=== PATIENT | male | born 1940 | race Caucasian/White ===

== ENCOUNTER → 2017-03-06 | Outpatient (CLI) | payer MEDICARE, BC ==
--- NOTE | 2017-03-06 10:42 | EST ---
DATE OF SERVICE: 03/06/2017 AGE: 76Y SEX: M HT: 68" WT: 177 lbs. Protocol Goran: Other: X Stage: Dur. of Exercise: *Heart Rate Blood Pressure *Rest: 71 Rest: 148/81 * *Max. Achieved: 87 Maximum BP: 138/76 85% PMHR: 124 100% PMHR: 146 *METS: INDICATIONS: Shortness of breath. MEDICATIONS: O2, BP medication, Metformin. CLINICAL INFORMATION: Hypertension, diabetes, shortness of breath, family history of coronary artery disease, history of smoking, 35 years, quit smoking 20 years ago, COPD. Resting ECG shows sinus rhythm, rate of 71 beats per minute, W[place] interval of 0.16, QRS of 0.08, normal ST-T waves. Utilizing a standard Lexiscan protocol, Lexiscan was given IV push followed by serial EKGs without any chest pain or pressure. Occasional PVCs are noted. No ST segment deviations or symptoms are reported. IMPRESSION: 1. Baseline rhythm is sinus with normal W[place] interval, normal ST-T waves. 2. Negative Lexiscan Cardiolite study. 3. Nuclear scintigrams to follow from radiology department.
--- NOTE | 2017-03-06 11:06 | NM ---
EXAMINATION TYPE: NM stress lexiscan cardiolite DATE OF EXAM: 03/06/2017 10:52 AM COMPARISON: NONE HISTORY: Precordial chest TECHNIQUE: After the intravenous administration of 11 mCi Tc 99m Sestamibi - Cardiolite resting SPEC T images acquired 45 minutes post injection. The patient received 0.4mg Lexiscan, 27.1 mCi Tc 99m Sestamibi - Stress images obtained [address] injection FINDINGS: Review of stress and rest SPECT images demonstrates no distinct perfusion abnormality. Fixed defect inferior wall may reflect remote insult versus attenuation artifact. Gated analysis shows normal wall motion with an estimated left ventricular ejection fraction of 55 %. IMPRESSION: No scintigraphic evidence for reversible ischemia.
== END | disposition home or self-care (01) ==
LOC: RADNMMAIN 08:37
PROVIDERS: ATTEND Internal Medicine
DX: R06.09 Other forms of dyspnea (principal)
CPT/HCPCS: 93017; 78452; A9500

== ENCOUNTER 2017-05-18 07:24 | Inpatient (IN) | payer MEDICARE, BC ==
[2017-05-18] MEDS ORDERED: IPRATROPIUM 0.5 MG/2.5 ML NEBU INHALATION STA (07:30)
[2017-05-18] MEDS ORDERED: ALBUTEROL NEBULIZED 2.5 MG/3 ML INHALATION STA (07:30)
[2017-05-18] MEDS ORDERED: methylPREDNISolone SOD SUCCI 125 MG/2 ML VIAL IV STA (07:30)
--- NOTE | 2017-05-18 07:33 | ED ---
General Adult HPI - General Stated complaint: sob Time Seen by Provider: 05/18/17 07:25 Source: RN notes reviewed - History of Present Illness Initial comments: This is a 76-year-old male with a past medical history significant for COPD per patient comes in today because of difficulty breathing. Patient states is difficult breathing started when he woke up this morning and he has and able to get relief. He called EMS to give him a breathing treatment on the way and he states he still is having hard time breathing. Patient denies any recent fever chills or cough. Patient denies any chest pain or palpitations. Patient denies any history of pulmonary and listens or congestive heart failure. Patient denies lightheadedness dizziness or near syncopal episode. Patient denies headache patient denies numbness weakness. Patient denies abdominal pain patient denies nausea vomiting or diarrhea. - Related Data Home Medications Medication Instructions Recorded Confirmed Chlorthalidone [Hygroton] 25 mg PO QAM 07/15/15 05/18/17 Doxycycline Hyclate [Vibramycin] 100 mg PO HS 07/15/15 05/18/17 Losartan [Cozaar] 50 mg PO QAM 07/15/15 05/18/17 Mometasone Furoate [Asmanex Hfa] 1 applic INHALATION DIRECTED PRN 07/15/15 Pravastatin Sodium [Pravachol] 80 mg PO HS 07/15/15 05/18/17 Pregabalin [Lyrica] 150 mg PO BID 07/15/15 05/18/17 Terazosin HCl [Hytrin] 10 mg PO DAILY 07/15/15 05/18/17 metFORMIN HCL [Glucophage] 500 mg PO BID 07/15/15 05/18/17 Propranolol HCl 60 mg PO HS 05/18/17 05/18/17 Allergies Allergy/AdvReac Type Severity Reaction Status Date / Time ciprofloxacin [From Cipro] Allergy Rash/Hives Verified 05/18/17 07:34 ciprofloxacin HCl Allergy Rash/Hives Verified 05/18/17 07:34 [From Cipro] Penicillins Allergy Rash/Hives Verified 05/18/17 07:34 Review of Systems ROS Statement: Those systems with pertinent positive or pertinent negative responses have been documented in the HPI. ROS Other: All systems not noted in ROS Statement are negative. Past Medical History Past Medical History: COPD, Diabetes Mellitus, Eye Disorder, Hyperlipidemia, Hypertension, Prostate Disorder, Skin Disorder Additional Past Medical History / Comment(s): DERMITITIS, LEFT CATARACT, HX OF NEUROPATHY JAYLA FEET History of Any Multi-Drug Resistant Organisms: None Reported Past Surgical History: Hernia Repair Past Anesthesia/Blood Transfusion Reactions: No Reported Reaction Smoking Status: Former smoker - Past Family History Father Family Medical History: Cancer Additional Family Medical History / Comment(s): COLON Sister(s) Family Medical History: Cancer Additional Family Medical History / Comment(s): REPRODUCTIVE General Exam - General Exam Comments Initial Comments: GENERAL: Patient is well-developed and well-nourished. Patient is nontoxic and well- hydrated and is in moderate distress. ENT: Neck is soft and supple. No significant lymphadenopathy is noted. Oropharynx is clear. Moist mucous membranes. Neck has full range of motion without eliciting any pain. EYES: The sclera were anicteric and conjunctiva were pink and moist. Extraocular movements were intact and pupils were equal round and reactive to light. Eyelids were unremarkable. PULMONARY: Patient has significantly decreased breath sounds with expiratory wheezing CARDIOVASCULAR: There is a regular rate and rhythm without any murmurs gallops or rubs. ABDOMEN: Soft and nontender with normal bowel sounds. No palpable organomegaly was noted. There is no palpable pulsatile mass. SKIN: Skin is clear with no lesions or rashes and otherwise unremarkable. NEUROLOGIC: Patient is alert and oriented x3. Cranial nerves II through XII are grossly intact. Motor and sensory are also intact. Normal speech, volume and content. Symmetrical smile. MUSCULOSKELETAL: Normal extremities with adequate strength and full range of motion. No lower extremity swelling or edema. No calf tenderness. LYMPHATICS: No significant lymphadenopathy is noted PSYCHIATRIC: Normal psychiatric evaluation. Normal interpersonal interactions appears functionally intact in deals appropriately with others. No signs of depression. No signs of anxiety. Course Vital Signs 05/18/17 05/18/17 05/18/17 07:25 07:40 07:56 Temperature 98.7 F Pulse Rate 80 75 79 Respiratory 20 Rate Blood Pressure 133/80 O2 Sat by Pulse 94 L Oximetry 05/18/17 05/18/17 05/18/17 08:04 08:10 08:24 Temperature Pulse Rate 76 76 79 Respiratory 16 Rate Blood Pressure 132/70 O2 Sat by Pulse 98 Oximetry 05/18/17 05/18/17 08:54 09:04 Temperature 98.6 F Pulse Rate 74 72 Respiratory 18 16 Rate Blood Pressure 118/63 124/67 O2 Sat by Pulse 92 L 94 L Oximetry Medical Decision Making - Medical Decision Making EKG shows normal sinus rhythm at 75 bpm [place] interval is 144 QRS is 98 QT interval 414 QTC is 462. Patient's EKG shows no ST segment elevation or depression or T wave abnormalities are noted. Chest x-ray shows a possible left lower lobe infiltrate - Lab Data Result diagrams: 05/18/17 07:45 05/18/17 07:45 Lab Results 05/18/17 05/18/17 05/18/17 Range/Units 07:45 07:45 07:45 WBC 14.2 H (3.8-10.6) k/uL RBC 5.98 H (4.30-5.90) m/uL Hgb 15.2 (13.0-17.5) gm/dL Hct 46.3 (39.0-53.0) % MCV 77.4 L (80.0-100.0) fL MCH 25.4 (25.0-35.0) pg MCHC 32.8 (31.0-37.0) g/dL RDW 16.3 H (11.5-15.5) % Plt Count 219 (150-450) k/uL Neutrophils % 86 % Lymphocytes % 7 % Monocytes % 4 % Eosinophils % 2 % Basophils % 0 % Neutrophils # 12.2 H (1.3-7.7) k/uL Lymphocytes # 1.0 (1.0-4.8) k/uL Monocytes # 0.6 (0-1.0) k/uL Eosinophils # 0.3 (0-0.7) k/uL Basophils # 0.0 (0-0.2) k/uL Hypochromasia Slight Anisocytosis Slight Microcytosis Slight PT (9.0-12.0) sec INR (<1.1) APTT (22.0-30.0) sec Sodium 143 (137-145) mmol/L Potassium 4.2 (3.5-5.1) mmol/L Chloride 104 (98-107) mmol/L Carbon Dioxide 28 (22-30) mmol/L Anion Gap 11 mmol/L BUN 16 (9-20) mg/dL Creatinine 0.97 (0.66-1.25) mg/dL Est GFR (MDRD) Af Amer >60 (>60 ml/min/1.73 sqM) Est GFR (MDRD) Non-Af >60 (>60 ml/min/1.73 sqM) Glucose 124 H (74-99) mg/dL Calcium 8.6 (8.4-10.2) mg/dL Magnesium 2.0 (1.6-2.3) mg/dL Total Bilirubin 0.7 (0.2-1.3) mg/dL AST 18 (17-59) U/L ALT 24 (21-72) U/L Alkaline Phosphatase 91 (38-126) U/L Total Creatine Kinase 69 (55-170) U/L CK-MB (CK-2) 1.7 (0.0-2.4) ng/mL CK-MB (CK-2) Rel Index 2.5 Troponin I <0.012 (0.000-0.034) ng/mL Total Protein 6.6 (6.3-8.2) g/dL Albumin 3.8 (3.5-5.0) g/dL 05/18/17 Range/Units 07:45 WBC (3.8-10.6) k/uL RBC (4.30-5.90) m/uL Hgb (13.0-17.5) gm/dL Hct (39.0-53.0) % MCV (80.0-100.0) fL MCH (25.0-35.0) pg MCHC (31.0-37.0) g/dL RDW (11.5-15.5) % Plt Count (150-450) k/uL Neutrophils % % Lymphocytes % % Monocytes % % Eosinophils % % Basophils % % Neutrophils # (1.3-7.7) k/uL Lymphocytes # (1.0-4.8) k/uL Monocytes # (0-1.0) k/uL Eosinophils # (0-0.7) k/uL Basophils # (0-0.2) k/uL Hypochromasia Anisocytosis Microcytosis PT 10.5 (9.0-12.0) sec INR 1.0 (<1.1) APTT 26.0 (22.0-30.0) sec Sodium (137-145) mmol/L Potassium (3.5-5.1) mmol/L Chloride (98-107) mmol/L Carbon Dioxide (22-30) mmol/L Anion Gap mmol/L BUN (9-20) mg/dL Creatinine (0.66-1.25) mg/dL Est GFR (MDRD) Af Amer (>60 ml/min/1.73 sqM) Est GFR (MDRD) Non-Af (>60 ml/min/1.73 sqM) Glucose (74-99) mg/dL Calcium (8.4-10.2) mg/dL Magnesium (1.6-2.3) mg/dL Total Bilirubin (0.2-1.3) mg/dL AST (17-59) U/L ALT (21-72) U/L Alkaline Phosphatase (38-126) U/L Total Creatine Kinase (55-170) U/L CK-MB (CK-2) (0.0-2.4) ng/mL CK-MB (CK-2) Rel Index Troponin I (0.000-0.034) ng/mL Total Protein (6.3-8.2) g/dL Albumin (3.5-5.0) g/dL Disposition Clinical Impression: Acute exacerbation of chronic obstructive airways disease, Pneumonia Disposition: ADMITTED IP TO THIS HOSP Referrals: Sahil Simms MD [Primary Care Provider] - 1-2 days Time of Disposition: 09:58
[2017-05-18 07:58] LABS: Anisocytosis Slight; Basophils % (A) 0 %; CH 24.9; CHCM 32.4; Eosinophils # (A) 0.3 k/uL (0-0.7); Eosinophils % (A) 2 %; HCT 46.3 % (39.0-53.0); HGB 15.2 gm/dL (13.0-17.5); Hypochromasia Slight; Luc % (Auto) 1; Lymphocytes % (A) 7 %; MCH 25.4 pg (25.0-35.0); MCHC 32.8 g/dL (31.0-37.0); MCV 77.4 fL (80.0-100.0); Mean Platelet Volume 6.9; Microcytosis Slight; Monocytes # (A) 0.6 k/uL (0-1.0); Monocytes % (A) 4 %; Neutrophils # (A) 12.2 k/uL (1.3-7.7); Neutrophils % (A) 86 %; RBC 5.98 m/uL (4.30-5.90); RDW 16.3 % (11.5-15.5); WBC 14.2 k/uL (3.8-10.6); WBC (Perox) 13.88
[2017-05-18 08:09] LABS: Prothrombin Time 10.5 sec (9.0-12.0)
[2017-05-18 08:10] LABS: ALT 24 U/L (21-72); AST 18 U/L (17-59); Alkaline Phosphatase 91 U/L (38-126); Anion Gap 11 mmol/L; Blood Urea Nitrogen 16 mg/dL (9-20); Calcium 8.6 mg/dL (8.4-10.2); Carbon Dioxide 28 mmol/L (22-30); Chloride 104 mmol/L (98-107); Glucose 124 mg/dL (74-99); Non-African American GFR(MDRD) >60 (>60 ml/min/1.73 sqM); Potassium 4.2 mmol/L (3.5-5.1); Sodium 143 mmol/L (137-145); Total Bilirubin 0.7 mg/dL (0.2-1.3); Total Protein 6.6 g/dL (6.3-8.2)
[2017-05-18 08:23] LABS: Creatine Kinase 69 U/L (55-170)
[2017-05-18 08:36] LABS: Creatine Kinase MB 1.7 ng/mL (0.0-2.4); Troponin I <0.012 ng/mL (0.000-0.034)
--- NOTE | 2017-05-18 08:45 | XR ---
EXAMINATION TYPE: XR chest 2V DATE OF EXAM: 05/18/2017 COMPARISON: 03/22/2017 HISTORY: 76-year-old male difficulty breathing TECHNIQUE: PA and lateral views FINDINGS: Heart is normal size. Large appearance to the main right and left pulmonary arteries. Hyperinflation with mild diffuse interstitial prominence. Some patchy opacities at the lung bases are unchanged. No significant pleural effusion. Opacity at the posterior lung base appears slightly increased. IMPRESSION: COPD, pulmonary arterial hypertension, and extensive chronic parenchymal changes. Patchy posterior ba silar opacity on the lateral view appears increased and could represent atelectasis or developing inf iltrate.
[2017-05-18] MEDS ORDERED: AZITHROMYCIN 500 MG in SODIUM CHLORIDE 0.9% 250 ML IVPB STA (09:24)
[2017-05-18] MEDS ORDERED: IPRATROPIUM-ALBUTEROL 3 ML NEB INHALATION PRN (09:58)
--- NOTE | 2017-05-18 11:49 | P.CNPUL ---
History of Present Illness Consult date: 05/18/17 Requesting physician: Partha Villalobos Reason for consult: COPD Chief complaint: Shortness of breath, cough and wheezing History of present illness: His is a 76-year-old white male with history of COPD, remote smoking history, patient is O2 dependent, not prednisone dependent, normally sees Dr. Bolanos as his primary care physician, and he sees Dr. Mackey for his pulmonary issues/ COPD. Patient presented with 1 day history of increased shortness of breath, cough, and wheezing. Cough is nonproductive, and denied any fever no chills no hemoptysis no chest pain. Patient has been compliant with all his meds and all his bronchodilators. Chest x-ray showed minimal atelectasis in the left base, but no clear-cut evidence of pneumonia. Patient had a slight leukocytosis on presentation, but no fever no chills were documented. denied any chest pain, no palpitations, no headaches no blurred vision no dizziness. No nausea no vomiting no abdominal pain no melena no hematemesis. No dysuria and no frequency no urgency. Patient has not smoked cigarettes in many years. Review of Systems 14 point review of systems were obtained, please refer to pertinent positives and negatives in HPI. Past Medical History Past Medical History: COPD, Diabetes Mellitus, Eye Disorder, Hyperlipidemia, Hypertension, Prostate Disorder, Skin Disorder Additional Past Medical History / Comment(s): DERMITITIS, LEFT CATARACT, HX OF NEUROPATHY JAYLA FEET History of Any Multi-Drug Resistant Organisms: None Reported Past Surgical History: Hernia Repair Past Anesthesia/Blood Transfusion Reactions: No Reported Reaction Smoking Status: Former smoker - Past Family History Father Family Medical History: Cancer Additional Family Medical History / Comment(s): COLON Sister(s) Family Medical History: Cancer Additional Family Medical History / Comment(s): REPRODUCTIVE Medications and Allergies Home Medications Medication Instructions Recorded Confirmed Type Chlorthalidone [Hygroton] 12.5 mg PO QAM 07/15/15 05/18/17 History Losartan [Cozaar] 50 mg PO QAM 07/15/15 05/18/17 History Mometasone Furoate [Asmanex Hfa] 2 puff INHALATION RT-DAILY PRN 07/15/15 History Pravastatin Sodium [Pravachol] 80 mg PO HS 07/15/15 05/18/17 History Pregabalin [Lyrica] 150 mg PO BID 07/15/15 05/18/17 History metFORMIN HCL [Glucophage] 500 mg PO BID 07/15/15 05/18/17 History Albuterol Nebulized [Ventolin 5 mg INHALATION RT-Q4H 05/18/17 05/18/17 History Nebulized] Albuterol Sulfate [Ventolin Hfa] 2 puff INHALATION RT-BID 05/18/17 05/18/17 History Clindamycin Phosphate [Cleocin T] 1 applic TOPICAL BID 05/18/17 05/18/17 History Desonide [Desowen] 1 applic TOPICAL BID 05/18/17 05/18/17 History Ketoconazole 2% Shampoo [Nizoral] 1 applic TOPICAL Q3D 05/18/17 05/18/17 History Propranolol HCl [Propranolol HCl 60 mg PO DAILY 05/18/17 05/18/17 History ER] Tiotropium [place] [Spiriva] 1 cap INHALATION RT-DAILY 05/18/17 05/18/17 History Allergies Allergy/AdvReac Type Severity Reaction Status Date / Time ciprofloxacin [From Cipro] Allergy Rash/Hives Verified 05/18/17 10:53 ciprofloxacin HCl Allergy Rash/Hives Verified 05/18/17 10:53 [From Cipro] Penicillins Allergy Rash/Hives Verified 05/18/17 10:53 Physical Exam Vitals: Vital Signs Temp Pulse Resp BP Pulse Ox 05/18/17 11:09 98.7 F 80 16 128/61 94 L 05/18/17 10:57 80 16 128/61 94 L 05/18/17 10:53 98.7 F 05/18/17 10:04 74 18 131/72 93 L 05/18/17 09:04 72 16 124/67 94 L 05/18/17 08:54 98.6 F 74 18 118/63 92 L 05/18/17 08:24 79 05/18/17 08:10 76 05/18/17 08:04 76 16 132/70 98 05/18/17 07:56 79 05/18/17 07:40 75 05/18/17 07:25 98.7 F 80 20 133/80 94 L Intake and Output 05/17/17 05/18/17 05/18/17 22:59 06:59 14:59 Other: Weight 78.018 kg Patient Weight 05/19/17 06:59 Weight 78.018 kg Physical Exam revealed a 76-year-old white male in mild respiratory distress, noted to be dyspneic with any activity even while trying to finish one sentence. HEENT:[Neck is supple.] [No neck masses.] [No thyromegaly.] [No JVD.] Chest: [Initially breath sound bilaterally, some wheezing on forced expiratory maneuver noted.] Cardiac Exam: [Normal S1 and S2, no S3 gallop, no murmur.] Abdomen: [Soft, nontender, no megaly, no rebound, no guarding, normal bowel sounds.] Extremities: [No clubbing, no edema, no cyanosis.] Neurological Exam: [No focal neurologic deficit.] Results COPD, extensive chronic parenchymal changes and basilar atelectasis as noted on the lateral view of the chest x-ray only. Strongly doubt pneumonia. - Laboratory Findings CBC and BMP: 05/18/17 07:45 05/18/17 07:45 PT/INR, D-dimer PT 10.5 sec (9.0-12.0) 05/18/17 07:45 INR 1.0 (<1.1) 05/18/17 07:45 Abnormal lab findings: Abnormal Labs 05/18/17 05/18/17 07:45 07:45 WBC 14.2 H RBC 5.98 H MCV 77.4 L RDW 16.3 H Neutrophils # 12.2 H Glucose 124 H Assessment and Plan Plan: 1 Acute exacerbation of COPD, and tracheobronchitis. 2 Multiple comorbidities including diabetes, hypertension, diabetic neuropathy, prostate disorder, and hypercholesterolemia. Recommendation: Continue present course of treatment including DuoNeb, methylprednisolone, Rocephin and Zithromax, I will add Symbicort, Mucinex, GI and DVT prophylaxis. We'll continue to follow. Time with Patient: Greater than 30
[2017-05-18] MEDS ORDERED: HEPARIN SODIUM,PORCINE 5,000 UNIT/ML 1 ML VIAL SQ SCH (12:00)
[2017-05-18] MEDS ORDERED: methylPREDNISolone SOD SUCCI 125 MG/2 ML VIAL IV SCH (12:00)
[2017-05-18] MEDS: PANTOPRAZOLE 40 MG TABLET PO SCH (13:30)
[2017-05-18] MEDS: guaiFENesin 600 MG TABLET.ER PO SCH ×2 (13:31→20:43)
[2017-05-18 17:08] LABS: Glucose,Whole Blood 151 mg/dL (75-99)
--- NOTE | 2017-05-18 17:17 | P.HPIM ---
History of Present Illness H&P Date: 05/18/17 Chief Complaint: Cough This is a pleasant 76-year-old patient of Dr. doyle. Patient chronic stable medical conditions include diabetes, hyperlipidemia, hypertension, peripheral neuropathy, and chronic hypoxic respiratory failure. Patient presents with 1 day of worsening short of breath cough with brown sputum and wheezing fever tired and rundown. Has maintained his appetite. Admitted with pneumonia start antibiotics. Review of Systems GEN.: [ Tired] EYES: [None] HEENT: [None] NECK: [None] RESPIRATORY: [As above] CARDIOVASCULAR: [None] GASTROINTESTINAL: [None] GENITOURINARY: [None] MUSCULOSKELETAL: [None] LYMPHATICS: [None] HEMATOLOGICAL: [None] PSYCHIATRY: [None] NEUROLOGICAL: [None] Past Medical History Past Medical History: COPD, Diabetes Mellitus, Eye Disorder, Hyperlipidemia, Hypertension, Prostate Disorder, Skin Disorder Additional Past Medical History / Comment(s): DERMITITIS, LEFT CATARACT, HX OF NEUROPATHY JAYLA FEET History of Any Multi-Drug Resistant Organisms: None Reported Past Surgical History: Hernia Repair Past Anesthesia/Blood Transfusion Reactions: No Reported Reaction Smoking Status: Former smoker Additional History: Patient smoked about 35 years, stopped 20 years ago. Lives by himself - Past Family History Father Family Medical History: Cancer Additional Family Medical History / Comment(s): COLON Sister(s) Family Medical History: Cancer Additional Family Medical History / Comment(s): REPRODUCTIVE Medications and Allergies Home Medications Medication Instructions Recorded Confirmed Type Chlorthalidone [Hygroton] 12.5 mg PO QAM 07/15/15 05/18/17 History Losartan [Cozaar] 50 mg PO QAM 07/15/15 05/18/17 History Mometasone Furoate [Asmanex Hfa] 2 puff INHALATION RT-DAILY PRN 07/15/15 History Pravastatin Sodium [Pravachol] 80 mg PO HS 07/15/15 05/18/17 History Pregabalin [Lyrica] 150 mg PO BID 07/15/15 05/18/17 History metFORMIN HCL [Glucophage] 500 mg PO BID 07/15/15 05/18/17 History Albuterol Nebulized [Ventolin 5 mg INHALATION RT-Q4H 05/18/17 05/18/17 History Nebulized] Albuterol Sulfate [Ventolin Hfa] 2 puff INHALATION RT-BID 05/18/17 05/18/17 History Clindamycin Phosphate [Cleocin T] 1 applic TOPICAL BID 05/18/17 05/18/17 History Desonide [Desowen] 1 applic TOPICAL BID 05/18/17 05/18/17 History Ketoconazole 2% Shampoo [Nizoral] 1 applic TOPICAL Q3D 05/18/17 05/18/17 History Propranolol HCl [Propranolol HCl 60 mg PO DAILY 05/18/17 05/18/17 History ER] Tiotropium [place] [Spiriva] 1 cap INHALATION RT-DAILY 05/18/17 05/18/17 History Allergies Allergy/AdvReac Type Severity Reaction Status Date / Time ciprofloxacin [From Cipro] Allergy Rash/Hives Verified 05/18/17 10:53 ciprofloxacin HCl Allergy Rash/Hives Verified 05/18/17 10:53 [From Cipro] Penicillins Allergy Rash/Hives Verified 05/18/17 10:53 Physical Exam VITAL SIGNS: Upon presentation, 98.7, 18, 20, 133/80, 94% on 2 L GENERAL: Average built, laying in bed, tired appearing. EYES: Pupils equal. Conjunctiva normal. HEENT: External appearance of nose and ears normal, oral cavity grossly normal. NECK: JVD not raised; masses not palpable. HEART: First and second heart sounds are normal; no edema. LUNGS: Respiratory rate increased, decreased breath sounds, prolonged expiration and some basal crackles. ABDOMEN: Soft, nontender, liver spleen not palpable, no masses palpable. LYMPHATICS: No lymph nodes palpable in the axilla and neck. PSYCH: Alert and oriented x3; mood and affect normal. NEUROLOGICAL: Cranial nerves grossly intact; no facial asymmetry, power and sensation grossly intact. Results CBC & Chem 7: 05/18/17 07:45 05/18/17 07:45 Labs: White count 14.2, hemoglobin 15.2, platelets 219, potassium 4.2 Chest x-ray reviewed shows a right basal infiltrate Assessment and Plan Plan: Assessment: -Right basal pneumonia, suspect gram-negative organism causing acute exacerbation of COPD in an ex-smoker -Diabetes mellitus type 2 on oral hypoglycemic -Hyperlipidemia -Essential hypertension -Peripheral neuropathy secondary to diabetes -Chronic hypoxic respiratory failure from COPD Plan: Patient started on IV ceftriaxone and Zithromax, put on nebulized broncho- dilators IV Solu-Medrol. Home medications are resumed. Accu-Cheks will be followed. Pulmonary was consulted.Care was discussed with the patient, questions were answered
[2017-05-18] MEDS: INSULIN LISPRO (humaLOG) 300 UNIT/3 ML VIAL SQ SCH ×2 (17:30→20:43)
[2017-05-18] MEDS: ENOXAPARIN 40 MG/0.4 ML SYRINGE SQ SCH (17:30)
[2017-05-18 17:38] VITALS: BMI 26.1
[2017-05-18] MEDS: PROPRANOLOL LA 60 MG CAP.SA.24H PO SCH (17:48)
[2017-05-18] MEDS: LOSARTAN 50 MG TAB PO SCH (17:48)
[2017-05-18 20:32] LABS: Glucose,Whole Blood 181 mg/dL (75-99)
[2017-05-18] MEDS: PREGABALIN 75 MG CAP PO SCH (20:42)
[2017-05-18] MEDS: metFORMIN 500 MG TAB PO SCH (20:43)
[2017-05-18] MEDS: SYMBICORT 160-4.5 MCG INHALER INHALATION SCH (20:47)
[2017-05-18] MEDS: IPRATROPIUM-ALBUTEROL 3 ML NEB INHALATION SCH ×2 (20:47)
[2017-05-18] MEDS ORDERED: PRAVASTATIN SODIUM 80 MG TAB PO SCH (21:00)
[2017-05-18] MEDS ORDERED: NON-FORMULARY DRUG (Clindamycin Phosphate [Cleocin T] 1 APPLIC) TOPICAL SCH (21:00)
[2017-05-19] MEDS: HYDROCORTISONE 1% CREAM 30 GM TUBE TOPICAL SCH ×2 (00:42→13:02)
[2017-05-19] MEDS: methylPREDNISolone SOD SUCCI 40 MG/ML 1 ML VIAL IV SCH ×2 (00:42→09:06)
[2017-05-19 07:05] LABS: Glucose,Whole Blood 139 mg/dL (75-99)
[2017-05-19 08:32] VITALS: BP 114/71; RESP 16; TEMP 97
[2017-05-19] MEDS: SYMBICORT 160-4.5 MCG INHALER INHALATION SCH (08:48)
[2017-05-19] MEDS: IPRATROPIUM-ALBUTEROL 3 ML NEB INHALATION SCH ×2 (08:48→13:17)
[2017-05-19] MEDS ORDERED: AZITHROMYCIN 500 MG TAB PO SCH (09:00)
[2017-05-19] MEDS ORDERED: CHLORTHALIDONE 25 MG TAB PO SCH (09:00)
[2017-05-19] MEDS: metFORMIN 500 MG TAB PO SCH (09:05)
[2017-05-19] MEDS: PROPRANOLOL LA 60 MG CAP.SA.24H PO SCH (09:05)
[2017-05-19] MEDS: LOSARTAN 50 MG TAB PO SCH (09:05)
[2017-05-19] MEDS: INSULIN LISPRO (humaLOG) 300 UNIT/3 ML VIAL SQ SCH ×2 (09:05→13:02)
[2017-05-19] MEDS: PANTOPRAZOLE 40 MG TABLET PO SCH (09:05)
[2017-05-19] MEDS: guaiFENesin 600 MG TABLET.ER PO SCH (09:05)
[2017-05-19] MEDS: ENOXAPARIN 40 MG/0.4 ML SYRINGE SQ SCH ×2 (09:06→09:12)
[2017-05-19] MEDS: PREGABALIN 75 MG CAP PO SCH (09:12)
[2017-05-19 10:15] LABS: Anisocytosis Slight; Basophils % (A) 0 %; CH 24.8; CHCM 31.3; Eosinophils % (A) 0 %; HCT 45.3 % (39.0-53.0); HDW 3.06; HGB 14.3 gm/dL (13.0-17.5); Hypochromasia Moderate; Luc # (Auto) 0.07; Luc % (Auto) 1; Lymphocytes # (A) 1.2 k/uL (1.0-4.8); Lymphocytes % (A) 8 %; MCH 25.1 pg (25.0-35.0); MCHC 31.6 g/dL (31.0-37.0); MCV 79.5 fL (80.0-100.0); Mean Platelet Volume 7.6; Microcytosis Slight; Monocytes # (A) 0.7 k/uL (0-1.0); Monocytes % (A) 4 %; Neutrophils # (A) 13.3 k/uL (1.3-7.7); Neutrophils % (A) 87 %; RBC 5.69 m/uL (4.30-5.90); RDW 16.4 % (11.5-15.5); WBC 15.3 k/uL (3.8-10.6); WBC (Perox) 15.29
--- NOTE | 2017-05-19 10:31 | P.PN ---
Subjective This is a 76-year-old white male with history of COPD, remote smoking history, patient is O2 dependent, not prednisone dependent, normally sees Dr. Simms as his primary care physician, and he sees Dr. Mackey for his pulmonary issues/ COPD. Patient presented with 1 day history of increased shortness of breath, cough, and wheezing. Cough is nonproductive, and denied any fever no chills no hemoptysis no chest pain. Patient has been compliant with all his meds and all his bronchodilators. Chest x-ray showed minimal atelectasis in the left base, but no clear-cut evidence of pneumonia. Patient had a slight leukocytosis on presentation, but no fever no chills were documented. Denied any chest pain, no palpitations, no headaches no blurred vision no dizziness. No nausea no vomiting no abdominal pain no melena no hematemesis. No dysuria and no frequency no urgency. Patient has not smoked cigarettes in many years. The patient is seen again today 05/19/2017 on the regular medical floor. He is awake and alert in no acute distress. He is breathing easier today as compared to yesterday. He is anxious to go home. He denies any worsening shortness of breath, cough or congestion. He is still dyspneic on minimal exertion, he is oxygen dependent. Objective - Vital Signs Vital signs: Vital Signs Temp 97.0 F L 05/19/17 07:00 Pulse 72 05/19/17 08:57 Resp 16 05/19/17 07:00 BP 114/71 05/19/17 07:00 Pulse Ox 92 L 05/19/17 07:00 Intake & Output 05/18/17 05/19/17 05/19/17 18:59 06:59 18:59 Intake Total 200 Output Total 550 Balance 200 -550 Weight 78.018 kg Intake: Oral 200 Output: Urine 550 Other: Voiding Method Toilet # Voids 1 # Bowel Movements 1 - Exam GENERAL EXAM: Alert, active, comfortable in no apparent distress. HEAD: Normocephalic. EYES: Normal reaction of pupils, equal size. NOSE: Clear with pink turbinates. THROAT: No erythema or exudates. NECK: No masses, no JVD. CHEST: No chest wall deformity. LUNGS: Equal air entry with intent expiratory wheeze. Diminished. CVS: S1 and S2 normal with no audible murmurs, regular rhythm. ABDOMEN: No hepatosplenomegaly, normal bowel sounds, no guarding or rigidity. SPINE: No scoliosis or deformity SKIN: No rashes CENTRAL NERVOUS SYSTEM: No focal deficits, tone is normal in all 4 extremities. Extremities: There is no peripheral edema. No clubbing, no cyanosis. Peripheral pulses are intact. - Labs CBC & Chem 7: 05/18/17 07:45 05/18/17 07:45 Labs: Abnormal Lab Results - Last 24 Hours (Table) 05/18/17 05/18/17 05/19/17 Range/Units 17:06 20:31 06:44 POC Glucose (mg/dL) 151 H 181 H 139 H (75-99) mg/dL Assessment and Plan Plan: Impression: #1 Acute exacerbation of severe oxygen dependent chronic obstructive pulmonary disease, complicated by purulent tracheobronchitis. #2 Diabetes mellitus. #3 Hypertension. #4 Diabetic neuropathy. #5 Benign prosthetic hypertrophy. #6 Hyperlipidemia. Plan: The patient was seen and evaluated by Dr. Coughlin. He is cleared for discharge from the pulmonary standpoint. He will continue his home pulmonary medications including albuterol nebulized treatments, albuterol HFA, Spiriva, and Symbicort 160/4.52 inhalations twice a day. He should complete a prednisone taper starting tomorrow at 40 mg daily for 4 days and he'll follow-up in our office in 1-2 weeks' time. He is however encouraged to call sooner if any recurrence of symptoms or other questions or concerns.
[2017-05-19 10:41] LABS: Anion Gap 15 mmol/L; Blood Urea Nitrogen 22 mg/dL (9-20); Calcium 9.1 mg/dL (8.4-10.2); Carbon Dioxide 25 mmol/L (22-30); Chloride 102 mmol/L (98-107); Glucose 170 mg/dL (74-99); Non-African American GFR(MDRD) >60 (>60 ml/min/1.73 sqM); Potassium 4.1 mmol/L (3.5-5.1); Sodium 142 mmol/L (137-145)
[2017-05-19 12:38] LABS: Glucose,Whole Blood 126 mg/dL (75-99)
[2017-05-19 13:30] VITALS: PULSE 72
--- NOTE | 2017-05-19 17:06 | P.DS ---
Providers Date of admission: 05/18/17 09:58 Expected date of discharge: 05/19/17 Attending physician: Partha Villalobos Consults: Dr. Coughlin from pulmonary Primary care physician: [facility] Course: Final diagnosis: -Right basal pneumonia, suspect gram-negative organism causing acute exacerbation of COPD in an ex-smoker -Diabetes mellitus type 2 on oral hypoglycemic -Hyperlipidemia -Essential hypertension -Peripheral neuropathy secondary to diabetes -Chronic hypoxic respiratory failure from COPD -Acute COPD exacerbation in an ex-smoker Patient admitted with COPD exacerbation secondary to pneumonia. Responded well to nebulized bronchodilators antibiotics and steroids. Seen by Dr. Antonio from pulmonary and to be discharged On examination: Lungs decreased breath sounds and mild wheezing. Plan - Discharge Summary New Discharge Prescriptions: New Cefuroxime Axetil [Ceftin] 500 mg PO BID #6 tab predniSONE 10 mg PO DAILY #30 tab Continue metFORMIN HCL [Glucophage] 500 mg PO BID Pregabalin [Lyrica] 150 mg PO BID Pravastatin Sodium [Pravachol] 80 mg PO HS Losartan [Cozaar] 50 mg PO QAM Chlorthalidone [Hygroton] 12.5 mg PO QAM Mometasone Furoate [Asmanex Hfa] 2 puff INHALATION RT-DAILY PRN PRN Reason: Shortness Of Breath Clindamycin Phosphate [Cleocin T] 1 applic TOPICAL BID Albuterol Sulfate [Ventolin HFA] 2 puff INHALATION RT-BID Albuterol Nebulized [Ventolin Nebulized] 5 mg INHALATION RT-Q4H Tiotropium [place] [Spiriva] 1 cap INHALATION RT-DAILY Propranolol HCl [Propranolol HCl ER] 60 mg PO DAILY Ketoconazole 2% Shampoo [Nizoral] 1 applic TOPICAL Q3D Desonide [Desowen] 1 applic TOPICAL BID Discharge Medication List Chlorthalidone [Hygroton] 12.5 mg PO QAM 07/15/15 [History] Losartan [Cozaar] 50 mg PO QAM 07/15/15 [History] Mometasone Furoate [Asmanex Hfa] 2 puff INHALATION RT-DAILY PRN 07/15/15 [ History] Pravastatin Sodium [Pravachol] 80 mg PO HS 07/15/15 [History] Pregabalin [Lyrica] 150 mg PO BID 07/15/15 [History] metFORMIN HCL [Glucophage] 500 mg PO BID 07/15/15 [History] Albuterol Nebulized [Ventolin Nebulized] 5 mg INHALATION RT-Q4H 05/18/17 [ History] Albuterol Sulfate [Ventolin HFA] 2 puff INHALATION RT-BID 05/18/17 [History] Clindamycin Phosphate [Cleocin T] 1 applic TOPICAL BID 05/18/17 [History] Desonide [Desowen] 1 applic TOPICAL BID 05/18/17 [History] Ketoconazole 2% Shampoo [Nizoral] 1 applic TOPICAL Q3D 05/18/17 [History] Propranolol HCl [Propranolol HCl ER] 60 mg PO DAILY 05/18/17 [History] Tiotropium [place] [Spiriva] 1 cap INHALATION RT-DAILY 05/18/17 [History] Cefuroxime Axetil [Ceftin] 500 mg PO BID #6 tab 05/19/17 [Rx] predniSONE 10 mg PO DAILY #30 tab 05/19/17 [Rx] Follow up Appointment(s)/Referral(s): [facility] [Other] - 1 Week Sahil Simms MD [Primary Care Provider] - 1 Week Discharge Disposition: HOME SELF-CARE
== END 2017-05-19 14:32 | disposition home or self-care (01) | DRG 190 ==
LOC: EC 07:24 → 4MS4W 09:58
PROVIDERS: ADMIT Hospitalist; ATTEND Hospitalist
DX: J44.0 Chronic obstructive pulmonary disease with (acute) lower respiratory infection (principal); J15.6 Pneumonia due to other Gram-negative bacteria; J96.11 Chronic respiratory failure with hypoxia; J98.11 Atelectasis; J44.1 Chronic obstructive pulmonary disease with (acute) exacerbation; E11.42 Type 2 diabetes mellitus with diabetic polyneuropathy; E78.5 Hyperlipidemia, unspecified; I10 Essential (primary) hypertension; H26.9 Unspecified cataract; N42.9 Disorder of prostate, unspecified; Z99.81 Dependence on supplemental oxygen; Z79.84 Long term (current) use of oral hypoglycemic drugs; Z79.899 Other long term (current) drug therapy; Z87.891 Personal history of nicotine dependence; Z88.1 Allergy status to other antibiotic agents; Z88.0 Allergy status to penicillin
CPT/HCPCS: 36415; 71020; 80048; 80053; 82550; 82553; 83605; 83735; 84484; 85025; 85610; 85730; 87040; 93005; 94640; 96365; 96367; 96375; 99285

== ENCOUNTER 2019-03-23 08:33 | Inpatient (IN) | payer MEDICARE, BC ==
[2019-03-23] MEDS ORDERED: methylPREDNISolone SOD SUCCI 125 MG/2 ML VIAL IV STA (09:11)
[2019-03-23] MEDS ORDERED: IPRATROPIUM-ALBUTEROL 3 ML NEB INHALATION STA ×3 (09:11→10:43)
--- NOTE | 2019-03-23 09:44 | ED ---
SOB HPI - General Chief Complaint: Shortness of Breath Stated Complaint: Sob Time Seen by Provider: 03/23/19 08:43 Source: patient, RN notes reviewed Mode of arrival: wheelchair - History of Present Illness Initial Comments: This is a 78-year-old male history of COPD who states she's had a progressively worsening cough and shortness of breath for the past week. He denies any o rthopnea. He has exertional dyspnea and decreased responsiveness to his medication which includes 3 L of home oxygen. He denies any fevers chills sweats or chest pain. He does state he has a cough with a lot of white phlegm. No overt peripheral edema he states. No other complaints at this time MD Complaint: shortness of breath, cough - Related Data Home Medications Medication Instructions Recorded Confirmed Chlorthalidone [Hygroton] 12.5 mg PO QAM 07/15/15 03/23/19 Losartan [Cozaar] 50 mg PO QAM 07/15/15 03/23/19 Pravastatin Sodium [Pravachol] 80 mg PO HS 07/15/15 03/23/19 Pregabalin [Lyrica] 150 mg PO BID 07/15/15 03/23/19 metFORMIN HCL [Glucophage] 500 mg PO BID 07/15/15 03/23/19 Albuterol Nebulized [Ventolin 5 mg INHALATION RT-Q4H 05/18/17 03/23/19 Nebulized] Ketoconazole 2% Shampoo [Nizoral] 1 applic TOPICAL Q3D 05/18/17 03/23/19 Propranolol HCl [Propranolol HCl 60 mg PO HS 05/18/17 03/23/19 ER] Tiotropium [place] [Spiriva] 1 cap INHALATION RT-DAILY 05/18/17 03/23/19 Albuterol Sulfate [Proventil Hfa] 1 - 2 puff INHALATION RT-Q4H 03/23/19 03/23/19 Cholecalciferol [Vitamin D3 (25 1,000 unit PO DAILY 03/23/19 03/23/19 Mcg = 1000 Iu)] Cyanocobalamin (Vitamin B-12) 1,000 mcg PO DAILY 03/23/19 03/23/19 [Vitamin B-12] Mometasone Furoate [Asmanex] 1 puff INHALATION RT-BID 03/23/19 03/23/19 Pyridoxine [Vitamin B-6] 50 mg PO DAILY 03/23/19 03/23/19 Tadalafil [Cialis] 5 mg PO DAILY 03/23/19 03/23/19 Terazosin HCl 10 mg PO DAILY 03/23/19 03/23/19 Triamcinolone 0.1% Cream [Kenalog 1 applicatio TOPICAL BID PRN 03/23/19 03/23/19 0.1% Cream] Allergies Allergy/AdvReac Type Severity Reaction Status Date / Time ciprofloxacin [From Cipro] Allergy Rash/Hives Verified 03/23/19 09:28 ciprofloxacin HCl Allergy Rash/Hives Verified 03/23/19 09:28 [From Cipro] Penicillins Allergy Rash/Hives Verified 03/23/19 09:28 Review of Systems ROS Statement: Those systems with pertinent positive or pertinent negative responses have been documented in the HPI. ROS Other: All systems not noted in ROS Statement are negative. Past Medical History Past Medical History: COPD, Diabetes Mellitus, Eye Disorder, Hyperlipidemia, Hypertension, Prostate Disorder, Skin Disorder Additional Past Medical History / Comment(s): DERMITITIS, LEFT CATARACT, HX OF NEUROPATHY JAYLA FEET History of Any Multi-Drug Resistant Organisms: None Reported Past Surgical History: Hernia Repair Past Anesthesia/Blood Transfusion Reactions: No Reported Reaction Past Psychological History: No Psychological Hx Reported Smoking Status: Former smoker Past Alcohol Use History: None Reported Past Drug Use History: None Reported - Past Family History Father Family Medical History: Cancer Additional Family Medical History / Comment(s): COLON Sister(s) Family Medical History: Cancer Additional Family Medical History / Comment(s): REPRODUCTIVE General Exam - General Exam Comments Initial Comments: This is a well-developed well-nourished awake alert oriented x 3 male General appearance: alert, in no apparent distress Head exam: Present: atraumatic, normocephalic, normal inspection Eye exam: Present: normal appearance, PERRL, EOMI. Absent: scleral icterus, conjunctival injection, periorbital swelling ENT exam: Present: normal exam, mucous membranes moist Neck exam: Present: normal inspection, full ROM, other (No stridor JVD or bruits). Absent: tenderness, meningismus, lymphadenopathy Respiratory exam: Present: respiratory distress, wheezes, accessory muscle use, decreased breath sounds. Absent: rales, rhonchi, stridor Cardiovascular Exam: Present: regular rate, normal rhythm, normal heart sounds. Absent: systolic murmur, diastolic murmur, rubs, gallop, clicks GI/Abdominal exam: Present: soft, normal bowel sounds. Absent: distended, tenderness, guarding, rebound, rigid Extremities exam: Present: normal inspection, full ROM, normal capillary refill. Absent: tenderness, pedal edema, joint swelling, calf tenderness Back exam: Present: normal inspection Neurological exam: Present: alert, oriented X3, CN II-XII intact Psychiatric exam: Present: normal affect, normal mood Skin exam: Present: warm, dry, intact, normal color. Absent: rash Course Vital Signs 03/23/19 03/23/19 03/23/19 08:35 08:37 09:20 Temperature 98.2 F Pulse Rate 77 73 Respiratory 28 H 18 Rate Blood Pressure 119/61 O2 Sat by Pulse 87 L Oximetry 03/23/19 03/23/19 03/23/19 09:33 09:37 11:04 Temperature Pulse Rate 76 73 74 Respiratory 16 Rate Blood Pressure 113/74 O2 Sat by Pulse 93 L Oximetry 03/23/19 03/23/19 11:17 11:52 Temperature Pulse Rate 72 72 Respiratory Rate Blood Pressure O2 Sat by Pulse Oximetry - Reevaluation(s) Reevaluation #1: 03/23/19 10:45 Patient does state that he feels just slightly better he still has diffuse wheezing. His pulse ox has improved however he will get repeated updraft treatments as well as ambulation for evaluation for dyspnea Medical Decision Making - Medical Decision Making Patient was reevaluated on multiple occasions he did acute much improved after the treatment rendered thus far. He will require admission. Discussed with Dr. Saha. Dr. Lambert will be consulted. - Lab Data Result diagrams: 03/23/19 08:57 03/23/19 08:57 Lab Results 03/23/19 03/23/19 03/23/19 Range/Units 08:57 08:57 08:57 WBC 8.9 (3.8-10.6) k/uL RBC 5.65 (4.30-5.90) m/uL Hgb 14.6 (13.0-17.5) gm/dL Hct 47.7 (39.0-53.0) % MCV 84.5 (80.0-100.0) fL MCH 25.8 (25.0-35.0) pg MCHC 30.5 L (31.0-37.0) g/dL RDW 16.5 H (11.5-15.5) % Plt Count 223 (150-450) k/uL Neutrophils % 73 % Lymphocytes % 12 % Monocytes % 7 % Eosinophils % 7 % Basophils % 0 % Neutrophils # 6.5 (1.3-7.7) k/uL Lymphocytes # 1.1 (1.0-4.8) k/uL Monocytes # 0.6 (0-1.0) k/uL Eosinophils # 0.6 (0-0.7) k/uL Basophils # 0.0 (0-0.2) k/uL Hypochromasia Slight Anisocytosis Slight PT (9.0-12.0) sec INR (<1.2) APTT (22.0-30.0) sec Sodium 141 (137-145) mmol/L Potassium 4.4 (3.5-5.1) mmol/L Chloride 98 (98-107) mmol/L Carbon Dioxide 37 H (22-30) mmol/L Anion Gap 6 mmol/L BUN 19 (9-20) mg/dL Creatinine 0.83 (0.66-1.25) mg/dL Est GFR (CKD-EPI)AfAm >90 (>60 ml/min/1.73 sqM) Est GFR (CKD-EPI)NonAf 86 (>60 ml/min/1.73 sqM) Glucose 113 H (74-99) mg/dL Calcium 8.7 (8.4-10.2) mg/dL Magnesium 1.9 (1.6-2.3) mg/dL Total Bilirubin 0.8 (0.2-1.3) mg/dL AST 21 (17-59) U/L ALT 21 (21-72) U/L Alkaline Phosphatase 83 (38-126) U/L Creatine Kinase 46 L (55-170) U/L Troponin I (0.000-0.034) ng/mL NT-Pro-B Natriuret Pep 356 pg/mL Total Protein 6.7 (6.3-8.2) g/dL Albumin 4.1 (3.5-5.0) g/dL 03/23/19 03/23/19 Range/Units 08:57 08:57 WBC (3.8-10.6) k/uL RBC (4.30-5.90) m/uL Hgb (13.0-17.5) gm/dL Hct (39.0-53.0) % MCV (80.0-100.0) fL MCH (25.0-35.0) pg MCHC (31.0-37.0) g/dL RDW (11.5-15.5) % Plt Count (150-450) k/uL Neutrophils % % Lymphocytes % % Monocytes % % Eosinophils % % Basophils % % Neutrophils # (1.3-7.7) k/uL Lymphocytes # (1.0-4.8) k/uL Monocytes # (0-1.0) k/uL Eosinophils # (0-0.7) k/uL Basophils # (0-0.2) k/uL Hypochromasia Anisocytosis PT 10.3 (9.0-12.0) sec INR 1.0 (<1.2) APTT 26.2 (22.0-30.0) sec Sodium (137-145) mmol/L Potassium (3.5-5.1) mmol/L Chloride (98-107) mmol/L Carbon Dioxide (22-30) mmol/L Anion Gap mmol/L BUN (9-20) mg/dL Creatinine (0.66-1.25) mg/dL Est GFR (CKD-EPI)AfAm (>60 ml/min/1.73 sqM) Est GFR (CKD-EPI)NonAf (>60 ml/min/1.73 sqM) Glucose (74-99) mg/dL Calcium (8.4-10.2) mg/dL Magnesium (1.6-2.3) mg/dL Total Bilirubin (0.2-1.3) mg/dL AST (17-59) U/L ALT (21-72) U/L Alkaline Phosphatase (38-126) U/L Creatine Kinase (55-170) U/L Troponin I <0.012 (0.000-0.034) ng/mL NT-Pro-B Natriuret Pep pg/mL Total Protein (6.3-8.2) g/dL Albumin (3.5-5.0) g/dL - EKG Data EKG shows normal: sinus rhythm (Sinus rhythm with PACs rate was 69. Interval 138 QRS duration 100 QT since QTC 396/424 left anterior fascicular block) - Radiology Data Radiology results: report reviewed (Review the imaging and report no acute findings seen.), image reviewed Critical Care Time Critical Care Time: Yes Critical Care Time: 39 minutes of critical care, which includes initial presentation with history physical labs x-rays multiple reevaluation patient responsive therapy review of old charting available. Discussed with the admitting physician. Documentation the above admission orders. Patient demonstrated minimal improvement to emergency department treatment Disposition Clinical Impression: Adult respiratory distress syndrome, Acute exacerbation of chronic obstructive airways disease, Hypoxemia Disposition: ADMITTED IP TO THIS HOSP Condition: Fair Referrals: Sahil Simms MD [Primary Care Provider] - 1-2 days
[2019-03-23 09:55] LABS: Anisocytosis Slight; Basophils % (A) 0 %; Eosinophils # (A) 0.6 k/uL (0-0.7); Eosinophils % (A) 7 %; HCT 47.7 % (39.0-53.0); HGB 14.6 gm/dL (13.0-17.5); Hypochromasia Slight; Lymphocytes # (A) 1.1 k/uL (1.0-4.8); Lymphocytes % (A) 12 %; MCH 25.8 pg (25.0-35.0); MCHC 30.5 g/dL (31.0-37.0); MCV 84.5 fL (80.0-100.0); Mean Platelet Volume 6.6; Monocytes # (A) 0.6 k/uL (0-1.0); Monocytes % (A) 7 %; Neutrophils # (A) 6.5 k/uL (1.3-7.7); Neutrophils % (A) 73 %; Platelet Count 223 k/uL (150-450); RBC 5.65 m/uL (4.30-5.90); RDW 16.5 % (11.5-15.5); WBC 8.9 k/uL (3.8-10.6)
[2019-03-23 10:00] LABS: ALT 21 U/L (21-72); AST 21 U/L (17-59); Albumin 4.1 g/dL (3.5-5.0); Alkaline Phosphatase 83 U/L (38-126); Anion Gap 6 mmol/L; Blood Urea Nitrogen 19 mg/dL (9-20); Calcium 8.7 mg/dL (8.4-10.2); Carbon Dioxide 37 mmol/L (22-30); Chloride 98 mmol/L (98-107); Creatine Kinase 46 U/L (55-170); Glucose 113 mg/dL (74-99); Magnesium 1.9 mg/dL (1.6-2.3); Potassium 4.4 mmol/L (3.5-5.1); Sodium 141 mmol/L (137-145); Total Bilirubin 0.8 mg/dL (0.2-1.3); Total Protein 6.7 g/dL (6.3-8.2)
--- NOTE | 2019-03-23 10:07 | XR ---
EXAMINATION TYPE: XR chest 2V DATE OF EXAM: 03/23/2019 COMPARISON: Prior chest x-ray 05/18/2017, 12/29/[address] 04/18/2016 HISTORY: Difficulty breathing, shortness of breath TECHNIQUE: Frontal and lateral views of the chest are obtained. FINDINGS: Prominent lung volumes persists compatible with underlying COPD, there is flattening of th e hemidiaphragms and increased AP diameter chest. There is overlying artifact on the lateral exam pos teriorly. No evident airspace disease, pneumothorax, or pleural effusion. Flowing anterior osteophyte s of the lower thoracic spine may be indicative of diffuse idiopathic skeletal hyperostosis. Cardiac mediastinal silhouette, pulmonary vascularity and lana not significantly changed, prominence of pulmo nary artery could be due to pulmonary artery hypertension. There are coronary artery calcifications, overlying cardiac leads. IMPRESSION: No acute cardiopulmonary process. Essentially stable findings as described above. Emphys marcy.
[2019-03-23 10:08] LABS: Partial Thromboplastin Time 26.2 sec (22.0-30.0); Prothrombin Time 10.3 sec (9.0-12.0)
[2019-03-23] MEDS ORDERED: TRIAMCINOLONE 0.1% CREAM 80 GM TUBE TOPICAL PRN (12:12)
[2019-03-23] MEDS ORDERED: MAGNESIUM SULFATE-D5W PMX 1 GM in DEXTROSE/WATER 1 100ML.BAG IVPB ONE (12:17)
[2019-03-23] MEDS ORDERED: ACETAMINOPHEN TAB 325 MG TAB PO PRN (14:43)
[2019-03-23] MEDS ORDERED: IPRATROPIUM-ALBUTEROL 3 ML NEB INHALATION PRN (15:19)
[2019-03-23] MEDS: IPRATROPIUM-ALBUTEROL 3 ML NEB INHALATION SCH ×3 (15:40→23:17)
[2019-03-23] MEDS ORDERED: NALOXONE 0.4 MG/ML 1 ML VIAL IV PRN (15:59)
--- NOTE | 2019-03-23 16:03 | P.HPIM ---
History of Present Illness H&P Date: 03/23/19 Chief Complaint: shortness of breath 78-year-old male with PMH of COPD on 3 L home O2, diabetes mellitus, hypertension and hyperlipidemia presents the ED for shortness of breath and wheezing. Patient states that he was at the Pulmonology clinic to see Dr. Mackey today. he did not have an appointment and was not unable to be seen, was told to go to the hospital. Patient reports shortness of breath and wheezing that has been getting worse over the past month. He also complains of cough that is productive of white sputum along with rhinorrhea. Patient also complains of a bitemporal headache that started while in the ED. He denies any lower extremity edema, nausea, vo miting, fever, chest pain, palpitations, changes in urination or bowel habits. He denies any dizziness, numbness/weakness/tingling of the extremities. In the ED, CBC was unremarkable. Coagulation panel was negative. CMP showed a bicarbonate of 37 and glucose of 113. Troponin was less than 0.012, EKGshowing sinus rhythm with PAC. Stable findings on chest x-ray. Patient is admitted for COPD exacerbation, pulmonology on consult. Review of Systems Pertinent positives and negatives as discussed in HPI, a complete review of systems was performed and all other systems are negative. Past Medical History Past Medical History: COPD, Diabetes Mellitus, Eye Disorder, GERD/Reflux, GI Bleed, Hearing Disorder / Deafness, Hyperlipidemia, Hypertension, Pneumonia, Prostate Disorder, Respiratory Disorder, Skin Disorder Additional Past Medical History / Comment(s): Chronic hypoxic respiratory failure, home oxygen at 3L/NC ATC, NIDDM type II, neuropathy bilateral feet, BPH, occasional dermatitis since [place], bilateral tinnitis, gastric ulcer, lower GI bleed, small hiatal hernia, past admission for colitis/sepsis-pt does not recall this. History of Any Multi-Drug Resistant Organisms: None Reported Past Surgical History: Hernia Repair Additional Past Surgical History / Comment(s): Incisional hernias x2, bilateral cataract removals, colonoscopy with benign polyp, vasectomy Past Anesthesia/Blood Transfusion Reactions: No Reported Reaction Smoking Status: Former smoker - Past Family History Mother Family Medical History: No Reported History Additional Family Medical History / Comment(s): Mother was healthy. Father Family Medical History: Cancer Additional Family Medical History / Comment(s): COLON Sister(s) Family Medical History: Cancer Additional Family Medical History / Comment(s): REPRODUCTIVE Medications and Allergies Home Medications Medication Instructions Recorded Confirmed Type Chlorthalidone [Hygroton] 12.5 mg PO QAM 07/15/15 03/23/19 History Losartan [Cozaar] 50 mg PO QAM 07/15/15 03/23/19 History Pravastatin Sodium [Pravachol] 80 mg PO HS 07/15/15 03/23/19 History Pregabalin [Lyrica] 150 mg PO BID 07/15/15 03/23/19 History metFORMIN HCL [Glucophage] 500 mg PO BID 07/15/15 03/23/19 History Albuterol Nebulized [Ventolin 5 mg INHALATION RT-Q4H 05/18/17 03/23/19 History Nebulized] Ketoconazole 2% Shampoo [Nizoral] 1 applic TOPICAL Q3D 05/18/17 03/23/19 History Propranolol HCl [Propranolol HCl 60 mg PO HS 05/18/17 03/23/19 History ER] Tiotropium [place] [Spiriva] 1 cap INHALATION RT-DAILY 05/18/17 03/23/19 History Albuterol Sulfate [Proventil Hfa] 1 - 2 puff INHALATION RT-Q4H 03/23/19 03/23/19 History Cholecalciferol [Vitamin D3 (25 1,000 unit PO DAILY 03/23/19 03/23/19 History Mcg = 1000 Iu)] Cyanocobalamin (Vitamin B-12) 1,000 mcg PO DAILY 03/23/19 03/23/19 History [Vitamin B-12] Mometasone Furoate [Asmanex] 1 puff INHALATION RT-BID 03/23/19 03/23/19 History Pyridoxine [Vitamin B-6] 50 mg PO DAILY 03/23/19 03/23/19 History Tadalafil [Cialis] 5 mg PO DAILY 03/23/19 03/23/19 History Terazosin HCl 10 mg PO DAILY 03/23/19 03/23/19 History Triamcinolone 0.1% Cream [Kenalog 1 applicatio TOPICAL BID PRN 03/23/19 03/23/19 History 0.1% Cream] Allergies Allergy/AdvReac Type Severity Reaction Status Date / Time ciprofloxacin [From Cipro] Allergy Rash/Hives Verified 03/23/19 09:28 ciprofloxacin HCl Allergy Rash/Hives Verified 03/23/19 09:28 [From Cipro] Penicillins Allergy Rash/Hives Verified 03/23/19 09:28 Physical Exam Vitals: Vital Signs Temp Pulse Pulse Resp BP BP Pulse Ox 03/23/19 14:43 97.9 F 84 20 136/73 93 L 03/23/19 13:00 81 16 128/81 03/23/19 12:05 72 03/23/19 12:00 75 15 127/66 97 03/23/19 11:52 72 03/23/19 11:17 72 03/23/19 11:04 74 03/23/19 11:00 71 18 100/48 97 03/23/19 10:00 113/74 03/23/19 09:37 73 16 113/74 93 L 03/23/19 09:33 76 03/23/19 09:20 73 03/23/19 09:00 69 20 113/69 98 03/23/19 08:49 19 03/23/19 08:37 18 03/23/19 08:35 98.2 F 77 28 H 119/61 87 L Intake and Output 03/23/19 03/23/19 03/23/19 06:59 14:59 22:59 Other: Weight 75.75 kg General: [non toxic], [no distress], [appears at stated age] Derm: [warm], [dry] Head: [atraumatic], [normocephalic], [symmetric] Eyes: [EOMI], [no lid lag], [anicteric sclera] Mouth: [no lip lesion], [mucus membranes moist] Cardiovascular: [S1S2 reg], [no murmur], [positive DP pulse bilateral] Lungs: [decreased breath sounds bilateral], [end expiratory wheezing] , [no accessory muscle use] Abdominal: [soft], [ nontender to palpation], [no guarding], [no appreciable organomegaly] Ext: [no gross muscle atrophy], [no edema], [no contractures] Neuro: [no focal neuro deficits] Psych: [Alert], [oriented], [appropriate affect] Results CBC & Chem 7: 03/23/19 08:57 03/23/19 08:57 Labs: Abnormal Lab Results - Last 24 Hours (Table) 03/23/19 03/23/19 Range/Units 08:57 08:57 MCHC 30.5 L (31.0-37.0) g/dL RDW 16.5 H (11.5-15.5) % Carbon Dioxide 37 H (22-30) mmol/L Glucose 113 H (74-99) mg/dL Creatine Kinase 46 L (55-170) U/L Thrombosis Risk Factor Assmnt - Choose All That Apply Any of the Below Risk Factors Present?: Yes Each Factor Represents 1 point: Abnormal pulmonary function (COPD), Serious lung disease incl. pneumonia (< 1month) Other Risk Factors: Yes Each Risk Factor Represents 3 Points: Age 75 years or older Other congenital or acquired thrombophilia - If yes, enter type in comment: No Thrombosis Risk Factor Assessment Total Risk Factor Score: 5 Thrombosis Risk Factor Assessment Level: High Risk Assessment and Plan Assessment: Assessment and Plan COPD exacerbation likely secondary to viral URI, on 3 L home O2 Viral URI Diabetes mellitus Hypertension Hyperlipidemia Patient afebrile with no leukocytosis. Chest x-ray showing chronic findings. Plan: Continue Pulmicort. Continue formoterol. DuoNeb 4 times a day scheduled and as needed for shortness of breath and wheezing. Continue Solu-Medrol IV. O2 per NC to maintain O2 saturation greater than 92%. Follow pulmonology consultation. Chest x-ray negative for pneumonia. As per patient's symptoms. Plan: Add Mucinex. [id number] glucose 113. Plan: Continue metformin. Insulin sliding scale. Hypoglycemic precautions. Regular Accu-Cheks. BP 136/73. Plan: Continue propranolol, chlorthalidone, losartan. Monitor vitals, adjust medications as necessary. Plan: Continue Pravastatin. DVT prophylaxis: [heparin] Discussed with: [patient and family] Anticipated discharge: [1-2 days] Anticipated discharge place: [home] A total of [30] minutes was spent on the care of this complex patient more than 50% of the time was spent in counseling and care coordination. Patient states that he would like to be NO CODE (to intubations or chest compressions). He names his daughter the decision maker indicates that he can make decisions for himself.
[2019-03-23] MEDS: methylPREDNISolone SOD SUCCI 125 MG/2 ML VIAL IV SCH ×2 (16:10→23:46)
[2019-03-23 17:02] LABS: Glucose,Whole Blood 189 mg/dL (75-99)
[2019-03-23] MEDS: INSULIN ASPART (NovoLOG) 100 UNIT/ML VIAL SQ SCH ×2 (17:57→20:38)
[2019-03-23] MEDS: BUDESONIDE 1 MG/2 ML NEBU INHALATION SCH (19:27)
[2019-03-23] MEDS: FORMOTEROL FUMARATE 20 MCG/2 ML NEBU INHALATION SCH (19:27)
[2019-03-23] MEDS ORDERED: FLUTICASONE 110 MCG INHALER INHALATION SCH (20:00)
[2019-03-23 20:15] LABS: Glucose,Whole Blood 191 mg/dL (75-99)
[2019-03-23] MEDS: PREGABALIN 75 MG CAP PO SCH (20:38)
[2019-03-23] MEDS: HEPARIN SODIUM,PORCINE 5,000 UNIT/ML 1 ML VIAL SQ SCH (20:38)
[2019-03-23] MEDS: guaiFENesin 600 MG TABLET.ER PO SCH (20:39)
[2019-03-23] MEDS: metFORMIN 500 MG TAB PO SCH (20:39)
[2019-03-23] MEDS ORDERED: PROPRANOLOL LA 60 MG CAP.SA.24H PO SCH (21:00)
[2019-03-23] MEDS ORDERED: PRAVASTATIN SODIUM 80 MG TAB PO SCH (21:00)
[2019-03-24 02:15] LABS: Glucose,Whole Blood 131 mg/dL (75-99)
[2019-03-24] MEDS: IPRATROPIUM-ALBUTEROL 3 ML NEB INHALATION SCH ×4 (03:24→15:01)
[2019-03-24] MEDS: methylPREDNISolone SOD SUCCI 125 MG/2 ML VIAL IV SCH ×2 (06:00→12:02)
[2019-03-24 07:09] LABS: Glucose,Whole Blood 143 mg/dL (75-99)
[2019-03-24] MEDS: BUDESONIDE 1 MG/2 ML NEBU INHALATION SCH (07:09)
[2019-03-24] MEDS: FORMOTEROL FUMARATE 20 MCG/2 ML NEBU INHALATION SCH (07:09)
[2019-03-24] MEDS: HEPARIN SODIUM,PORCINE 5,000 UNIT/ML 1 ML VIAL SQ SCH (07:45)
[2019-03-24] MEDS: INSULIN ASPART (NovoLOG) 100 UNIT/ML VIAL SQ SCH ×2 (07:45→11:54)
[2019-03-24] MEDS: guaiFENesin 600 MG TABLET.ER PO SCH (07:46)
[2019-03-24] MEDS: metFORMIN 500 MG TAB PO SCH (07:47)
[2019-03-24] MEDS: PREGABALIN 75 MG CAP PO SCH (07:48)
[2019-03-24] MEDS ORDERED: IPRATROPIUM 0.5 MG/2.5 ML NEBU INHALATION SCH (08:00)
[2019-03-24] MEDS ORDERED: DOXAZOSIN 4 MG TAB PO SCH (09:00)
[2019-03-24] MEDS ORDERED: CHOLECALCIFEROL 1,000 UNIT TAB PO SCH (09:00)
[2019-03-24] MEDS ORDERED: KETOCONAZOLE 2% SHAMPOO 1 APPLIC/ML TOPICAL SCH (09:00)
[2019-03-24] MEDS ORDERED: PYRIDOXINE 50 MG TAB PO SCH (09:00)
[2019-03-24] MEDS ORDERED: CYANOCOBALAMIN 500 MCG TAB PO SCH (09:00)
[2019-03-24] MEDS ORDERED: CHLORTHALIDONE 25 MG TAB PO SCH (09:00)
[2019-03-24] MEDS ORDERED: NON-FORMULARY DRUG (Tadalafil [Cialis] 5 MG) PO SCH (09:00)
[2019-03-24] MEDS ORDERED: LOSARTAN 50 MG TAB PO SCH (09:00)
--- NOTE | 2019-03-24 11:07 | CONS ---
CONSULTATION PULMONARY/CRITICAL CARE CONSULTATION: This is a 78-year-old gentleman with a known history of COPD. I see him in the office for his COPD. He apparently presented to the emergency room with a couple days worth of increasing shortness of breath. He states that he is coughing a bit. Not producing much phlegm. There is no fever or chills. No chest pain or chest discomfort. He was wheezing as well. Here in the room today, the patient looks relatively stable. He is sitting there with oxygen in place. His back is to us initially when we walked into the room. He does not have any conversational dyspnea, audible wheezing or use of accessory muscles. He was hoping to go home today if possible. I told him that will be up to his primary care provider. MEDICATIONS: Reviewed. They include [place], which is chlorthalidone, Cozaar, Pravachol, Lyrica, Glucophage, Ventolin, updrafts, Nizoral, propranolol, Spiriva, albuterol inhaler, vitamin D3, B12, Asmanex, vitamin B6, Cialis, thoracis and Kenalog cream. ALLERGIES: Include PENICILLIN and CIPROFLOXACIN. PAST MEDICAL HISTORY: Includes COPD, diabetes, hyperlipidemia, hypertension, and dermatitis. He also has a history of cataracts. He also suffers from diabetic neuropathy involving his feet. SURGICAL HISTORY: Includes a hernia repair. He has had some other minor procedures as well. SOCIAL HISTORY: Positive for previous heavy tobacco use. Does not smoke currently. Denies alcohol or illicit drug use. FAMILY HISTORY: Positive for colon cancer. REVIEW OF SYSTEMS: CONSTITUTIONAL: Negative. NEUROLOGIC: Negative. HEENT: Negative. CARDIOVASCULAR: Negative. PULMONARY: Shortness of breath, chest tightness, wheezing, cough, minimal phlegm production which is mostly clear or white. GI: Negative. : Negative. RHEUMATOLOGIC: Negative. IMMUNOLOGIC: Negative. ENDOCRINOLOGIC: Negative. DERMATOLOGIC: Negative. Current vital signs are reviewed. Temperature is 98.5, heart rate 64, respiratory rate 20, blood pressure 108/59, mean 75 and 3 L saturation 97%. He appears in no acute distress. HEENT: Examination is grossly unremarkable. NECK: Supple. Full range of motion. No adenopathy or thyromegaly. Neck veins are flat. CARDIOVASCULAR: Examination reveals regular rhythm and rate. Heart rate 80. S1, S2 normal. No S3, S4, or murmur. LUNGS: Reveal diminished breath sounds throughout. There is a few scattered mild expiratory wheezes. No rhonchi or crackles. Breath sounds are equal bilaterally. Slight prolongation is noted. ABDOMEN: Soft. Bowel sounds are heard. EXTREMITIES: Intact. No cyanosis, clubbing, or edema. SKIN: Without rash. NEUROLOGIC: Examination is brief but nonfocal. LABORATORY STUDIES: White count 8.9, hemoglobin 14.6, hematocrit 47.7, platelet count normal. PT, INR PTT all normal. Sodium 141, potassium 4.4, chloride 98, CO2 of 37, anion gap is 6, BUN 19, creatinine 0.83. N terminal proBNP is 356. Troponin was negative. The rest of the comprehensive metabolic profile looks good. Microbiology is negative or pending. Chest x-ray shows no acute cardiopulmonary disease. Medications are reviewed. From the pulmonary standpoint, he is on Pulmicort and formoterol twice a day, DuoNeb q.i.d. and p.r.n. He also is getting Solu-Medrol 60 mg q.6. ASSESSMENT: 1. Chronic obstructive pulmonary disease exacerbation, possibly complicated by a mild infection. 2. Previous history of heavy tobacco use. 3. History of hypertension. 4. History of hyperlipidemia. 5. History of cataracts. 6. History of diabetes mellitus with diabetic neuropathy. 7. History of benign prostatic hypertrophy. 8. History of dermatitis. PLAN: The patient is on appropriate medications. The patient could likely be discharged home today. The patient should go home on some prednisone with a burst and taper. I would give the patient a short course of antibiotics. The patient should follow up with me in the office next week. Additional recommendations and suggestions are forthcoming. MMODL / IJN: [id number] /
[2019-03-24 11:32] LABS: Glucose,Whole Blood 123 mg/dL (75-99)
[2019-03-24 13:44] VITALS: BP 131/63; RESP 16; TEMP 98.1
[2019-03-24 15:03] VITALS: PULSE 76
--- NOTE | 2019-03-24 15:23 | P.DS ---
Providers Date of admission: 03/23/19 12:05 Expected date of discharge: 03/24/19 Attending physician: Robles Saha MD Consults: 03/23/19 12:05 Consult Physician Routine Consulting Provider: Morris Mackey Consult Reason/Comments: COPD Exacerbation Do you want consulting provider notified?: Yes Primary care physician: [facility] Course: 78-year-old male with PMH of COPD on 3 L home O2, diabetes mellitus, hypertension and hyperlipidemia presents the ED for shortness of breath and wheezing. Patient states that he was at the Pulmonology clinic to see Dr. Mackey today. he did not have an appointment and was not unable to be seen, was told to go to the hospital. Patient reports shortness of breath and wheezing that has been getting worse over the past month. He also complains of cough that is productive of white sputum along with rhinorrhea. Patient also complains of a bitemporal headache that started while in the ED. He denies any lower extremity edema, nausea, vomiting, fever, chest pain, palpitations, changes in urination or bowel habits. He denies any dizziness, numbness/weakness/tingling of the extremities. In the ED, CBC was unremarkable. Coagulation panel was negative. CMP showed a bicarbonate of 37 and glucose of 113. Troponin was less than 0.012, EKG showing sinus rhythm with PAC. Stable findings on chest x-ray. Patient is admitted for COPD exacerbation, pulmonology on consult. With regard to his COPD exacerbation, patient was afebrile with no leukocytosis. Chest x-ray showed chronic findings. He was continued on Pulmicort, formoterol. He was given DuoNeb 4 times a day scheduled and as needed for shortness of breath and wheezing. Patient was initially started on Solu-Medrol and transitioned to prednisone on discharge. Mucinex was added for symptoms of viral URI. Otherwise, his home medications were resumed for diabetes, hypertension and hyperlipidemia. Pulmonology was consulted and cleared the patient for discharge. Patient was seen and examined. No acute events overnight. Patient reports breathing back to baseline. He denies any chest pain, shortness breath or palpitations. No nausea or vomiting. No fever or chills. Looking for to going home. General: [non toxic], [no distress], [appears at stated age] Derm: [warm], [dry] Head: [atraumatic], [normocephalic], [symmetric] Eyes: [EOMI], [no lid lag], [anicteric sclera] Mouth: [no lip lesion], [mucus membranes moist] Cardiovascular: [S1S2 reg], [no murmur], [positive DP pulse bilateral] Lungs: [decreased breath sounds bilateral] , [no accessory muscle use] Abdominal: [soft], [ nontender to palpation], [no guarding], [no appreciable organomegaly] Ext: [no gross muscle atrophy], [no edema], [no contractures] Neuro: [no focal neuro deficits] Psych: [Alert], [oriented], [appropriate affect] Assessment and Plan COPD exacerbation likely secondary to viral URI, on 3 L home O2 Viral URI Diabetes mellitus Hypertension Hyperlipidemia Patient afebrile with no leukocytosis. Chest x-ray showing chronic findings. Plan: Continue Pulmicort. Continue formoterol. DuoNeb 4 times a day scheduled and as needed for shortness of breath and wheezing. Transitioned from Solu- Medrol to prednisone. O2 per NC to maintain O2 saturation greater than 92%. Follow pulmonology consultation. Chest x-ray negative for pneumonia. As per patient's symptoms. Plan: Add Mucinex. Start 3 day course of azithromycin. [id number] glucose 123. Plan: Continue metformin. Insulin sliding scale. Hypoglycemic precautions. Regular Accu-Cheks. BP 131/63. Plan: Continue propranolol, chlorthalidone, losartan. Monitor vitals, adjust medications as necessary. Plan: Continue Pravastatin. Patient cleared by pulmonology. Feeling back at baseline. DC today. Pertinent Studies: Chest x-ray Patient Condition at Discharge: Stable Plan - Discharge Summary Discharge Rx Participant: Yes New Discharge Prescriptions: New predniSONE See Taper PO DIRECTED #30 tab Azithromycin [Zithromax Tri-Yaya] 500 mg PO DAILY 3 Days #3 tab Continue metFORMIN HCL [Glucophage] 500 mg PO BID Pregabalin [Lyrica] 150 mg PO BID Pravastatin Sodium [Pravachol] 80 mg PO HS Losartan [Cozaar] 50 mg PO QAM Chlorthalidone [Hygroton] 12.5 mg PO QAM Albuterol Nebulized [Ventolin Nebulized] 5 mg INHALATION RT-Q4H Tiotropium [place] [Spiriva] 1 cap INHALATION RT-DAILY Propranolol HCl [Propranolol HCl ER] 60 mg PO HS Ketoconazole 2% Shampoo [Nizoral] 1 applic TOPICAL Q3D Albuterol Sulfate [Proventil Hfa] 1 - 2 puff INHALATION RT-Q4H Cholecalciferol [Vitamin D3 (25 Mcg = 1000 Iu)] 1,000 unit PO DAILY Cyanocobalamin (Vitamin B-12) [Vitamin B-12] 1,000 mcg PO DAILY Mometasone Furoate [Asmanex] 1 puff INHALATION RT-BID Pyridoxine [Vitamin B-6] 50 mg PO DAILY Tadalafil [Cialis] 5 mg PO DAILY Terazosin HCl 10 mg PO DAILY Triamcinolone 0.1% Cream [Kenalog 0.1% Cream] 1 applicatio TOPICAL BID PRN PRN Reason: Rash Discharge Medication List Chlorthalidone [Hygroton] 12.5 mg PO QAM 07/15/15 [History] Losartan [Cozaar] 50 mg PO QAM 07/15/15 [History] Pravastatin Sodium [Pravachol] 80 mg PO HS 07/15/15 [History] Pregabalin [Lyrica] 150 mg PO BID 07/15/15 [History] metFORMIN HCL [Glucophage] 500 mg PO BID 07/15/15 [History] Albuterol Nebulized [Ventolin Nebulized] 5 mg INHALATION RT-Q4H 05/18/17 [History] Ketoconazole 2% Shampoo [Nizoral] 1 applic TOPICAL Q3D 05/18/17 [History] Propranolol HCl [Propranolol HCl ER] 60 mg PO HS 05/18/17 [History] Tiotropium [place] [Spiriva] 1 cap INHALATION RT-DAILY 05/18/17 [History] Albuterol Sulfate [Proventil Hfa] 1 - 2 puff INHALATION RT-Q4H 03/23/19 [History] Cholecalciferol [Vitamin D3 (25 Mcg = 1000 Iu)] 1,000 unit PO DAILY 03/23/19 [History] Cyanocobalamin (Vitamin B-12) [Vitamin B-12] 1,000 mcg PO DAILY 03/23/19 [History] Mometasone Furoate [Asmanex] 1 puff INHALATION RT-BID 03/23/19 [History] Pyridoxine [Vitamin B-6] 50 mg PO DAILY 03/23/19 [History] Tadalafil [Cialis] 5 mg PO DAILY 03/23/19 [History] Terazosin HCl 10 mg PO DAILY 03/23/19 [History] Triamcinolone 0.1% Cream [Kenalog 0.1% Cream] 1 applicatio TOPICAL BID PRN 03/23/19 [History] Azithromycin [Zithromax Tri-Yaya] 500 mg PO DAILY 3 Days #3 tab 03/24/19 [Rx] predniSONE See Taper PO DIRECTED #30 tab 03/24/19 [Rx] Follow up Appointment(s)/Referral(s): Morris Mackey DO [Doctor of Osteopathic Medicine] - 1 Week Sahil Simms MD [Primary Care Provider] - 1-2 days Patient Instructions/Handouts: COPD (Chronic Obstructive Pulmonary Disease) (DC) Activity/Diet/Wound Care/Special Instructions: Diet: Cardiac, diabetic Follow-up with PCP within 1-2 days of discharge. Follow-up with pulmonology with the pointing given to you. Take all medications as advised. Discharge Disposition: HOME SELF-CARE
== END 2019-03-24 16:12 | disposition home or self-care (01) | DRG 191 ==
LOC: EC 08:33 → 4MS4W 12:05
PROVIDERS: ADMIT Family Medicine; ATTEND Family Medicine
DX: J44.1 Chronic obstructive pulmonary disease with (acute) exacerbation (principal); J96.11 Chronic respiratory failure with hypoxia; J06.9 Acute upper respiratory infection, unspecified; E11.40 Type 2 diabetes mellitus with diabetic neuropathy, unspecified; E78.5 Hyperlipidemia, unspecified; H91.90 Unspecified hearing loss, unspecified ear; I10 Essential (primary) hypertension; K21.9 Gastro-esophageal reflux disease without esophagitis; N40.0 Benign prostatic hyperplasia without lower urinary tract symptoms; Z79.84 Long term (current) use of oral hypoglycemic drugs; Z79.899 Other long term (current) drug therapy; Z80.0 Family history of malignant neoplasm of digestive organs; Z87.891 Personal history of nicotine dependence; Z99.81 Dependence on supplemental oxygen; Z87.01 Personal history of pneumonia (recurrent); L30.9 Dermatitis, unspecified; Z87.11 Personal history of peptic ulcer disease; Z86.010 Personal history of colon polyps; R51 Headache; Z88.1 Allergy status to other antibiotic agents; Z88.0 Allergy status to penicillin; K44.9 Diaphragmatic hernia without obstruction or gangrene; Z98.42 Cataract extraction status, left eye; Z98.41 Cataract extraction status, right eye
CPT/HCPCS: 36415; 71046; 80053; 82550; 83735; 83880; 84484; 85025; 85610; 85730; 93005; 94640

== ENCOUNTER 2019-08-13 10:48 | Observation (INO) | payer MEDICARE, BC ==
[2019-08-13] MEDS ORDERED: IPRATROPIUM-ALBUTEROL 3 ML NEB INHALATION STA (11:01)
[2019-08-13 11:40] LABS: Basophils # (A) 0.1 k/uL (0-0.2); Basophils % (A) 1 %; Eosinophils # (A) 0.2 k/uL (0-0.7); Eosinophils % (A) 2 %; HCT 46.5 % (39.0-53.0); HGB 14.5 gm/dL (13.0-17.5); Lymphocytes % (A) 13 %; MCH 27.5 pg (25.0-35.0); MCHC 31.1 g/dL (31.0-37.0); MCV 88.3 fL (80.0-100.0); Monocytes # (A) 0.5 k/uL (0-1.0); Monocytes % (A) 6 %; Neutrophils # (A) 5.9 k/uL (1.3-7.7); Neutrophils % (A) 75 %; Platelet Count 187 k/uL (150-450); RBC 5.27 m/uL (4.30-5.90); WBC 7.8 k/uL (3.8-10.6)
--- NOTE | 2019-08-13 11:43 | XR ---
EXAMINATION TYPE: XR chest 2V DATE OF EXAM: 08/13/2019 COMPARISON: 03/23/2019 HISTORY: Shortness of breath with history of COPD. TECHNIQUE: Frontal and lateral views of the chest are obtained. FINDINGS: There is no focal air space opacity, pleural effusion, or pneumothorax seen. New linear ri ght basilar platelike atelectasis is horizontally oriented. Pulmonary hyperinflation with flattening of the diaphragms is indicative of underlying COPD. The cardiac silhouette size is within normal limi ts. The osseous structures are intact. Small anterior osteophytes are seen within the thoracic spin e. IMPRESSION: New right basilar linear atelectasis and underlying COPD. No focal consolidation to sugg est pneumonia.
[2019-08-13 11:48] LABS: INR 0.9 (<1.2); Partial Thromboplastin Time 25.8 sec (22.0-30.0); Prothrombin Time 9.9 sec (9.0-12.0)
[2019-08-13 11:53] LABS: Albumin 4.2 g/dL (3.5-5.0); Calcium 8.9 mg/dL (8.4-10.2); Potassium 4.8 mmol/L (3.5-5.1); Total Bilirubin 0.8 mg/dL (0.2-1.3); Total Protein 6.8 g/dL (6.3-8.2)
--- NOTE | 2019-08-13 12:13 | ED ---
SOB HPI - General Source: patient, EMS, RN notes reviewed Mode of arrival: EMS Limitations: no limitations <Joel Jackson - Last Filed: 08/13/19 12:19> <Lexi Jeter - Last Filed: 08/18/19 12:23> - General Chief Complaint: Shortness of Breath Stated Complaint: KELLY Time Seen by Provider: 08/13/19 10:51 - History of Present Illness Initial Comments: 78-year-old male presents emergency Department chief complaint of dyspnea. Patient states is progressively worsening symptoms last week and 2:30 weeks. Patient states that he could barely get out of bed and do his daily activities is morning because of so short of breath. Patient states that he can only take a few steps at a time. Patient states that he had difficulty calling family members as he cannot complete a sentence. Patient was given treatments at home, by EMS and was given prednisone by EMS. Patient states that he had minimal relief. No history of CHF. Patient states he sees Dr. Mackey. Patient denies chest pain, fever, chills (Joel Jackson) - Related Data Home Medications Medication Instructions Recorded Confirmed Chlorthalidone [Hygroton] 12.5 mg PO QAM 07/15/15 08/13/19 Losartan [Cozaar] 50 mg PO QAM 07/15/15 08/13/19 Pravastatin Sodium [Pravachol] 80 mg PO HS 07/15/15 08/13/19 Pregabalin [Lyrica] 150 mg PO BID 07/15/15 08/13/19 metFORMIN HCL [Glucophage] 500 mg PO BID 07/15/15 08/13/19 Albuterol Nebulized [Ventolin 5 mg INHALATION RT-Q4H 05/18/17 08/13/19 Nebulized] Ketoconazole 2% Shampoo [Nizoral] 1 applic TOPICAL Q3D 05/18/17 08/13/19 Propranolol HCl [Propranolol HCl 60 mg PO HS 05/18/17 08/13/19 ER] Tiotropium [place]ek [Spiriva] 1 cap INHALATION RT-DAILY 05/18/17 08/13/19 Albuterol Sulfate [Proventil Hfa] 1 - 2 puff INHALATION RT-Q4H PRN 03/23/19 08/13/19 Cholecalciferol [Vitamin D3 (25 1,000 unit PO DAILY 03/23/19 08/13/19 Mcg = 1000 Iu)] Cyanocobalamin (Vitamin B-12) 1,000 mcg PO DAILY 03/23/19 08/13/19 [Vitamin B-12] Mometasone Furoate [Asmanex] 1 puff INHALATION RT-BID 03/23/19 08/13/19 Pyridoxine [Vitamin B-6] 50 mg PO DAILY 03/23/19 08/13/19 Tadalafil [Cialis] 5 mg PO DAILY 03/23/19 08/13/19 Terazosin HCl 10 mg PO DAILY 03/23/19 08/13/19 Triamcinolone 0.1% Cream [Kenalog 1 applicatio TOPICAL BID PRN 03/23/19 08/13/19 0.1% Cream] Previous Rx's Medication Instructions Recorded Azithromycin [Zithromax] 500 mg PO DAILY #3 tab 08/15/19 predniSONE 10 mg PO DAILY #30 tab 08/15/19 Allergies Allergy/AdvReac Type Severity Reaction Status Date / Time ciprofloxacin [From Cipro] Allergy Rash/Hives Verified 08/13/19 11:39 ciprofloxacin HCl Allergy Rash/Hives Verified 08/13/19 11:39 [From Cipro] Penicillins Allergy Rash/Hives Verified 08/13/19 11:39 Review of Systems ROS Other: All systems not noted in ROS Statement are negative. <Joel Jackson - Last Filed: 08/13/19 12:19> ROS Other: All systems not noted in ROS Statement are negative. <Lexi Jeter - Last Filed: 08/18/19 12:23> ROS Statement: Those systems with pertinent positive or pertinent negative responses have been documented in the HPI. Past Medical History Past Medical History: COPD, Diabetes Mellitus, Eye Disorder, GERD/Reflux, GI Bleed, Hearing Disorder / Deafness, Hyperlipidemia, Hypertension, Pneumonia, Prostate Disorder, Respiratory Disorder, Skin Disorder Additional Past Medical History / Comment(s): Chronic hypoxic respiratory failure, home oxygen at 3L/NC ATC, NIDDM type II, neuropathy bilateral feet, BPH, occasional dermatitis since [place], bilateral tinnitis, gastric ulcer, lower GI bleed, small hiatal hernia, past admission for colitis/sepsis-pt does not recall this. History of Any Multi-Drug Resistant Organisms: None Reported Past Surgical History: Hernia Repair Additional Past Surgical History / Comment(s): Incisional hernias x2, bilateral cataract removals, colonoscopy with benign polyp, vasectomy Past Anesthesia/Blood Transfusion Reactions: No Reported Reaction Past Psychological History: No Psychological Hx Reported Smoking Status: Former smoker Past Alcohol Use History: None Reported Past Drug Use History: None Reported - Past Family History Mother Family Medical History: No Reported History Additional Family Medical History / Comment(s): Mother was healthy. Father Family Medical History: Cancer Additional Family Medical History / Comment(s): COLON Sister(s) Family Medical History: Cancer Additional Family Medical History / Comment(s): REPRODUCTIVE <Joel Jackson M - Last Filed: 08/13/19 12:19> General Exam Limitations: no limitations General appearance: alert, in no apparent distress Head exam: Present: atraumatic, normocephalic, normal inspection Eye exam: Present: normal appearance, PERRL, EOMI. Absent: scleral icterus, conjunctival injection, periorbital swelling ENT exam: Present: normal exam, normal oropharynx, mucous membranes moist Neck exam: Present: normal inspection, full ROM. Absent: tenderness, meningism us, lymphadenopathy Respiratory exam: Present: respiratory distress (Mild), wheezes. Absent: normal lung sounds bilaterally, rales, rhonchi, stridor Cardiovascular Exam: Present: regular rate, normal rhythm, normal heart sounds. Absent: systolic murmur, diastolic murmur, rubs, gallop, clicks <Joel Jackson M - Last Filed: 08/13/19 12:19> Course Vital Signs 08/13/19 08/13/19 08/13/19 10:49 10:54 11:35 Temperature 98.1 F Pulse Rate 67 63 Respiratory 20 22 Rate Blood Pressure 113/96 O2 Sat by Pulse 95 Oximetry 08/13/19 08/13/19 08/13/19 11:44 12:40 13:34 Temperature 98.3 F Pulse Rate 62 64 67 Respiratory 18 18 Rate Blood Pressure 108/63 128/76 O2 Sat by Pulse 97 96 Oximetry Medical Decision Making - Lab Data Result diagrams: 08/13/19 11:22 08/13/19 11:22 <Joel Jackson M - Last Filed: 08/13/19 12:19> - Lab Data Result diagrams: 08/13/19 11:22 08/13/19 11:22 <Lexi Jeter - Last Filed: 08/18/19 12:23> - Medical Decision Making 38-year-old male presented for dyspnea. Patient had persistent dyspnea r efactory of treatments. Patient was given prednisone by EMS will continue IV steroids and the hospital be evaluated by his veterinary medical officer Dr. Mackey. Patient will have treatments every 4 hours with when necessary every 2 hours treatments, was started on antibiotics. (Joel Jackson) I was available for consultation in the emergency department. The history and physical exam were done by the midlevel provider. I was consulted for this patients care. I reviewed the case with the midlevel provider and based on their presentation of the patient, I agree with the assessment, medical decision making and plan of care as documented. I evaluated the patient myself and spoke with Dr. Villalobos who accepted his admission. Chart was dictated using [employer] dictation software. Attempts were made to correct any dictation errors however some typographical errors may persist. (Lexi Jeter) - Lab Data Lab Results 08/13/19 08/13/19 08/13/19 Range/Units 11:22 11:22 11:22 WBC 7.8 (3.8-10.6) k/uL RBC 5.27 (4.30-5.90) m/uL Hgb 14.5 (13.0-17.5) gm/dL Hct 46.5 (39.0-53.0) % MCV 88.3 (80.0-100.0) fL MCH 27.5 (25.0-35.0) pg MCHC 31.1 (31.0-37.0) g/dL RDW 15.0 (11.5-15.5) % Plt Count 187 (150-450) k/uL Neutrophils % 75 % Lymphocytes % 13 % Monocytes % 6 % Eosinophils % 2 % Basophils % 1 % Neutrophils # 5.9 (1.3-7.7) k/uL Lymphocytes # 1.0 (1.0-4.8) k/uL Monocytes # 0.5 (0-1.0) k/uL Eosinophils # 0.2 (0-0.7) k/uL Basophils # 0.1 (0-0.2) k/uL PT (9.0-12.0) sec INR (<1.2) APTT (22.0-30.0) sec Sodium 136 L (137-145) mmol/L Potassium 4.8 (3.5-5.1) mmol/L Chloride 95 L (98-107) mmol/L Carbon Dioxide 31 H (22-30) mmol/L Anion Gap 10 mmol/L BUN 14 (9-20) mg/dL Creatinine 1.06 (0.66-1.25) mg/dL Est GFR (CKD-EPI)AfAm 79 (>60 ml/min/1.73 sqM) Est GFR (CKD-EPI)NonAf 68 (>60 ml/min/1.73 sqM) Glucose 95 (74-99) mg/dL Estimated Ave Glu mg/dL Hemoglobin A1c (4.0-6.0) % Calcium 8.9 (8.4-10.2) mg/dL Magnesium 2.0 (1.6-2.3) mg/dL Total Bilirubin 0.8 (0.2-1.3) mg/dL AST 28 (17-59) U/L ALT 24 (21-72) U/L Alkaline Phosphatase 84 (38-126) U/L Troponin I (0.000-0.034) ng/mL NT-Pro-B Natriuret Pep 361 pg/mL Total Protein 6.8 (6.3-8.2) g/dL Albumin 4.2 (3.5-5.0) g/dL 08/13/19 08/13/19 08/13/19 Range/Units 11:22 11:22 11:22 WBC (3.8-10.6) k/uL RBC (4.30-5.90) m/uL Hgb (13.0-17.5) gm/dL Hct (39.0-53.0) % MCV (80.0-100.0) fL MCH (25.0-35.0) pg MCHC (31.0-37.0) g/dL RDW (11.5-15.5) % Plt Count (150-450) k/uL Neutrophils % % Lymphocytes % % Monocytes % % Eosinophils % % Basophils % % Neutrophils # (1.3-7.7) k/uL Lymphocytes # (1.0-4.8) k/uL Monocytes # (0-1.0) k/uL Eosinophils # (0-0.7) k/uL Basophils # (0-0.2) k/uL PT 9.9 (9.0-12.0) sec INR 0.9 (<1.2) APTT 25.8 (22.0-30.0) sec Sodium (137-145) mmol/L Potassium (3.5-5.1) mmol/L Chloride (98-107) mmol/L Carbon Dioxide (22-30) mmol/L Anion Gap mmol/L BUN (9-20) mg/dL Creatinine (0.66-1.25) mg/dL Est GFR (CKD-EPI)AfAm (>60 ml/min/1.73 sqM) Est GFR (CKD-EPI)NonAf (>60 ml/min/1.73 sqM) Glucose (74-99) mg/dL Estimated Ave Glu mg/dL 123 Hemoglobin A1c 5.9 (4.0-6.0) % Calcium (8.4-10.2) mg/dL Magnesium (1.6-2.3) mg/dL Total Bilirubin (0.2-1.3) mg/dL AST (17-59) U/L ALT (21-72) U/L Alkaline Phosphatase (38-126) U/L Troponin I <0.012 (0.000-0.034) ng/mL NT-Pro-B Natriuret Pep pg/mL Total Protein (6.3-8.2) g/dL Albumin (3.5-5.0) g/dL - EKG Data EKG Comments: EKG performed at 10:54 sinus rhythm with PVC, rate of 66 ME 140 QRS 98 QT status QTC 398/417 (Joel Jackson) Disposition <Joel Jackson - Last Filed: 08/13/19 12:19> <Lexi Jeter - Last Filed: 08/18/19 12:23> Clinical Impression: Acute exacerbation of chronic obstructive airways disease Disposition: ADMITTED IP TO THIS HOSP Condition: Stable
[2019-08-13] MEDS ORDERED: ALBUTEROL NEBULIZED 2.5 MG/3 ML INHALATION PRN (12:21)
[2019-08-13] MEDS ORDERED: IPRATROPIUM-ALBUTEROL 3 ML NEB INHALATION PRN (12:21)
[2019-08-13] MEDS ORDERED: cefTRIAXone IN SWFI 1,000 MG/10 ML SYRINGE IVP STA (12:22)
[2019-08-13] MEDS ORDERED: AZITHROMYCIN 500 MG in SODIUM CHLORIDE 0.9% 250 ML IVPB STA (12:58)
[2019-08-13 13:44] VITALS: BMI 26.3
--- NOTE | 2019-08-13 16:07 | P.CNPUL ---
History of Present Illness Consult date: 08/13/19 Reason for consult: COPD Chief complaint: cough wheezing shortness of breath History of present illness: this is a 78-year-old white male with history of severe end-stage COPD, gold stage IV, patient is O2 dependent, not prednisone dependent, normally sees Dr. Mackey in the office for his COPD. Patient is compliant with all his medications, however over the few days, patient has been complaining of increased cough, wheezing, shortness of breath, he can only take a few steps at a time. Patient denies any fever, no chills, no hemoptysis, no chest pain. Denies any nausea vomiting or abdominal pain. Denies any specific trigger factor for his symptoms and not much relieved with his usual bronchodilators. Patient has not smoked in over 25 years. In the ER, patient had a chest x-ray showed no evidence of pneumonia. Patient was admitted, and this consult was initiated. Review of Systems constitutional: Denies any fever chills or weight loss. Denies night sweats. HEENT: Denies any sore throat, no ear ache, no nasal discharge, denies any blurred vision, denies any diplopia. Pulmonary: As noted in HPI. Cardiac: Denies any chest pain, palpitations, denies any syncopal episodes. GI: Denies any nausea vomiting abdominal pain no melena no hematemesis. Genitourinary denies any dysuria frequency urgency or hematuria. Hematologic: Denies any clotting bleeding or bruising Psychiatric: Denies any symptoms of active depression neurologic: denies any headache no blurred vision or dizziness, patient has history of chronic essential tremors. Endocrine denies any heat or cold intolerance. Denies any polyuria polyphagia or polydipsia. Patient is however diabetic. Musculoskeletal denies any deformities, but he does have history of resting tremors. Past Medical History Past Medical History: COPD, Diabetes Mellitus, Eye Disorder, GERD/Reflux, GI Bleed, Hearing Disorder / Deafness, Hyperlipidemia, Hypertension, Pneumonia, Prostate Disorder, Respiratory Disorder, Skin Disorder Additional Past Medical History / Comment(s): Chronic hypoxic respiratory failure, home oxygen at 3L/NC ATC, NIDDM type II, neuropathy bilateral feet, BPH, occasional dermatitis since [place], [place] bilaterally and R ear current infection with ear drops, bilateral tinnitis, patient states has had diarrhea past one week-loose stools not watery, gastric ulcer, lower GI bleed, small hiatal hernia, past admission for colitis/sepsis-pt does not recall this. History of Any Multi-Drug Resistant Organisms: None Reported Past Surgical History: Hernia Repair Additional Past Surgical History / Comment(s): Incisional hernias x2, bilateral cataract removals, colonoscopy with benign polyp, vasectomy Past Anesthesia/Blood Transfusion Reactions: No Reported Reaction Past Psychological History: No Psychological Hx Reported Additional Psychological History / Comment(s): Pt resides alone in an apartment. He has home oxygen and a nebulizer. He uses no assistive devices. He drives. Smoking Status: Former smoker Past Alcohol Use History: None Reported Additional Past Alcohol Use History / Comment(s): Pt started smoking in 4 and quit in 1996 Past Drug Use History: None Reported - Past Family History Mother Family Medical History: No Reported History Additional Family Medical History / Comment(s): Mother was healthy. Father Family Medical History: Cancer Additional Family Medical History / Comment(s): COLON Sister(s) Family Medical History: Cancer Additional Family Medical History / Comment(s): REPRODUCTIVE Medications and Allergies Home Medications Medication Instructions Recorded Confirmed Type Chlorthalidone [Hygroton] 12.5 mg PO QAM 07/15/15 08/13/19 History Losartan [Cozaar] 50 mg PO QAM 07/15/15 08/13/19 History Pravastatin Sodium [Pravachol] 80 mg PO HS 07/15/15 08/13/19 History Pregabalin [Lyrica] 150 mg PO BID 07/15/15 08/13/19 History metFORMIN HCL [Glucophage] 500 mg PO BID 07/15/15 08/13/19 History Albuterol Nebulized [Ventolin 5 mg INHALATION RT-Q4H 05/18/17 08/13/19 History Nebulized] Ketoconazole 2% Shampoo [Nizoral] 1 applic TOPICAL Q3D 05/18/17 08/13/19 History Propranolol HCl [Propranolol HCl 60 mg PO HS 05/18/17 08/13/19 History ER] Tiotropium [place] [Spiriva] 1 cap INHALATION RT-DAILY 05/18/17 08/13/19 History Albuterol Sulfate [Proventil Hfa] 1 - 2 puff INHALATION RT-Q4H PRN 03/23/19 08/13/19 History Cholecalciferol [Vitamin D3 (25 1,000 unit PO DAILY 03/23/19 08/13/19 History Mcg = 1000 Iu)] Cyanocobalamin (Vitamin B-12) 1,000 mcg PO DAILY 03/23/19 08/13/19 History [Vitamin B-12] Mometasone Furoate [Asmanex] 1 puff INHALATION RT-BID 03/23/19 08/13/19 History Pyridoxine [Vitamin B-6] 50 mg PO DAILY 03/23/19 08/13/19 History Tadalafil [Cialis] 5 mg PO DAILY 03/23/19 08/13/19 History Terazosin HCl 10 mg PO DAILY 03/23/19 08/13/19 History Triamcinolone 0.1% Cream [Kenalog 1 applicatio TOPICAL BID PRN 03/23/19 08/13/19 History 0.1% Cream] Allergies Allergy/AdvReac Type Severity Reaction Status Date / Time ciprofloxacin [From Cipro] Allergy Rash/Hives Verified 08/13/19 11:39 ciprofloxacin HCl Allergy Rash/Hives Verified 08/13/19 11:39 [From Cipro] Penicillins Allergy Rash/Hives Verified 08/13/19 11:39 Physical Exam Vitals: Vital Signs Temp Pulse Pulse Resp BP BP Pulse Ox 08/13/19 14:39 98.9 F 74 18 112/68 95 08/13/19 13:34 98.3 F 67 18 128/76 96 08/13/19 12:40 64 18 108/63 97 08/13/19 11:44 62 08/13/19 11:35 63 08/13/19 10:54 22 08/13/19 10:49 98.1 F 67 20 113/96 95 Intake and Output 08/13/19 08/13/19 08/13/19 06:59 14:59 22:59 Other: Weight 78.471 kg Physical Exam revealed a 78-year-old white male in mild respiratory distress, noted to be dyspneic with any activity. Head: Atraumatic, normocephalic. HEENT:[Neck is supple.] [No neck masses.] [No thyromegaly.] [No JVD.] Chest: [diminished breath sounds at the bases, rhonchi and wheezes noted bilaterally. More pronounced on forced expiratory maneuver. Prolonged expiratory phase noted.] Cardiac Exam: [Normal S1 and S2, no S3 gallop, no murmur.] Abdomen: [Soft, nontender, no megaly, no rebound, no guarding, normal bowel sounds.] Extremities: [No clubbing, no edema, no cyanosis.]resting tremors noted. Good pulses bilaterally. Neurological Exam: [No focal neurologic deficit.]resting tremors noted bilaterally in upper extremities more so in the right upper extremity. lymphatics: No lymphadenopathy. Skin: No rashes. Results - Laboratory Findings CBC and BMP: 08/13/19 11:22 08/13/19 11:22 PT/INR, D-dimer PT 9.9 sec (9.0-12.0) 08/13/19 11:22 INR 0.9 (<1.2) 08/13/19 11:22 Abnormal lab findings: Abnormal Labs 08/13/19 11:22 Sodium 136 L Chloride 95 L Carbon Dioxide 31 H - Diagnostic Findings Chest x-ray: image reviewed (COPD findings, no focal infiltrate, right basilar atelectasis is noted.) Assessment and Plan Assessment: impression: 1 acute exacerbation of COPD, patient is known to have gold stage IV COPD. 2 acute purulent tracheobronchitis 3 type 2 diabetes 4 benign essential hypertension 5 diabetic neuropathy 6. Hypercholesterolemia 7 benign essential tremors Recommendation: I fully agree with the present treatment plan,we'll continue patient on Zithromax orally, continue Keppra troponin bromide with albuterol, continue Solu-Medrol, add Pulmicort, and add Brovana. Patient is expected to improve over the next couple of days, we will continue to follow. Time with Patient: Greater than 30
[2019-08-13] MEDS ORDERED: methylPREDNISolone SOD SUCCI 125 MG/2 ML VIAL IV SCH (18:00)
[2019-08-13] MEDS: BUDESONIDE 1 MG/2 ML NEBU INHALATION SCH (20:18)
[2019-08-13] MEDS: FORMOTEROL FUMARATE 20 MCG/2 ML NEBU INHALATION SCH (20:19)
[2019-08-13 20:22] LABS: Glucose,Whole Blood 195 mg/dL (75-99)
[2019-08-13] MEDS: PRAVASTATIN SODIUM 80 MG TAB PO SCH (20:41)
[2019-08-13] MEDS: PREGABALIN 75 MG CAP PO SCH (20:41)
[2019-08-13] MEDS: PROPRANOLOL LA 60 MG CAP.SA.24H PO SCH (20:41)
[2019-08-13] MEDS: INSULIN ASPART (NovoLOG) 100 UNIT/ML VIAL SQ SCH (20:42)
[2019-08-13] MEDS: metFORMIN 500 MG TAB PO SCH (20:44)
--- NOTE | 2019-08-13 21:18 | P.HPIM ---
History of Present Illness H&P Date: 08/13/19 Chief Complaint: Short of breath History of presenting complaint: This is a pleasant [address] Sahil Bolanos. Chronic stable medical conditions include diabetes, hypertension, hyperlipidemia, diabetic peripheral neuropathy, essential tremor, on home oxygen. For about a week patient is getting progressively more and more short of breath, wheezing. Scattered a c ough with white sputum. Also had some chills. Decreased appetite tired and rundown. Occasionally has some loose stools. Finally decided to present to the hospital. Admitted with COPD exacerbation. Pulmonary was consulted. Started on bronchodilators and steroids. Review of systems: GEN.: Tired EYES: None HEENT: None NECK: None RESPIRATORY: As above CARDIOVASCULAR: None GASTROINTESTINAL: None GENITOURINARY: None MUSCULOSKELETAL: Some joint pains LYMPHATICS: None HEMATOLOGICAL: None PSYCHIATRY: Anxious NEUROLOGICAL: None Past medical history: COPD, diabetes, GERD, GI bleed, decreased hearing, hyperlipidemia, hypertension, prostate disorder, home oxygen 3 L, peripheral neuropathy, BPH, decreased hearing in right ear, bilateral tinnitus, Social history: Lives alone. Smoked for about 35 years stopped in 1996 about 20 years ago. Physical examination: VITAL SIGNS: 98.1, 67, 20, 11 3/96, 95% on 4 L GENERAL: 26.3, propped up in bed, short of breath and wheezing. EYES: Pupils equal. Conjunctiva normal. HEENT: External appearance of nose and ears normal, oral cavity grossly normal. NECK: JVD not raised; masses not palpable. HEART: First and second heart sounds are normal; no edema. LUNGS: Respiratory rate increased, diminished breath sounds prolonged expiration and wheezing. ABDOMEN: Soft, nontender, liver spleen not palpable, no masses palpable. PSYCH: Alert and oriented x3; mood and affect normal. NEUROLOGICAL: Cranial nerves grossly intact; no facial asymmetry, power and sensation grossly intact, resting tremor. LYMPHATICS: No lymph nodes palpable in the axilla and neck INVESTIGATIONS, reviewed in the clinical context: White count 7.8 hemoglobin 14.5 platelets 187 potassium 4.8 bun 14 creatinine 1.06 ProBNP 361 troponin I less than 0.012 EKG tracing-sinus rhythm Chest x-ray film personally reviewed by me-no obvious infiltrate, hyperinflation Assessment: -Acute COPD exacerbation in an ex-smoker -Acute tracheal bronchitis likely viral -Diabetes mellitus type 2 on oral hypoglycemic -GERD -Hyperlipidemia -Essential hypertension -BPH -Chronic hypoxic respiratory failure from underlying COPD -Diabetic peripheral neuropathy -BPH -Chronic bilateral tinnitus Plan: -Patient started on bronchodilators every 4 hours, IV Solu-Medrol, inhaled steroids. Home medications resumed. Accu-Cheks closely followed. Lovenox for DVT prophylaxis. Care was discussed with the patient. Questions answered. Consult to pulmonary. Past Medical History Past Medical History: COPD, Diabetes Mellitus, Eye Disorder, GERD/Reflux, GI Bleed, Hearing Disorder / Deafness, Hyperlipidemia, Hypertension, Pneumonia, Prostate Disorder, Respiratory Disorder, Skin Disorder Additional Past Medical History / Comment(s): Chronic hypoxic respiratory failure, home oxygen at 3L/[place] ATC, NIDDM type II, neuropathy bilateral feet, BPH, occasional dermatitis since [place], [place] bilaterally and R ear current infe ction with ear drops, bilateral tinnitis, patient states has had diarrhea past one week-loose stools not watery, gastric ulcer, lower GI bleed, small hiatal hernia, past admission for colitis/sepsis-pt does not recall this. History of Any Multi-Drug Resistant Organisms: None Reported Past Surgical History: Hernia Repair Additional Past Surgical History / Comment(s): Incisional hernias x2, bilateral cataract removals, colonoscopy with benign polyp, vasectomy Past Anesthesia/Blood Transfusion Reactions: No Reported Reaction Past Psychological History: No Psychological Hx Reported Additional Psychological History / Comment(s): Pt resides alone in an apartment. He has home oxygen and a nebulizer. He uses no assistive devices. He drives. Smoking Status: Former smoker Past Alcohol Use History: None Reported Additional Past Alcohol Use History / Comment(s): Pt started smoking in 1961 and quit in 1996 Past Drug Use History: None Reported - Past Family History Mother Family Medical History: No Reported History Additional Family Medical History / Comment(s): Mother was healthy. Father Family Medical History: Cancer Additional Family Medical History / Comment(s): COLON Sister(s) Family Medical History: Cancer Additional Family Medical History / Comment(s): REPRODUCTIVE Medications and Allergies Home Medications Medication Instructions Recorded Confirmed Type Chlorthalidone [Hygroton] 12.5 mg PO QAM 07/15/15 08/13/19 History Losartan [Cozaar] 50 mg PO QAM 07/15/15 08/13/19 History Pravastatin Sodium [Pravachol] 80 mg PO 07/15/15 08/13/19 History Pregabalin [Lyrica] 150 mg PO BID 07/15/15 08/13/19 History metFORMIN HCL [Glucophage] 500 mg PO BID 07/15/15 08/13/19 History Albuterol Nebulized [Ventolin 5 mg INHALATION RT-Q4H 05/18/17 08/13/19 History Nebulized] Ketoconazole 2% Shampoo [Nizoral] 1 applic TOPICAL Q3D 05/18/17 08/13/19 History Propranolol HCl [Propranolol HCl 60 mg PO HS 05/18/17 08/13/19 History ER] Tiotropium [place] [Spiriva] 1 cap INHALATION RT-DAILY 05/18/17 08/13/19 History Albuterol Sulfate [Proventil Hfa] 1 - 2 puff INHALATION RT-Q4H PRN 03/23/19 08/13/19 History Cholecalciferol [Vitamin D3 (25 1,000 unit PO DAILY 03/23/19 08/13/19 History Mcg = 1000 Iu)] Cyanocobalamin (Vitamin B-12) 1,000 mcg PO DAILY 03/23/19 08/13/19 History [Vitamin B-12] Mometasone Furoate [Asmanex] 1 puff INHALATION RT-BID 03/23/19 08/13/19 History Pyridoxine [Vitamin B-6] 50 mg PO DAILY 03/23/19 08/13/19 History Tadalafil [Cialis] 5 mg PO DAILY 03/23/19 08/13/19 History Terazosin HCl 10 mg PO DAILY 03/23/19 08/13/19 History Triamcinolone 0.1% Cream [Kenalog 1 applicatio TOPICAL BID PRN 03/23/19 08/13/19 History 0.1% Cream] Allergies Allergy/AdvReac Type Severity Reaction Status Date / Time ciprofloxacin [From Cipro] Allergy Rash/Hives Verified 08/13/19 11:39 ciprofloxacin HCl Allergy Rash/Hives Verified 08/13/19 11:39 [From Cipro] Penicillins Allergy Rash/Hives Verified 08/13/19 11:39 Physical Exam Vitals: Vital Signs Temp Pulse Pulse Resp BP BP Pulse Ox 08/13/19 19:46 67 08/13/19 19:36 68 08/13/19 14:39 98.9 F 74 18 112/68 95 08/13/19 13:34 98.3 F 67 18 128/76 96 08/13/19 12:40 64 18 108/63 97 08/13/19 11:44 62 08/13/19 11:35 63 08/13/19 10:54 22 08/13/19 10:49 98.1 F 67 20 113/96 95 Intake and Output 08/13/19 08/13/19 08/13/19 06:59 14:59 22:59 Other: Weight 78.471 kg Results CBC & Chem 7: 08/13/19 11:22 08/13/19 11:22 Labs: Abnormal Lab Results - Last 24 Hours (Table) 08/13/19 08/13/19 Range/Units 11:22 20:21 Sodium 136 L (137-145) mmol/L Chloride 95 L (98-107) mmol/L Carbon Dioxide 31 H (22-30) mmol/L POC Glucose (mg/dL) 195 H (75-99) mg/dL Thrombosis Risk Factor Assmnt - Choose All That Apply Any of the Below Risk Factors Present?: Yes Each Factor Represents 1 point: Abnormal pulmonary function (COPD), Obesity (BMI >25), Serious lung disease incl. pneumonia (< 1month) Other Risk Factors: Yes Each Risk Factor Represents 3 Points: Age 75 years or older Other congenital or acquired thrombophilia - If yes, enter type in comment: No Thrombosis Risk Factor Assessment Total Risk Factor Score: 6 Thrombosis Risk Factor Assessment Level: High Risk
[2019-08-13] MEDS: ENOXAPARIN 40 MG/0.4 ML SYRINGE SQ SCH (21:38)
[2019-08-14] MEDS: IPRATROPIUM-ALBUTEROL 3 ML NEB INHALATION SCH ×7 (00:14→23:26)
[2019-08-14 07:08] LABS: Glucose,Whole Blood 144 mg/dL (75-99)
[2019-08-14] MEDS: FORMOTEROL FUMARATE 20 MCG/2 ML NEBU INHALATION SCH ×2 (07:17→20:04)
[2019-08-14] MEDS: BUDESONIDE 1 MG/2 ML NEBU INHALATION SCH ×2 (07:17→20:04)
[2019-08-14] MEDS: INSULIN ASPART (NovoLOG) 100 UNIT/ML VIAL SQ SCH ×4 (08:57→21:02)
[2019-08-14] MEDS: ENOXAPARIN 40 MG/0.4 ML SYRINGE SQ SCH (08:57)
[2019-08-14] MEDS: metFORMIN 500 MG TAB PO SCH ×2 (08:57→17:21)
[2019-08-14] MEDS: methylPREDNISolone SOD SUCCI 40 MG/ML 1 ML VIAL IV SCH ×3 (08:57→17:21)
[2019-08-14] MEDS: CHLORTHALIDONE 25 MG TAB PO SCH (08:58)
[2019-08-14] MEDS: AZITHROMYCIN 500 MG TAB PO SCH (08:58)
[2019-08-14] MEDS: CHOLECALCIFEROL 1,000 UNIT TAB PO SCH (08:59)
[2019-08-14] MEDS: PREGABALIN 75 MG CAP PO SCH ×2 (08:59→21:02)
[2019-08-14] MEDS: CYANOCOBALAMIN 500 MCG TAB PO SCH (08:59)
[2019-08-14] MEDS: DOXAZOSIN 4 MG TAB PO SCH (08:59)
[2019-08-14] MEDS: LOSARTAN 50 MG TAB PO SCH (08:59)
[2019-08-14] MEDS ORDERED: TADALAFIL 5 MG PO SCH (09:00)
[2019-08-14] MEDS: PYRIDOXINE 50 MG TAB PO SCH (09:00)
--- NOTE | 2019-08-14 10:46 | P.PN ---
Subjective Progress Note Date: 08/14/19 Principal diagnosis: Acute exacerbation chronic obstructive pulmonary disease, complicated by purulent tracheobronchitis this is a 78-year-old white male with history of severe end-stage COPD, gold stage IV, patient is O2 dependent, not prednisone dependent, normally sees Dr. Mackey in the office for his COPD. Patient is compliant with all his medications, however over the few days, patient has been complaining of increased cough, wheezing, shortness of breath, he can only take a few steps at a time. Patient denies any fever, no chills, no hemoptysis, no chest pain. Denies any nausea vomiting or abdominal pain. Denies any specific trigger factor for his symptoms and not much relieved with his usual bronchodilators. Patient has not smoked in over 25 years. In the ER, patient had a chest x-ray showed no evidence of pneumonia. Patient was admitted, and this consult was initiated. The patient is seen today 08/14/2019 in follow-up on the regular medical floor. He is currently up ambulating in his room. Awake and alert in no acute distress. Still somewhat dyspneic on exertion. Still bronchospastic and wheezy. Not quite back to his baseline. He is maintaining O2 saturations in the mid 90s on 4 L/m per nasal cannula. He is afebrile. Hemodynamically sta ble. Blood sugar 144. He is continued on DuoNeb inhalations, Pulmicort and Perforomist inhalations, IV Solu-Medrol, empiric antibiotics in the form of azithromycin. Objective - Vital Signs Vital signs: Vital Signs Temp 98.0 F 08/14/19 05:00 Pulse 80 08/14/19 07:39 Resp 24 08/14/19 05:00 BP 116/70 08/14/19 05:00 Pulse Ox 95 08/14/19 05:00 Intake & Output 08/13/19 08/14/19 08/14/19 18:59 06:59 18:59 Intake Total 1070 Balance 1070 Weight 78.471 kg Intake: Oral 1070 Other: # Voids 2 - Exam GENERAL EXAM: Alert, pleasant 78-year-old gentleman, active, comfortable in no apparent distress. On 4 L nasal cannula. HEAD: Normocephalic. EYES: Normal reaction of pupils, equal size. NOSE: Clear with pink turbinates. THROAT: No erythema or exudates. NECK: No masses, no JVD. CHEST: No chest wall deformity. LUNGS: Equal air entry with bilateral wheezing, diminished. CVS: S1 and S2 normal with no audible murmur, regular rhythm. ABDOMEN: No hepatosplenomegaly, normal bowel sounds, no guarding or rigidity. SPINE: No scoliosis or deformity SKIN: No rashes CENTRAL NERVOUS SYSTEM: No focal deficits, tone is normal in all 4 extremities. EXTREMITIES: There is no peripheral edema. No clubbing, no cyanosis. Peripheral pulses are intact. - Labs CBC & Chem 7: 08/13/19 11:22 08/13/19 11:22 Labs: Abnormal Lab Results - Last 24 Hours (Table) 08/13/19 08/13/19 08/14/19 Range/Units 11:22 20:21 07:07 Sodium 136 L (137-145) mmol/L Chloride 95 L (98-107) mmol/L Carbon Dioxide 31 H (22-30) mmol/L POC Glucose (mg/dL) 195 H 144 H (75-99) mg/dL Assessment and Plan Assessment: impression: 1 acute exacerbation of COPD, patient is known to have gold stage IV COPD. 2 acute purulent tracheobronchitis 3 type 2 diabetes 4 benign essential hypertension 5 diabetic neuropathy 6. Hypercholesterolemia 7 benign essential tremors Recommendation: The patient was seen and evaluated by Dr. Coughlin. He is improved today compared to yesterday. Not quite back to his baseline. We'll continue with the current treatment plan. We will increase his activity as tolerated. We'll continue to follow. Possibly home in the a.m. I, the cosigning physician, performed a history & physical examination of the patient. Lungs sounds with bilateral end expiratory wheeze. Maintaining good O2 saturations in the 90s on 4 L/m per nasal cannula. I discussed the assessment and plan of care with my nurse practitioner, Mishel Camacho. I attest to the above note as dictated by her.
[2019-08-14 11:32] LABS: Glucose,Whole Blood 102 mg/dL (75-99)
[2019-08-14 12:06] VITALS: RESP 18
[2019-08-14 15:08] LABS: Hemoglobin A1C 5.9 % (4.0-6.0)
[2019-08-14 17:24] LABS: Glucose,Whole Blood 131 mg/dL (75-99)
[2019-08-14 20:29] LABS: Glucose,Whole Blood 121 mg/dL (75-99)
[2019-08-14] MEDS: PROPRANOLOL LA 60 MG CAP.SA.24H PO SCH (21:01)
[2019-08-14] MEDS: PRAVASTATIN SODIUM 80 MG TAB PO SCH (21:01)
--- NOTE | 2019-08-14 22:21 | P.PN ---
Progress Note - Text Progress Note Date: 08/14/19 History of presenting complaint: This is a pleasant [address] Sahil Bolanos. Chronic stable medical conditions include diabetes, hypertension, hyperlipidemia, diabetic peripheral neuropathy, essential tremor, on home oxygen. For about a week patient is getting progressively more and more short of breath, wheezing. Scattered a cough with white sputum. Also had some chills. Decreased appetite tired and rundown. Occasionally has some loose stools. Finally decided to present to the hospital. Admitted with COPD exacerbation. Pulmonary was consulted. Started on bronchodilators and steroids. Today-feeding with better. Less wheezing. Less cough. Did tolerate her diet. A bit tired Review of systems: Was done for constitutional, cardiovascular, GI, pulmonary. relevant finding as above Active Medications Albuterol Sulfate (Ventolin Nebulized) 2.5 mg INHALATION Q2HR PRN PRN Reason: Bronchospasm Albuterol/Ipratropium (Duoneb 0.5 Mg-3 Mg/3 Ml Soln) 3 ml INHALATION RT-Q4H PRN PRN Reason: Shortness Of Breath Or Wheezing Last Admin: 08/13/19 19:40 Dose: 3 ml Documented by: Albuterol/Ipratropium (Duoneb 0.5 Mg-3 Mg/3 Ml Soln) 3 ml INHALATION RT-Q4H [facility] Last Admin: 08/14/19 20:04 Dose: 3 ml Documented by: Azithromycin (Zithromax) 500 mg PO DAILY [facility] Last Admin: 08/14/19 08:58 Dose: 500 mg Documented by: Budesonide (Pulmicort) 1 mg INHALATION RT-BID [facility] Last Admin: 08/14/19 20:04 Dose: 1 mg Documented by: Chlorthalidone (Hygroton) 12.5 mg PO QAM [facility] Last Admin: 08/14/19 08:58 Dose: 12.5 mg Documented by: Cholecalciferol (Vitamin D3 (25 Mcg = 1000 Iu)) 1,000 unit PO DAILY [facility] Last Admin: 08/14/19 08:59 Dose: 1,000 unit Documented by: Cyanocobalamin (Vitamin B-12) 1,000 mcg PO DAILY [facility] Last Admin: 08/14/19 08:59 Dose: 1,000 mcg Documented by: Doxazosin Mesylate (Cardura) 8 mg PO DAILY [facility] Last Admin: 08/14/19 08:59 Dose: 8 mg Documented by: Enoxaparin Sodium (Lovenox) 40 mg SQ DAILY [facility] Last Admin: 08/14/19 08:57 Dose: 40 mg Documented by: Formoterol Fumarate (Perforomist) 20 mcg INHALATION RT-BID [facility] Last Admin: 08/14/19 20:04 Dose: 20 mcg Documented by: Insulin Aspart (Novolog) 0 unit SQ ACHS [facility]; Protocol Last Admin: 08/14/19 21:02 Dose: Not Given Documented by: Losartan Potassium (Cozaar) 50 mg PO QAM [facility] Last Admin: 08/14/19 08:59 Dose: 50 mg Documented by: Metformin HCl (Glucophage) 500 mg PO BID-W/MEALS [facility] Last Admin: 08/14/19 17:21 Dose: 500 mg Documented by: Methylprednisolone Sodium Succinate (Solu-Medrol) 40 mg IV Q8HR [facility] Last Admin: 08/14/19 17:21 Dose: 40 mg Documented by: Pravastatin Sodium (Pravachol) 80 mg PO HS [facility] Last Admin: 08/14/19 21:01 Dose: 80 mg Documented by: Pregabalin (Lyrica) 150 mg PO BID [facility] Last Admin: 08/14/19 21:02 Dose: 150 mg Documented by: Propranolol HCl (Inderal [place]) 60 mg PO [facility] Last Admin: 08/14/19 21:01 Dose: 60 mg Documented by: Pyridoxine HCl (Vitamin B-6) 50 mg PO DAILY [facility] Last Admin: 08/14/19 09:00 Dose: 50 mg Documented by: Physical examination: VITAL SIGNS: 98.7, 66, 18, 146.87, 95% on 4 L GENERAL: Sitting up in bed, looking better.. EYES: Pupils equal. Conjunctiva normal. HEENT: External appearance of nose and ears normal, oral cavity grossly normal. NECK: JVD not raised; masses not palpable. HEART: First and second heart sounds are normal; no edema. LUNGS: Respiratory rate increased, diminished breath sounds prolonged expiration and less wheezing. ABDOMEN: Soft, nontender, liver spleen not palpable, no masses palpable. PSYCH: Alert and oriented x3; mood and affect normal. INVESTIGATIONS, reviewed in the clinical context: Accu-Cheks noted Admission testing: White count 7.8 hemoglobin 14.5 platelets 187 potassium 4.8 bun 14 creatinine 1.06 ProBNP 361 troponin I less than 0.012 EKG tracing-sinus rhythm Chest x-ray film personally reviewed by me-no obvious infiltrate, hyperinflation Assessment: -Acute COPD exacerbation in an ex-smoker -Acute tracheal bronchitis likely viral -Diabetes mellitus type 2 on oral hypoglycemic -GERD -Hyperlipidemia -Essential hypertension -BPH -Chronic hypoxic respiratory failure from underlying COPD -Diabetic peripheral neuropathy -BPH -Chronic bilateral tinnitus Plan: Continue with bronchodilators tries. Slowly improving. Care was discussed with the patient.
[2019-08-15] MEDS: methylPREDNISolone SOD SUCCI 40 MG/ML 1 ML VIAL IV SCH ×2 (00:08→07:54)
[2019-08-15] MEDS: IPRATROPIUM-ALBUTEROL 3 ML NEB INHALATION SCH ×3 (04:05→13:02)
[2019-08-15 05:07] VITALS: BP 137/76; TEMP 97.4
[2019-08-15 07:06] LABS: Glucose,Whole Blood 121 mg/dL (75-99)
[2019-08-15] MEDS: INSULIN ASPART (NovoLOG) 100 UNIT/ML VIAL SQ SCH ×2 (07:16→11:40)
[2019-08-15] MEDS: CHLORTHALIDONE 25 MG TAB PO SCH (07:52)
[2019-08-15] MEDS: metFORMIN 500 MG TAB PO SCH (07:52)
[2019-08-15] MEDS: ENOXAPARIN 40 MG/0.4 ML SYRINGE SQ SCH (07:53)
[2019-08-15] MEDS: AZITHROMYCIN 500 MG TAB PO SCH (07:53)
[2019-08-15] MEDS: PREGABALIN 75 MG CAP PO SCH (07:53)
[2019-08-15] MEDS: PYRIDOXINE 50 MG TAB PO SCH (07:53)
[2019-08-15] MEDS: DOXAZOSIN 4 MG TAB PO SCH (07:53)
[2019-08-15] MEDS: CHOLECALCIFEROL 1,000 UNIT TAB PO SCH (07:53)
[2019-08-15] MEDS: LOSARTAN 50 MG TAB PO SCH (07:53)
[2019-08-15] MEDS: CYANOCOBALAMIN 500 MCG TAB PO SCH (07:53)
[2019-08-15] MEDS: BUDESONIDE 1 MG/2 ML NEBU INHALATION SCH (09:04)
[2019-08-15] MEDS: FORMOTEROL FUMARATE 20 MCG/2 ML NEBU INHALATION SCH (09:04)
[2019-08-15 09:23] VITALS: PULSE 72
--- NOTE | 2019-08-15 12:30 | P.PN ---
Subjective Progress Note Date: 08/15/19 Principal diagnosis: Acute exacerbation chronic obstructive pulmonary disease, complicated by purulent tracheobronchitis this is a 78-year-old white male with history of severe end-stage COPD, gold stage IV, patient is O2 dependent, not prednisone dependent, normally sees Dr. Mackey in the office for his COPD. Patient is compliant with all his medications, however over the few days, patient has been complaining of increased cough, wheezing, shortness of breath, he can only take a few steps at a time. Patient denies any fever, no chills, no hemoptysis, no chest pain. Denies any nausea vomiting or abdominal pain. Denies any specific trigger factor for his symptoms and not much relieved with his usual bronchodilators. Patient has not smoked in over 25 years. In the ER, patient had a chest x-ray showed no evidence of pneumonia. Patient was admitted, and this consult was initiated. The patient is seen today 08/14/2019 in follow-up on the regular medical floor. He is currently up ambulating in his room. Awake and alert in no acute distress. Still somewhat dyspneic on exertion. Still bronchospastic and wheezy. Not quite back to his baseline. He is maintaining O2 saturations in the mid 90s on 4 L/m per nasal cannula. He is afebrile. Hemodynamically sta ble. Blood sugar 144. He is continued on DuoNeb inhalations, Pulmicort and Perforomist inhalations, IV Solu-Medrol, empiric antibiotics in the form of azithromycin. The patient is seen today 08/15/2019 in follow-up on the regular medical floor. He is currently sitting up in a chair at the bedside. Awake and alert in no acute distress. He is maintaining O2 saturations in the upper 90s on 4 L/m per nasal cannula. She's afebrile. Hemodynamically stable. Feeling back to his baseline. Blood culture reveals no growth. Objective - Vital Signs Vital signs: Vital Signs Temp 97.4 F L 08/15/19 05:00 Pulse 72 08/15/19 09:28 Resp 18 08/15/19 05:00 BP 137/76 08/15/19 05:00 Pulse Ox 97 08/15/19 05:00 Intake & Output 08/14/19 08/15/19 08/15/19 18:59 06:59 18:59 Intake Total 1010 Balance 1010 Intake: Oral 1010 Other: # Voids 3 2 - Exam GENERAL EXAM: Alert, pleasant 78-year-old gentleman, active, comfortable in no apparent distress. On 4 L nasal cannula. HEAD: Normocephalic. EYES: Normal reaction of pupils, equal size. NOSE: Clear with pink turbinates. THROAT: No erythema or exudates. NECK: No masses, no JVD. CHEST: No chest wall deformity. LUNGS: Equal air entry with clear breath sounds, diminished. CVS: S1 and S2 normal with no audible murmur, regular rhythm. ABDOMEN: No hepatosplenomegaly, normal bowel sounds, no guarding or rigidity. SPINE: No scoliosis or deformity SKIN: No rashes CENTRAL NERVOUS SYSTEM: No focal deficits, tone is normal in all 4 extremities. EXTREMITIES: There is no peripheral edema. No clubbing, no cyanosis. Peripheral pulses are intact. - Labs CBC & Chem 7: 08/13/19 11:22 08/13/19 11:22 Labs: Abnormal Lab Results - Last 24 Hours (Table) 08/14/19 08/14/19 08/15/19 Range/Units 17:21 20:27 07:05 POC Glucose (mg/dL) 131 H 121 H 121 H (75-99) mg/dL Microbiology - Last 24 Hours (Table) 08/13/19 11:32 Blood Culture - Preliminary Blood No Growth after 24 hours Assessment and Plan Assessment: impression: 1 acute exacerbation of oxygen dependent COPD, patient is known to have gold stage IV COPD. 2 acute purulent tracheobronchitis 3 type 2 diabetes 4 benign essential hypertension 5 diabetic neuropathy 6. Hypercholesterolemia 7 benign essential tremors Recommendation: The patient was seen and evaluated by Dr. Coughlin. He is cleared for discharge from the pulmonary standpoint. Complete course of antibiotics. Complete prednisone taper starting at 40 mg daily for 4 days. Continue his home pulmonary medications. He does have home oxygen and home nebulizer. He'll follow-up in our office in 1-2 weeks' time. He is encouraged to call sooner with any recurrence of symptoms or other questions or concerns. I, the cosigning physician, performed a history & physical examination of the patient. Lungs sounds clear, diminished. Maintaining good O2 saturations in the 90s on 4 L/m per nasal cannula. I discussed the assessment and plan of care with my nurse practitioner, Mishel Camacho. I attest to the above note as dictated by her.
--- NOTE | 2019-08-15 19:43 | P.DS ---
Providers Date of admission: 08/13/19 12:21 Expected date of discharge: 08/15/19 Attending physician: Partha Villalobos Consults: 08/13/19 12:21 Consult Physician Routine Consulting Provider: Morris Mackey Consult Reason/Comments: COPD exacerbation Do you want consulting provider notified?: Yes Primary care physician: [facility] Course: History of presenting complaint: This is a pleasant [address] Sahil Bolanos. Chronic stable medical conditions include diabetes, hypertension, hyperlipidemia, diabetic peripheral neuropathy, essential tremor, on home oxygen. For about a week patient is getting progressively more and more short of breath, wheezing. Scattered a cough with white sputum. Also had some chills. Decreased appetite tired and rundown. Occasionally has some loose stools. Finally decided to present to the hospital. Admitted with COPD exacerbation. Pulmonary was consulted. Started on bronchodilators and steroids. Responded well. Today doing much better. Much improved. Keep to go home.. Okayed by pulmonary. Consultation: Dr. Mere Antonio from pulmonary Physical examination: VITAL SIGNS: 97.4, 62, 18, 137 was 76, 97% on 4 L GENERAL: Sitting up in chair, much improved.. EYES: Pupils equal. Conjunctiva normal. HEENT: External appearance of nose and ears normal, oral cavity grossly normal. NECK: JVD not raised; masses not palpable. HEART: First and second heart sounds are normal; no edema. LUNGS: Respiratory rate increased, diminished breath sounds prolonged expiration ABDOMEN: Soft, nontender, liver spleen not palpable, no masses palpable. PSYCH: Alert and oriented x3; mood and affect normal. INVESTIGATIONS, reviewed in the clinical context: Accu-Cheks noted Admission testing: White count 7.8 hemoglobin 14.5 platelets 187 potassium 4.8 bun 14 creatinine 1.06 ProBNP 361 troponin I less than 0.012 EKG tracing-sinus rhythm Chest x-ray film personally reviewed by me-no obvious infiltrate, hyperinflation Discharge diagnosis: -Acute COPD exacerbation in an ex-smoker -Acute tracheal bronchitis likely viral -Diabetes mellitus type 2 on oral hypoglycemic -GERD -Hyperlipidemia -Essential hypertension -BPH -Chronic hypoxic respiratory failure from underlying COPD -Diabetic peripheral neuropathy -BPH -Chronic bilateral tinnitus Disposition: Home Patient Condition at Discharge: Stable Plan - Discharge Summary Discharge Rx Participant: No New Discharge Prescriptions: New predniSONE 10 mg PO DAILY #30 tab Azithromycin [Zithromax] 500 mg PO DAILY #3 tab Continue metFORMIN HCL [Glucophage] 500 mg PO BID Pregabalin [Lyrica] 150 mg PO BID Pravastatin Sodium [Pravachol] 80 mg PO HS Losartan [Cozaar] 50 mg PO QAM Chlorthalidone [Hygroton] 12.5 mg PO QAM Albuterol Nebulized [Ventolin Nebulized] 5 mg INHALATION RT-Q4H Tiotropium [place] [Spiriva] 1 cap INHALATION RT-DAILY Propranolol HCl [Propranolol HCl ER] 60 mg PO HS Ketoconazole 2% Shampoo [Nizoral] 1 applic TOPICAL Q3D Albuterol Sulfate [Proventil Hfa] 1 - 2 puff INHALATION RT-Q4H PRN PRN Reason: Shortness Of Breath Cholecalciferol [Vitamin D3 (25 Mcg = 1000 Iu)] 1,000 unit PO DAILY Cyanocobalamin (Vitamin B-12) [Vitamin B-12] 1,000 mcg PO DAILY Mometasone Furoate [Asmanex] 1 puff INHALATION RT-BID Pyridoxine [Vitamin B-6] 50 mg PO DAILY Tadalafil [Cialis] 5 mg PO DAILY Terazosin HCl 10 mg PO DAILY Triamcinolone 0.1% Cream [Kenalog 0.1% Cream] 1 applicatio TOPICAL BID PRN PRN Reason: Rash Discharge Medication List Chlorthalidone [Hygroton] 12.5 mg PO QAM 07/15/15 [History] Losartan [Cozaar] 50 mg PO QAM 07/15/15 [History] Pravastatin Sodium [Pravachol] 80 mg PO HS 07/15/15 [History] Pregabalin [Lyrica] 150 mg PO BID 07/15/15 [History] metFORMIN HCL [Glucophage] 500 mg PO BID 07/15/15 [History] Albuterol Nebulized [Ventolin Nebulized] 5 mg INHALATION RT-Q4H 05/18/17 [History] Ketoconazole 2% Shampoo [Nizoral] 1 applic TOPICAL Q3D 05/18/17 [History] Propranolol HCl [Propranolol HCl ER] 60 mg PO HS 05/18/17 [History] Tiotropium [place] [Spiriva] 1 cap INHALATION RT-DAILY 05/18/17 [History] Albuterol Sulfate [Proventil Hfa] 1 - 2 puff INHALATION RT-Q4H PRN 03/23/19 [History] Cholecalciferol [Vitamin D3 (25 Mcg = 1000 Iu)] 1,000 unit PO DAILY 03/23/19 [History] Cyanocobalamin (Vitamin B-12) [Vitamin B-12] 1,000 mcg PO DAILY 03/23/19 [History] Mometasone Furoate [Asmanex] 1 puff INHALATION RT-BID 03/23/19 [History] Pyridoxine [Vitamin B-6] 50 mg PO DAILY 03/23/19 [History] Tadalafil [Cialis] 5 mg PO DAILY 03/23/19 [History] Terazosin HCl 10 mg PO DAILY 03/23/19 [History] Triamcinolone 0.1% Cream [Kenalog 0.1% Cream] 1 applicatio TOPICAL BID PRN 03/23/19 [History] Azithromycin [Zithromax] 500 mg PO DAILY #3 tab 08/15/19 [Rx] predniSONE 10 mg PO DAILY #30 tab 08/15/19 [Rx] Follow up Appointment(s)/Referral(s): Sahil Simms MD [Primary Care Provider] - 1-2 days Patient Instructions/Handouts: Prednisone (By mouth), Azithromycin (By mouth), COPD (Chronic Obstructive Pulmonary Disease) (DC), Chronic Lung Disease and Infection Prevention (DC), Energy Conservation Techniques (DC), Dyspnea Scale and Exercise (DC), Nutrition Guidelines for People with COPD (DC) Discharge Disposition: HOME SELF-CARE
== END 2019-08-15 12:45 | disposition home or self-care (01) ==
LOC: EC 10:48 → 3NMEDONC 12:21
PROVIDERS: ADMIT Hospitalist; ATTEND Hospitalist
DX: J44.1 Chronic obstructive pulmonary disease with (acute) exacerbation (principal); J44.0 Chronic obstructive pulmonary disease with (acute) lower respiratory infection; J20.9 Acute bronchitis, unspecified; J96.11 Chronic respiratory failure with hypoxia; K21.9 Gastro-esophageal reflux disease without esophagitis; I10 Essential (primary) hypertension; E78.5 Hyperlipidemia, unspecified; E11.42 Type 2 diabetes mellitus with diabetic polyneuropathy; Z99.81 Dependence on supplemental oxygen; E78.00 Pure hypercholesterolemia, unspecified; G25.0 Essential tremor; N40.0 Benign prostatic hyperplasia without lower urinary tract symptoms; H93.13 Tinnitus, bilateral; H91.91 Unspecified hearing loss, right ear; K44.9 Diaphragmatic hernia without obstruction or gangrene; Z79.84 Long term (current) use of oral hypoglycemic drugs; Z79.51 Long term (current) use of inhaled steroids; Z79.899 Other long term (current) drug therapy; Z88.0 Allergy status to penicillin; Z88.1 Allergy status to other antibiotic agents; Z87.11 Personal history of peptic ulcer disease; Z86.010 Personal history of colon polyps; Z86.19 Personal history of other infectious and parasitic diseases; Z87.01 Personal history of pneumonia (recurrent); Z87.891 Personal history of nicotine dependence; Z98.52 Vasectomy status; Z98.42 Cataract extraction status, left eye; Z98.41 Cataract extraction status, right eye; Z80.49 Family history of malignant neoplasm of other genital organs; Z80.0 Family history of malignant neoplasm of digestive organs
CPT/HCPCS: 96376 ×2; 96372 ×3; 96375 ×2; 96365; 99285; 36415; 94640 ×5; 94760; 93005; 83880; 80053; 83735; 84484; 85025; 85610; 85730; 87040; 83036; 71046; G0378 ×3; J2920 ×2; J2930; J0456; J1650 ×3; J0696

== ENCOUNTER 2020-06-13 08:37 | Inpatient (IN) | payer OTHER, MEDICARE, BC ==
[~2020-06-13 08:37] MED LIST: NON FORMULARY DRUG (Tiotropium Bromide [Spiriva] 1 CAP) INHALATION SCH
[2020-06-13] MEDS ORDERED: IPRATROPIUM 0.5 MG/2.5 ML NEBU INHALATION STA (08:57)
[2020-06-13] MEDS ORDERED: methylPREDNISolone SOD SUCCI 125 MG/2 ML VIAL IV STA (08:57)
[2020-06-13] MEDS ORDERED: ALBUTEROL NEBULIZED 2.5 MG/3 ML INHALATION STA (08:57)
[2020-06-13] MEDS ORDERED: cefTRIAXone IN SWFI 1,000 MG/10 ML SYRINGE IVP STA (09:00)
--- NOTE | 2020-06-13 09:05 | ED ---
General Adult HPI - General Chief complaint: Shortness of Breath Stated complaint: SOB Time Seen by Provider: 06/13/20 08:40 Source: patient, RN notes reviewed, old records reviewed Mode of arrival: wheelchair - History of Present Illness Initial comments: This is a 79-year-old male who presents emergency Department with a past medical history significant for COPD and diabetes. Patient comes in today because he states over the last week his difficulty breathing is gotten considerably worse. Patient states he's also coughing a lot more coughing up a lot of sputum. Patient denies any fever chills per patient denies any chest pain or palpitations. Patient denies any lightheadedness or dizziness. Patient denies headache patient denies numbness weakness. Patient denies abdominal pain patient denies nausea vomiting diarrhea. Patient has a swollen to the legs or calf tenderness. - Related Data Home Medications Medication Instructions Recorded Confirmed Chlorthalidone [Hygroton] 12.5 mg PO QAM 07/15/15 08/13/19 Losartan [Cozaar] 50 mg PO QAM 07/15/15 08/13/19 Pravastatin Sodium [Pravachol] 80 mg PO HS 07/15/15 08/13/19 Pregabalin [Lyrica] 150 mg PO BID 07/15/15 08/13/19 metFORMIN HCL [Glucophage] 500 mg PO BID 07/15/15 08/13/19 Albuterol Nebulized [Ventolin 5 mg INHALATION RT-Q4H 05/18/17 08/13/19 Nebulized] Ketoconazole 2% Shampoo [Nizoral] 1 applic TOPICAL Q3D 05/18/17 08/13/19 Propranolol HCl [Propranolol HCl 60 mg PO HS 05/18/17 08/13/19 ER] Tiotropium [place] [Spiriva] 1 cap INHALATION RT-DAILY 05/18/17 08/13/19 Albuterol Sulfate [Proventil Hfa] 1 - 2 puff INHALATION RT-Q4H PRN 03/23/19 08/13/19 Cholecalciferol [Vitamin D3 (25 1,000 unit PO DAILY 03/23/19 08/13/19 Mcg = 1000 Iu)] Cyanocobalamin (Vitamin B-12) 1,000 mcg PO DAILY 03/23/19 08/13/19 [Vitamin B-12] Mometasone Furoate [Asmanex] 1 puff INHALATION RT-BID 03/23/19 08/13/19 Pyridoxine [Vitamin B-6] 50 mg PO DAILY 03/23/19 08/13/19 Tadalafil [Cialis] 5 mg PO DAILY 03/23/19 08/13/19 Terazosin HCl 10 mg PO DAILY 03/23/19 08/13/19 Triamcinolone 0.1% Cream [Kenalog 1 applicatio TOPICAL BID PRN 03/23/19 08/13/19 0.1% Cream] Previous Rx's Medication Instructions Recorded Azithromycin [Zithromax] 500 mg PO DAILY #3 tab 08/15/19 predniSONE 10 mg PO DAILY #30 tab 08/15/19 Allergies Allergy/AdvReac Type Severity Reaction Status Date / Time ciprofloxacin [From Cipro] Allergy Rash/Hives Verified 06/13/20 08:42 ciprofloxacin HCl Allergy Rash/Hives Verified 06/13/20 08:42 [From Cipro] Penicillins Allergy Rash/Hives Verified 06/13/20 08:42 Review of Systems ROS Statement: Those systems with pertinent positive or pertinent negative responses have been documented in the HPI. ROS Other: All systems not noted in ROS Statement are negative. Past Medical History Past Medical History: COPD, Diabetes Mellitus, Eye Disorder, GERD/Reflux, GI Bleed, Hearing Disorder / Deafness, Hyperlipidemia, Hypertension, Pneumonia, Prostate Disorder, Respiratory Disorder, Skin Disorder Additional Past Medical History / Comment(s): Chronic hypoxic respiratory failure, home oxygen at 3L/NC ATC, NIDDM type II, neuropathy bilateral feet, BPH, occasional dermatitis since [place], [place] bilaterally and R ear current infection with ear drops, bilateral tinnitis, patient states has had diarrhea past one week-loose stools not watery, gastric ulcer, lower GI bleed, small hiatal hernia, past admission for colitis/sepsis-pt does not recall this. History of Any Multi-Drug Resistant Organisms: None Reported Past Surgical History: Hernia Repair Additional Past Surgical History / Comment(s): Incisional hernias x2, bilateral cataract removals, colonoscopy with benign polyp, vasectomy Past Anesthesia/Blood Transfusion Reactions: No Reported Reaction Past Psychological History: No Psychological Hx Reported Smoking Status: Former smoker Past Alcohol Use History: None Reported Past Drug Use History: None Reported - Past Family History Mother Family Medical History: No Reported History Additional Family Medical History / Comment(s): Mother was healthy. Father Family Medical History: Cancer Additional Family Medical History / Comment(s): COLON Sister(s) Family Medical History: Cancer Additional Family Medical History / Comment(s): REPRODUCTIVE General Exam - General Exam Comments Initial Comments: GENERAL: Patient is well-developed and well-nourished. Patient is nontoxic and well- hydrated and is in mild distress. ENT: Neck is soft and supple. No significant lymphadenopathy is noted. Oropharynx is clear. Moist mucous membranes. Neck has full range of motion without eliciting any pain. EYES: The sclera were anicteric and conjunctiva were pink and moist. Extraocular movements were intact and pupils were equal round and reactive to light. Eyelids were unremarkable. PULMONARY: Patient is poor air exchange affect. Wheezing. CARDIOVASCULAR: There is a regular rate and rhythm without any murmurs gallops or rubs. ABDOMEN: Soft and nontender with normal bowel sounds. No palpable organomegaly was noted. There is no palpable pulsatile mass. SKIN: Skin is clear with no lesions or rashes and otherwise unremarkable. NEUROLOGIC: Patient is alert and oriented x3. Cranial nerves II through XII are grossly intact. Motor and sensory are also intact. Normal speech, volume and content. Symmetrical smile. MUSCULOSKELETAL: Normal extremities with adequate strength and full range of motion. No lower extremity swelling or edema. No calf tenderness. LYMPHATICS: No significant lymphadenopathy is noted PSYCHIATRIC: Normal psychiatric evaluation. Course Vital Signs 06/13/20 06/13/20 06/13/20 08:38 08:59 09:21 Temperature 98.2 F 97.9 F Pulse Rate 65 61 Respiratory 22 22 22 Rate Blood Pressure 116/55 121/97 O2 Sat by Pulse 89 L 98 Oximetry 06/13/20 06/13/20 09:22 09:42 Temperature Pulse Rate 62 62 Respiratory Rate Blood Pressure O2 Sat by Pulse Oximetry Medical Decision Making - Medical Decision Making EKG shows sinus rhythm with occasional PAC at 65 bpm [place] interval is 126 QRS is 80 QT intervals 42 QTC is 418. Patient's EKG shows no ST segment elevation or depression. Chest x-ray shows no acute abnormality. Patient received 1 g Rocephin because he has COPD and is coughing up quite a bit of sputum. I spoke with Dr. Villalobos agreed to admit the patient I wrote admitted the patient I wrote admitting orders. Patient received multiple treatments of albuterol and Atrovent no department and patient received steroids. Patient's subdural treatments steroids will be continued on the floor. - Lab Data Result diagrams: 06/13/20 09:28 Lab Results 06/13/20 06/13/20 06/13/20 Range/Units 09:28 09:28 09:28 WBC 9.7 (3.8-10.6) k/uL RBC 5.10 (4.30-5.90) m/uL Hgb 13.9 (13.0-17.5) gm/dL Hct 45.6 (39.0-53.0) % MCV 89.5 (80.0-100.0) fL MCH 27.3 (25.0-35.0) pg MCHC 30.6 L (31.0-37.0) g/dL RDW 14.4 (11.5-15.5) % Plt Count 145 L (150-450) k/uL Neutrophils % 69 % Lymphocytes % 13 % Monocytes % 6 % Eosinophils % 10 % Basophils % 1 % Neutrophils # 6.7 (1.3-7.7) k/uL Lymphocytes # 1.2 (1.0-4.8) k/uL Monocytes # 0.6 (0-1.0) k/uL Eosinophils # 0.9 H (0-0.7) k/uL Basophils # 0.1 (0-0.2) k/uL PT 9.9 (9.0-12.0) sec INR 1.0 (<1.2) APTT 25.7 (22.0-30.0) sec Plasma Lactic Acid Nolberto 0.8 (0.7-2.0) mmol/L Critical Care Time Critical Care Time: Yes Total Critical Care Time: 35 Disposition Clinical Impression: Acute exacerbation of chronic obstructive pulmonary disease (COPD) Disposition: ADMITTED IP TO THIS HOSP Referrals: Sahil Simms MD [Primary Care Provider] - 1-2 days Time of Disposition: 10:03
[2020-06-13 09:40] LABS: Basophils # (A) 0.1 k/uL (0-0.2); Basophils % (A) 1 %; Eosinophils # (A) 0.9 k/uL (0-0.7); Eosinophils % (A) 10 %; HCT 45.6 % (39.0-53.0); HGB 13.9 gm/dL (13.0-17.5); Lymphocytes # (A) 1.2 k/uL (1.0-4.8); Lymphocytes % (A) 13 %; MCH 27.3 pg (25.0-35.0); MCHC 30.6 g/dL (31.0-37.0); MCV 89.5 fL (80.0-100.0); Mean Platelet Volume 7.7; Monocytes # (A) 0.6 k/uL (0-1.0); Monocytes % (A) 6 %; Neutrophils # (A) 6.7 k/uL (1.3-7.7); Neutrophils % (A) 69 %; Platelet Count 145 k/uL (150-450); RDW 14.4 % (11.5-15.5); WBC 9.7 k/uL (3.8-10.6)
[2020-06-13] MEDS ORDERED: ACETAMINOPHEN TAB 500 MG TAB PO STA (09:46)
[2020-06-13 09:50] LABS: Partial Thromboplastin Time 25.7 sec (22.0-30.0); Prothrombin Time 9.9 sec (9.0-12.0)
[2020-06-13 09:57] LABS: ALT 14 U/L (4-49); AST 23 U/L (17-59); African American GFR (CKD) >90 (>60 ml/min/1.73 sqM); Albumin 3.8 g/dL (3.5-5.0); Alkaline Phosphatase 81 U/L (38-126); Blood Urea Nitrogen 21 mg/dL (9-20); Calcium 8.3 mg/dL (8.4-10.2); Chloride 93 mmol/L (98-107); Glucose 110 mg/dL (74-99); Magnesium 1.9 mg/dL (1.6-2.3); Non-African American GFR(CKD) 84 (>60 ml/min/1.73 sqM); Potassium 4.4 mmol/L (3.5-5.1); Sodium 140 mmol/L (137-145); Total Bilirubin 1.1 mg/dL (0.2-1.3); Total Protein 6.2 g/dL (6.3-8.2)
--- NOTE | 2020-06-13 10:01 | XR ---
EXAMINATION TYPE: XR chest 2V DATE OF EXAM: 06/13/2020 COMPARISON: Chest x-ray August 13, 2019. CT chest April 18, 2016. HISTORY: History of COPD and CHF with shortness of breath. TECHNIQUE: Frontal and lateral views of the chest are obtained. FINDINGS: There is background chronic emphysematous and parenchymal fibrotic change without suspicio us new focal air space opacity, pleural effusion, or pneumothorax seen bilaterally. The cardiac silh ouette size remains within normal limits. Overlying EKG leads are redemonstrated. Multilevel spurri ng in thoracic spine again seen. IMPRESSION: Chronic changes without new acute pulmonary process.
[2020-06-13 10:03] LABS: Anion Gap 3 mmol/L
[2020-06-13] MEDS ORDERED: IPRATROPIUM-ALBUTEROL 3 ML NEB INHALATION PRN ×2 (10:03→10:38)
[2020-06-13 10:05] LABS: Carbon Dioxide 44 mmol/L (22-30)
[2020-06-13] MEDS ORDERED: IPRATROPIUM-ALBUTEROL 3 ML NEB INHALATION STA ×2 (10:14→10:35)
[2020-06-13] MEDS ORDERED: TRIAMCINOLONE 0.1% CREAM 80 GM TUBE TOPICAL PRN (11:38)
[2020-06-13] MEDS ORDERED: methylPREDNISolone SOD SUCCI 125 MG/2 ML VIAL IV SCH (12:00)
[2020-06-13 12:09] LABS: Glucose,Whole Blood 192 mg/dL (75-99)
[2020-06-13] MEDS ORDERED: IPRATROPIUM-ALBUTEROL 3 ML NEB INHALATION SCH (13:00)
[2020-06-13] MEDS: CLINDAMYCIN TOPICAL SCH (13:20)
[2020-06-13] MEDS: HYDROCORTISONE 1% CREAM 30 GM TUBE TOPICAL SCH ×2 (13:27→21:43)
[2020-06-13] MEDS: MINERAL OIL-WHITE PETROLATUM 120 GM JAR TOPICAL SCH (13:27)
[2020-06-13] MEDS: FLUTICASONE 50MCG/SPRAY NASAL 16GM EA NOSTRIL SCH ×2 (13:27→21:43)
[2020-06-13] MEDS: PYRIDOXINE 50 MG TAB PO SCH (13:27)
[2020-06-13] MEDS: metFORMIN 500 MG TAB PO SCH ×2 (13:28→21:42)
[2020-06-13] MEDS: LOSARTAN 50 MG TAB PO SCH (13:29)
[2020-06-13] MEDS: CYANOCOBALAMIN 500 MCG TAB PO SCH (13:29)
[2020-06-13] MEDS: PREGABALIN 75 MG CAP PO SCH ×2 (13:29→21:42)
[2020-06-13] MEDS: DOXAZOSIN 4 MG TAB PO SCH (13:29)
[2020-06-13] MEDS: ENOXAPARIN 40 MG/0.4 ML SYRINGE SQ SCH (13:30)
[2020-06-13] MEDS: TADALAFIL 5 MG PO SCH (13:30)
[2020-06-13] MEDS: METRONIDAZOLE 1% TOPICAL SCH ×2 (13:30→21:46)
[2020-06-13] MEDS: guaiFENesin 600 MG TABLET.ER PO SCH ×2 (13:33→21:48)
[2020-06-13] MEDS: IPRATROPIUM-ALBUTEROL 3 ML NEB INHALATION SCH ×2 (16:10→20:42)
[2020-06-13] MEDS: BUDESONIDE 1 MG/2 ML NEBU INHALATION SCH ×2 (16:10→20:42)
[2020-06-13 16:46] LABS: Glucose,Whole Blood 265 mg/dL (75-99)
[2020-06-13] MEDS: INSULIN ASPART (NovoLOG) 100 UNIT/ML VIAL SQ SCH ×2 (17:30→21:41)
[2020-06-13] MEDS: methylPREDNISolone SOD SUCCI 40 MG/ML 1 ML VIAL IV SCH (17:32)
[2020-06-13 20:03] LABS: Glucose,Whole Blood 137 mg/dL (75-99)
--- NOTE | 2020-06-13 20:14 | P.HPIM ---
History of Present Illness H&P Date: 06/13/20 Chief Complaint: Short of breath History of presenting complaint: Pleasant [address] Sahil Simms. Chronic stable medical conditions include diabetes, hypertension, hyperlipidemia, diabetic peripheral neuropathy, essential tremor, on home oxygen-3 L. For about a week patient is getting progressively more and more short of breath, wheezing. Cough with a lot of white sputum.. Denies fever and chills.. Appetite has remained good.. Symptoms are progressively been getting worse. Admitted with COPD exacerbation. Review of systems: GEN.: Tired EYES: None HEENT: None NECK: None RESPIRATORY: As above CARDIOVASCULAR: None GASTROINTESTINAL: None GENITOURINARY: None MUSCULOSKELETAL: Some joint pains LYMPHATICS: None HEMATOLOGICAL: None PSYCHIATRY: Anxious NEUROLOGICAL: None Past medical history: COPD, diabetes, GERD, GI bleed, decreased hearing, hyperlipidemia, hypertension, prostate disorder, home oxygen 3 L, peripheral neuropathy, BPH, decreased he aring in right ear, bilateral tinnitus, Social history: Lives alone. Smoked for about 35 years stopped in 1996 about 20 years ago. Physical examination: VITAL SIGNS: 98.2, 65, 22, 116/55, 89% on 3 L GENERAL: BMI 25.1, sitting up in bed, tired EYES: Pupils equal. Conjunctiva normal. HEENT: External appearance of nose and ears normal, oral cavity grossly normal. NECK: JVD not raised; masses not palpable. HEART: First and second heart sounds are normal; no edema. LUNGS: Respiratory rate increased, diminished breath sounds prolonged expiration and wheezing. ABDOMEN: Soft, nontender, liver spleen not palpable, no masses palpable. PSYCH: Alert and oriented x3; mood and affect normal. NEUROLOGICAL: Cranial nerves grossly intact; no facial asymmetry, power and sensation grossly intact, resting tremor. LYMPHATICS: No lymph nodes palpable in the axilla and neck INVESTIGATIONS, reviewed in the clinical context: White count 9.70 globin 3.9 platelets 145 pressure 4.4 creatinine 0.86 EKG tracing personally reviewed by me-normal sinus rhythm Chest x-ray film, personally reviewed by me-predominant lung montoya, prominent pulmonary artery, no obvious infiltrate, but chronic changes Assessment: -Acute COPD exacerbation in an ex-smoker -Acute tracheal bronchitis likely viral -Diabetes mellitus type 2 on oral hypoglycemic -GERD -Hyperlipidemia -Essential hypertension -BPH -Chronic hypoxic respiratory failure from underlying COPD, on home 3 L at home -Acute hypoxic is pretty failure from COPD exacerbation -Diabetic peripheral neuropathy -BPH -Chronic bilateral tinnitus Plan: Patient started on nebulized bronchitis, IV and his steroids, Mucinex. Home medications resumed. Consult pulmonary. Oxygen supplementation. Lovenox for DVT prophylaxis. Past Medical History Past Medical History: COPD, Diabetes Mellitus, Eye Disorder, GERD/Reflux, GI Bleed, Hearing Disorder / Deafness, Hyperlipidemia, Hypertension, Pneumonia, Prostate Disorder, Respiratory Disorder, Skin Disorder Additional Past Medical History / Comment(s): Chronic hypoxic respiratory failure, home oxygen at 3L/[place] ATC, bronchitis, NIDDM type II, neuropathy bilateral feet, essential tremors, BPH, occasional dermatitis since [place], SLEETMUTE bilaterally and R ear recurrent infections, bilateral tinnitis, gastric ulcers, lower GI bleed, small hiatal hernia, past admission for colitis/sepsis-pt does not recall this. History of Any Multi-Drug Resistant Organisms: None Reported Past Surgical History: Hernia Repair Additional Past Surgical History / Comment(s): Incisional hernias x2, bilateral cataract removals, colonoscopy with benign polyp, vasectomy Past Anesthesia/Blood Transfusion Reactions: No Reported Reaction Past Psychological History: No Psychological Hx Reported Additional Psychological History / Comment(s): Pt resides alone in an apartment. He has home oxygen, nebulizer and glucometer. He uses no assistive devices. He drives. Smoking Status: Former smoker Past Alcohol Use History: None Reported Additional Past Alcohol Use History / Comment(s): Pt started smoking in 1961 and quit in 1996 Past Drug Use History: None Reported - Past Family History Mother Family Medical History: No Reported History Additional Family Medical History / Comment(s): Mother was healthy. Father Family Medical History: Cancer Additional Family Medical History / Comment(s): COLON Sister(s) Family Medical History: Cancer Additional Family Medical History / Comment(s): REPRODUCTIVE Medications and Allergies Home Medications Medication Instructions Recorded Confirmed Type Chlorthalidone [Hygroton] 12.5 mg PO QAM 07/15/15 06/13/20 History Losartan [Cozaar] 50 mg PO QAM 07/15/15 06/13/20 History Pravastatin Sodium [Pravachol] 40 mg PO HS 07/15/15 06/13/20 History Pregabalin [Lyrica] 150 mg PO BID 07/15/15 06/13/20 History metFORMIN HCL [Glucophage] 500 mg PO BID 07/15/15 06/13/20 History Albuterol Nebulized [Ventolin 5 mg INHALATION RT-TID 05/18/17 06/13/20 History Nebulized] Ketoconazole 2% Shampoo [Nizoral] 1 applic TOPICAL Q3D 05/18/17 06/13/20 History Propranolol HCl [Propranolol HCl 60 mg PO HS 05/18/17 06/13/20 History ER] Tiotropium [place] [Spiriva] 1 cap INHALATION RT-DAILY 05/18/17 06/13/20 History Albuterol Sulfate [Proventil Hfa] 1 - 2 puff INHALATION RT-Q4H PRN 03/23/19 06/13/20 History Cholecalciferol [Vitamin D3 (25 2,000 unit PO DAILY 03/23/19 06/13/20 History Mcg = 1000 Iu)] Cyanocobalamin (Vitamin B-12) 1,000 mcg PO DAILY 03/23/19 06/13/20 History [Vitamin B-12] Mometasone Furoate [Asmanex] 1 puff INHALATION RT-DAILY 03/23/19 06/13/20 History Pyridoxine [Vitamin B-6] 50 mg PO DAILY 03/23/19 06/13/20 History Tadalafil [Cialis] 5 mg PO DAILY 03/23/19 06/13/20 History Terazosin HCl 10 mg PO DAILY 03/23/19 06/13/20 History Triamcinolone 0.1% Cream [Kenalog 1 applicatio TOPICAL BID PRN 03/23/19 06/13/20 History 0.1% Cream] Clindamycin 1% Foam 1 applic TOPICAL DAILY 06/13/20 06/13/20 History Colloidal Oatmeal [Eucerin Eczema 1 applic TOPICAL DAILY 06/13/20 06/13/20 History Relief] Desonide [DesOwen .05%] 1 applic TOPICAL BID 06/13/20 06/13/20 History Fluticasone Nasal [place] [Flonase 1 spr EA NOSTRIL BID 06/13/20 06/13/20 History Nasal Ponce] Metronidazole 1% Cream 1 applic TOPICAL BID 06/13/20 06/13/20 History Selenium Sulfide Shampoo 1 applic TOPICAL Q7D 06/13/20 06/13/20 History Allergies Allergy/AdvReac Type Severity Reaction Status Date / Time ciprofloxacin [From Cipro] Allergy Rash/Hives Verified 06/13/20 10:14 ciprofloxacin HCl Allergy Rash/Hives Verified 06/13/20 10:14 [From Cipro] Penicillins Allergy Rash/Hives Verified 06/13/20 10:14 Physical Exam Vitals: Vital Signs Temp Pulse Resp BP Pulse Ox 06/13/20 11:10 98 F 63 20 108/51 94 L 06/13/20 10:42 60 06/13/20 10:28 66 06/13/20 09:42 62 06/13/20 09:22 62 06/13/20 09:21 22 06/13/20 08:59 97.9 F 61 22 121/97 98 06/13/20 08:38 98.2 F 65 22 116/55 89 L Intake and Output 06/12/20 06/13/20 06/13/20 22:59 06:59 14:59 Other: Weight 74.843 kg Results CBC & Chem 7: 06/13/20 09:28 06/13/20 09:28 Labs: Abnormal Lab Results - Last 24 Hours (Table) 06/13/20 06/13/20 Range/Units 09:28 09:28 MCHC 30.6 L (31.0-37.0) g/dL Plt Count 145 L (150-450) k/uL Eosinophils # 0.9 H (0-0.7) k/uL Chloride 93 L (98-107) mmol/L Carbon Dioxide 44 H* (22-30) mmol/L BUN 21 H (9-20) mg/dL Glucose 110 H (74-99) mg/dL Calcium 8.3 L (8.4-10.2) mg/dL Total Protein 6.2 L (6.3-8.2) g/dL Thrombosis Risk Factor Assmnt - Choose All That Apply Any of the Below Risk Factors Present?: Yes Each Factor Represents 1 point: Abnormal pulmonary function (COPD), Serious lung disease incl. pneumonia (< 1month) Other Risk Factors: Yes Each Risk Factor Represents 3 Points: Age 75 years or older Other congenital or acquired thrombophilia - If yes, enter type in comment: No Thrombosis Risk Factor Assessment Total Risk Factor Score: 5 Thrombosis Risk Factor Assessment Level: High Risk
[2020-06-13] MEDS: PRAVASTATIN SODIUM 40 MG TAB PO SCH (21:42)
[2020-06-13] MEDS: PROPRANOLOL LA 60 MG CAP.SA.24H PO SCH (21:42)
[2020-06-13] MEDS: CEFDINIR 300 MG CAP PO SCH (21:43)
[2020-06-14] MEDS: methylPREDNISolone SOD SUCCI 40 MG/ML 1 ML VIAL IV SCH ×3 (00:36→17:43)
[2020-06-14] MEDS: IPRATROPIUM-ALBUTEROL 3 ML NEB INHALATION SCH ×6 (01:44→20:06)
[2020-06-14 06:04] LABS: Glucose,Whole Blood 159 mg/dL (75-99)
[2020-06-14] MEDS: INSULIN ASPART (NovoLOG) 100 UNIT/ML VIAL SQ SCH ×4 (07:29→21:24)
[2020-06-14] MEDS: FLUTICASONE 110 MCG INHALER INHALATION SCH ×2 (08:12→20:30)
[2020-06-14] MEDS: BUDESONIDE 1 MG/2 ML NEBU INHALATION SCH ×2 (08:12→20:06)
[2020-06-14] MEDS: PREGABALIN 75 MG CAP PO SCH ×2 (09:26→20:53)
[2020-06-14] MEDS: LOSARTAN 50 MG TAB PO SCH (09:26)
[2020-06-14] MEDS: guaiFENesin 600 MG TABLET.ER PO SCH ×2 (09:26→20:53)
[2020-06-14] MEDS: metFORMIN 500 MG TAB PO SCH ×2 (09:26→20:53)
[2020-06-14] MEDS: CEFDINIR 300 MG CAP PO SCH ×2 (09:26→20:53)
[2020-06-14] MEDS: DOXAZOSIN 4 MG TAB PO SCH (09:26)
[2020-06-14] MEDS: ENOXAPARIN 40 MG/0.4 ML SYRINGE SQ SCH (09:26)
[2020-06-14] MEDS: CYANOCOBALAMIN 500 MCG TAB PO SCH (09:26)
[2020-06-14] MEDS: PYRIDOXINE 50 MG TAB PO SCH (09:27)
[2020-06-14] MEDS: MINERAL OIL-WHITE PETROLATUM 120 GM JAR TOPICAL SCH (09:29)
[2020-06-14] MEDS: HYDROCORTISONE 1% CREAM 30 GM TUBE TOPICAL SCH ×2 (09:29→20:56)
[2020-06-14] MEDS: TADALAFIL 5 MG PO SCH (09:54)
[2020-06-14] MEDS: CLINDAMYCIN TOPICAL SCH (09:54)
[2020-06-14] MEDS: METRONIDAZOLE 1% TOPICAL SCH ×2 (09:54→21:23)
[2020-06-14] MEDS: FLUTICASONE 50MCG/SPRAY NASAL 16GM EA NOSTRIL SCH ×2 (11:11→20:56)
[2020-06-14 11:25] LABS: Glucose,Whole Blood 136 mg/dL (75-99)
[2020-06-14 16:57] LABS: Glucose,Whole Blood 147 mg/dL (75-99)
[2020-06-14] MEDS: PROPRANOLOL LA 60 MG CAP.SA.24H PO SCH (20:53)
[2020-06-14] MEDS: PRAVASTATIN SODIUM 40 MG TAB PO SCH (20:53)
[2020-06-14] MEDS ORDERED: KETOCONAZOLE 2% SHAMPOO 1 APPLIC/ML TOPICAL SCH (21:00)
[2020-06-14 21:12] LABS: Glucose,Whole Blood 140 mg/dL (75-99)
--- NOTE | 2020-06-14 22:18 | P.PN ---
Progress Note - Text Progress Note Date: 06/14/20 Chief Complaint: Short of breath History of presenting complaint: Pleasant [address] Sahil Simms. Chronic stable medical conditions include diabetes, hypertension, hyperlipidemia, diabetic peripheral neuropathy, essential tremor, on home oxygen-3 L. For about a week patient is getting progressively more and more short of breath, wheezing. Cough with a lot of white sputum.. Denies fever and chills.. Appetite has remained good.. Symptoms are progressively been getting worse. Admitted with COPD exacerbation. Admitted with COPD exacerbation and acute tracheal bronchitis likely viral. Today-some improvement in shortness breath. Some cough and wheezing present. Coughing some clear sputum. Appetite fair. Review of systems: Was done for constitutional, cardiovascular, GI, pulmonary. relevant finding as above Active Medications Albuterol/Ipratropium (Duoneb 0.5 Mg-3 Mg/3 Ml Soln) 3 ml INHALATION RT-Q2H PRN PRN Reason: Shortness Of Breath Albuterol/Ipratropium (Duoneb 0.5 Mg-3 Mg/3 Ml Soln) 3 ml INHALATION RT-Q4H [facility] Last Admin: 06/14/20 20:06 Dose: 3 ml Documented by: Budesonide (Pulmicort) 1 mg INHALATION RT-BID [facility] Last Admin: 06/14/20 20:06 Dose: 1 mg Documented by: Cefdinir (Omnicef) 300 mg PO BID [facility] Stop: 06/23/20 21:01 Last Admin: 06/14/20 20:53 Dose: 300 mg Documented by: Cyanocobalamin (Vitamin B-12) 1,000 mcg PO DAILY [facility] Last Admin: 06/14/20 09:26 Dose: 1,000 mcg Documented by: Doxazosin Mesylate (Cardura) 8 mg PO DAILY [facility] Last Admin: 06/14/20 09:26 Dose: 8 mg Documented by: Enoxaparin Sodium (Lovenox) 40 mg SQ DAILY [facility] Last Admin: 06/14/20 09:26 Dose: 40 mg Documented by: Fluticasone Propionate (Flonase Nasal [place]) 1 spray EA NOSTRIL BID [facility] Last Admin: 06/14/20 20:56 Dose: 1 spray Documented by: Fluticasone Propionate (Flovent 110 Mcg Inhaler) 1 puff INHALATION RT-BID [facility] Last Admin: 06/14/20 20:30 Dose: Not Given Documented by: Guaifenesin (Mucinex) 1,200 mg PO Q12HR [facility] Last Admin: 06/14/20 20:53 Dose: 1,200 mg Documented by: Hydrocortisone (Hydrocortisone 1% Cream) 1 applic TOPICAL BID [facility] Last Admin: 06/14/20 20:56 Dose: Not Given Documented by: Insulin Aspart (Novolog) 0 unit SQ ACHS [facility]; Protocol Last Admin: 06/14/20 21:24 Dose: 1 unit Documented by: Ketoconazole (Nizoral) 1 applic TOPICAL Q3D [facility] Last Admin: 06/14/20 21:23 Dose: Not Given Documented by: Losartan Potassium (Cozaar) 50 mg PO QAM [facility] Last Admin: 06/14/20 09:26 Dose: 50 mg Documented by: Metformin HCl (Glucophage) 500 mg PO BID [facility] Last Admin: 06/14/20 20:53 Dose: 500 mg Documented by: Methylprednisolone Sodium Succinate (Solu-Medrol) 40 mg IV Q8HR [facility] Last Admin: 06/14/20 17:43 Dose: 40 mg Documented by: Multi-Ingred Cream/Lotion/Oil/Oint (Eucerin Cream) 1 applic TOPICAL DAILY [facility] Last Admin: 06/14/20 09:29 Dose: 1 applic Documented by: Patient's Own ( Clindamycin 1% Foam 1 Applic) 1 applic TOPICAL DAILY [facility] Last Admin: 06/14/20 09:54 Dose: Not Given Documented by: Patient's Own ( Metronidazole 1% Cream 1 Applic) 1 applic TOPICAL BID [facility] Last Admin: 06/14/20 21:23 Dose: Not Given Documented by: Patient's Own ( Tadalafil [Cialis] 5 Mg) 5 mg PO DAILY [facility] Last Admin: 06/14/20 09:54 Dose: Not Given Documented by: Pravastatin Sodium (Pravachol) 40 mg PO HS [facility] Last Admin: 06/14/20 20:53 Dose: 40 mg Documented by: Pregabalin (Lyrica) 150 mg PO BID [facility] Last Admin: 06/14/20 20:53 Dose: 150 mg Documented by: Propranolol HCl (Inderal La) 60 mg PO HS [facility] Last Admin: 06/14/20 20:53 Dose: 60 mg Documented by: Pyridoxine HCl (Vitamin B-6) 50 mg PO DAILY [facility] Last Admin: 06/14/20 09:27 Dose: 50 mg Documented by: Triamcinolone Acetonide (Kenalog) 1 applic TOPICAL BID PRN PRN Reason: Rash Physical examination: VITAL SIGNS: 97.8, 66, 24, 120/65, 91% on 3 L GENERAL: BMI 25.4, sitting up, looking better EYES: Pupils equal. Conjunctiva normal. HEENT: External appearance of nose and ears normal, oral cavity grossly normal. NECK: JVD not raised; masses not palpable. HEART: First and second heart sounds are normal; no edema. LUNGS: Respiratory rate increased, diminished breath sounds prolonged expiration, less wheezing. ABDOMEN: Soft, nontender, liver spleen not palpable, no masses palpable. PSYCH: Alert and oriented x3; mood and affect normal. INVESTIGATIONS, reviewed in the clinical context: White count 9.70 globin 3.9 platelets 145 pressure 4.4 creatinine 0.86 EKG tracing personally reviewed by me-normal sinus rhythm Chest x-ray film, personally reviewed by me-predominant lung montoya, prominent pulmonary artery, no obvious infiltrate, but chronic changes Assessment: -Acute COPD exacerbation in an ex-smoker slowly improving -Acute tracheal bronchitis likely viral -Diabetes mellitus type 2 on oral hypoglycemic -GERD -Hyperlipidemia -Essential hypertension -BPH -Chronic hypoxic respiratory failure from underlying COPD, on home 3 L at home -Acute hypoxic is pretty failure from COPD exacerbation -Diabetic peripheral neuropathy -BPH -Chronic bilateral tinnitus Plan: Cardiology with bronchodilators, steroids are the medications. Encouraged to ambulate. On Omnicef
[2020-06-15] MEDS: IPRATROPIUM-ALBUTEROL 3 ML NEB INHALATION SCH ×4 (00:23→11:03)
[2020-06-15] MEDS: methylPREDNISolone SOD SUCCI 40 MG/ML 1 ML VIAL IV SCH ×2 (00:47→09:48)
[2020-06-15 04:36] VITALS: RESP 18
[2020-06-15 06:20] LABS: Glucose,Whole Blood 124 mg/dL (75-99)
[2020-06-15] MEDS: INSULIN ASPART (NovoLOG) 100 UNIT/ML VIAL SQ SCH (06:20)
[2020-06-15] MEDS: BUDESONIDE 1 MG/2 ML NEBU INHALATION SCH (07:13)
[2020-06-15] MEDS: FLUTICASONE 110 MCG INHALER INHALATION SCH (07:24)
[2020-06-15 08:17] VITALS: TEMP 97.9
[2020-06-15] MEDS: PREGABALIN 75 MG CAP PO SCH (09:49)
[2020-06-15] MEDS: LOSARTAN 50 MG TAB PO SCH (09:49)
[2020-06-15] MEDS: CEFDINIR 300 MG CAP PO SCH (09:49)
[2020-06-15] MEDS: ENOXAPARIN 40 MG/0.4 ML SYRINGE SQ SCH (09:49)
[2020-06-15] MEDS: guaiFENesin 600 MG TABLET.ER PO SCH (09:50)
[2020-06-15] MEDS: DOXAZOSIN 4 MG TAB PO SCH (09:50)
[2020-06-15] MEDS: CYANOCOBALAMIN 500 MCG TAB PO SCH (09:50)
[2020-06-15] MEDS: metFORMIN 500 MG TAB PO SCH (09:50)
[2020-06-15] MEDS: PYRIDOXINE 50 MG TAB PO SCH (09:50)
[2020-06-15] MEDS: FLUTICASONE 50MCG/SPRAY NASAL 16GM EA NOSTRIL SCH (10:15)
[2020-06-15] MEDS: CLINDAMYCIN TOPICAL SCH (10:18)
[2020-06-15] MEDS: HYDROCORTISONE 1% CREAM 30 GM TUBE TOPICAL SCH (10:18)
[2020-06-15] MEDS: TADALAFIL 5 MG PO SCH (10:18)
[2020-06-15] MEDS: MINERAL OIL-WHITE PETROLATUM 120 GM JAR TOPICAL SCH (10:18)
[2020-06-15] MEDS: METRONIDAZOLE 1% TOPICAL SCH (10:18)
[2020-06-15 11:06] VITALS: PULSE 72
[2020-06-15 11:40] VITALS: BP 146/77
--- NOTE | 2020-06-15 23:27 | P.DS ---
Providers Date of admission: 06/13/20 10:04 Expected date of discharge: 06/15/20 Attending physician: Partha Villalobos Primary care physician: Sahil Simms [facility] Course: Chief Complaint: Short of breath History of presenting complaint: Pleasant [address] Sahil Simms. Chronic stable medical conditions include diabetes, hypertension, hyperlipidemia, diabetic peripheral neuropathy, essential tremor, on home oxygen-3 L. For about a week patient is getting progressively more and more short of breath, wheezing. Cough with a lot of white sputum.. Denies fever and chills.. Appetite has remained good.. Symptoms are progressively been getting worse. Admitted with COPD exacerbation. Admitted with COPD exacerbation and acute tracheal bronchitis likely viral. Treated with bronchodilators, steroids, Omnicef. Today-feeling better. Very keen to go home. Respiratory symptoms improved. DuoNeb been nebulizer prescribed. Discussed with the patient. Discussion and discharge planning more than 35 minutes Physical examination: VITAL SIGNS: 97.9, 69, 18, 127/71, 95% on 3 L GENERAL: sitting up, more comfortable EYES: Pupils equal. Conjunctiva normal. HEENT: External appearance of nose and ears normal, oral cavity grossly normal. NECK: JVD not raised; masses not palpable. HEART: First and second heart sounds are normal; no edema. LUNGS: Respiratory rate increased, improved air entry. ABDOMEN: Soft, nontender, liver spleen not palpable, no masses palpable. PSYCH: Alert and oriented x3; mood and affect normal. INVESTIGATIONS, reviewed in the clinical context: White count 9.70 globin 3.9 platelets 145 pressure 4.4 creatinine 0.86 EKG tracing personally reviewed by me-normal sinus rhythm Chest x-ray film, personally reviewed by me-predominant lung montoya, prominent pulmonary artery, no obvious infiltrate, but chronic changes Assessment: -Acute COPD exacerbation in an ex-smoker -Acute tracheal bronchitis likely viral -Diabetes mellitus type 2 on oral hypoglycemic -GERD -Hyperlipidemia -Essential hypertension -BPH -Chronic hypoxic respiratory failure from underlying COPD, on home 3 L at home -Acute hypoxic is pretty failure from COPD exacerbation -Diabetic peripheral neuropathy -BPH -Chronic bilateral tinnitus Disposition: Home Patient Condition at Discharge: Stable Plan - Discharge Summary Discharge Rx Participant: No New Discharge Prescriptions: New Ipratropium-Albuterol Nebulize [Duoneb 0.5 mg-3 mg/3 ml Soln] 3 ml INHALATION TID #90 ml guaiFENesin [Mucinex] 1,200 mg PO Q12HR #90 tablet.er Cefdinir [Omnicef] 300 mg PO BID #9 cap predniSONE 10 mg PO DAILY #30 tab Continue metFORMIN HCL [Glucophage] 500 mg PO BID Pregabalin [Lyrica] 150 mg PO BID Pravastatin Sodium [Pravachol] 40 mg PO HS Losartan [Cozaar] 50 mg PO QAM Chlorthalidone [Hygroton] 12.5 mg PO QAM Albuterol Nebulized [Ventolin Nebulized] 5 mg INHALATION RT-TID Tiotropium [place] [Spiriva] 1 cap INHALATION RT-DAILY Propranolol HCl [Propranolol HCl ER] 60 mg PO HS Ketoconazole 2% Shampoo [Nizoral] 1 applic TOPICAL Q3D Albuterol Sulfate [Proventil Hfa] 1 - 2 puff INHALATION RT-Q4H PRN PRN Reason: Shortness Of Breath Cholecalciferol [Vitamin D3 (25 Mcg = 1000 Iu)] 2,000 unit PO DAILY Cyanocobalamin (Vitamin B-12) [Vitamin B-12] 1,000 mcg PO DAILY Mometasone Furoate [Asmanex] 1 puff INHALATION RT-DAILY Pyridoxine [Vitamin B-6] 50 mg PO DAILY Tadalafil [Cialis] 5 mg PO DAILY Terazosin HCl 10 mg PO DAILY Triamcinolone 0.1% Cream [Kenalog 0.1% Cream] 1 applicatio TOPICAL BID PRN PRN Reason: Rash Clindamycin 1% Foam 1 applic TOPICAL DAILY Selenium Sulfide Shampoo 1 applic TOPICAL Q7D Colloidal Oatmeal [Eucerin Eczema Relief] 1 applic TOPICAL DAILY Desonide [DesOwen .05%] 1 applic TOPICAL BID Fluticasone Nasal [place] [Flonase Nasal [place]] 1 spr EA NOSTRIL BID Metronidazole 1% Cream 1 applic TOPICAL BID Discharge Medication List Chlorthalidone [Hygroton] 12.5 mg PO QAM 07/15/15 [History] Losartan [Cozaar] 50 mg PO QAM 07/15/15 [History] Pravastatin Sodium [Pravachol] 40 mg PO HS 07/15/15 [History] Pregabalin [Lyrica] 150 mg PO BID 07/15/15 [History] metFORMIN HCL [Glucophage] 500 mg PO BID 07/15/15 [History] Albuterol Nebulized [Ventolin Nebulized] 5 mg INHALATION RT-TID 05/18/17 [History] Ketoconazole 2% Shampoo [Nizoral] 1 applic TOPICAL Q3D 05/18/17 [History] Propranolol HCl [Propranolol HCl ER] 60 mg PO HS 05/18/17 [History] Tiotropium [place] [Spiriva] 1 cap INHALATION RT-DAILY 05/18/17 [History] Albuterol Sulfate [Proventil Hfa] 1 - 2 puff INHALATION RT-Q4H PRN 03/23/19 [History] Cholecalciferol [Vitamin D3 (25 Mcg = 1000 Iu)] 2,000 unit PO DAILY 03/23/19 [History] Cyanocobalamin (Vitamin B-12) [Vitamin B-12] 1,000 mcg PO DAILY 03/23/19 [History] Mometasone Furoate [Asmanex] 1 puff INHALATION RT-DAILY 03/23/19 [History] Pyridoxine [Vitamin B-6] 50 mg PO DAILY 03/23/19 [History] Tadalafil [Cialis] 5 mg PO DAILY 03/23/19 [History] Terazosin HCl 10 mg PO DAILY 03/23/19 [History] Triamcinolone 0.1% Cream [Kenalog 0.1% Cream] 1 applicatio TOPICAL BID PRN 03/23/19 [History] Clindamycin 1% Foam 1 applic TOPICAL DAILY 06/13/20 [History] Colloidal Oatmeal [Eucerin Eczema Relief] 1 applic TOPICAL DAILY 06/13/20 [History] Desonide [DesOwen .05%] 1 applic TOPICAL BID 06/13/20 [History] Fluticasone Nasal [place] [Flonase Nasal [place]] 1 spr EA NOSTRIL BID 06/13/20 [History] Metronidazole 1% Cream 1 applic TOPICAL BID 06/13/20 [History] Selenium Sulfide Shampoo 1 applic TOPICAL Q7D 06/13/20 [History] Cefdinir [Omnicef] 300 mg PO BID #9 cap 06/15/20 [Rx] Ipratropium-Albuterol Nebulize [Duoneb 0.5 mg-3 mg/3 ml Soln] 3 ml INHALATION TID #90 ml 08/05/20 [Rx] guaiFENesin [Mucinex] 1,200 mg PO Q12HR #90 tablet.er 06/15/20 [Rx] predniSONE 10 mg PO DAILY #30 tab 06/15/20 [Rx] Follow up Appointment(s)/Referral(s): Morris Mackey DO [Doctor of Osteopathic Medicine] - 06/22/20 2:00 pm Sahil Simms MD [Primary Care Provider] - 06/20/20 11:30 am Patient Instructions/Handouts: COPD (Chronic Obstructive Pulmonary Disease) (DC) Discharge Disposition: HOME SELF-CARE
== END 2020-06-15 12:23 | disposition home or self-care (01) | DRG 190 ==
LOC: EC 08:37 → 3SCARD 10:04
PROVIDERS: ADMIT Hospitalist; ATTEND Hospitalist
DX: J44.1 Chronic obstructive pulmonary disease with (acute) exacerbation (principal); J96.21 Acute and chronic respiratory failure with hypoxia; J44.0 Chronic obstructive pulmonary disease with (acute) lower respiratory infection; J20.9 Acute bronchitis, unspecified; Z87.891 Personal history of nicotine dependence; E11.42 Type 2 diabetes mellitus with diabetic polyneuropathy; E78.5 Hyperlipidemia, unspecified; G25.0 Essential tremor; H91.91 Unspecified hearing loss, right ear; H93.13 Tinnitus, bilateral; I10 Essential (primary) hypertension; K21.9 Gastro-esophageal reflux disease without esophagitis; J20.8 Acute bronchitis due to other specified organisms; N40.0 Benign prostatic hyperplasia without lower urinary tract symptoms; Z79.84 Long term (current) use of oral hypoglycemic drugs; Z79.899 Other long term (current) drug therapy; Z87.11 Personal history of peptic ulcer disease; Z60.2 Problems related to living alone; Z20.828 Contact with and (suspected) exposure to other viral communicable diseases; Z88.1 Allergy status to other antibiotic agents; Z88.0 Allergy status to penicillin; Z80.0 Family history of malignant neoplasm of digestive organs; Z80.49 Family history of malignant neoplasm of other genital organs; Z86.010 Personal history of colon polyps; Z98.42 Cataract extraction status, left eye; Z98.41 Cataract extraction status, right eye
CPT/HCPCS: 36415; 71046; 80053; 83605; 83735; 83880; 84484; 85025; 85610; 85730; 87040; 93005; 94640; 94760; 96374; 96375; 99291

== ENCOUNTER → 2020-08-11 | Outpatient (CLI) | payer MEDICARE, BC ==
[2020-08-11 07:55] LABS: Basophils % (A) 0 %; Eosinophils # (A) 0.2 k/uL (0-0.7); Eosinophils % (A) 3 %; HCT 43.8 % (39.0-53.0); HGB 13.7 gm/dL (13.0-17.5); Lymphocytes # (A) 1.2 k/uL (1.0-4.8); Lymphocytes % (A) 16 %; MCH 28.4 pg (25.0-35.0); MCHC 31.3 g/dL (31.0-37.0); MCV 90.9 fL (80.0-100.0); Mean Platelet Volume 7.5; Monocytes # (A) 0.6 k/uL (0-1.0); Monocytes % (A) 8 %; Neutrophils # (A) 5.4 k/uL (1.3-7.7); Neutrophils % (A) 71 %; Platelet Count 145 k/uL (150-450); RBC 4.83 m/uL (4.30-5.90); RDW 14.1 % (11.5-15.5); WBC 7.6 k/uL (3.8-10.6)
[2020-08-11 08:54] LABS: Erythrocyte Sedimentation Rate 8 mm/hr (0-15)
--- NOTE | 2020-08-11 14:54 | CT ---
EXAMINATION TYPE: CT iac w con DATE OF EXAM: 08/11/2020 COMPARISON: None HISTORY: Right otitis externa CT DLP: 259 mGycm Automated exposure control for dose reduction was used. CONTRAST: Performed with IV Contrast, patient injected with 100 mL of Isovue 300. TECHNIQUE: Axial images 1 mm thick sections. Reconstructed images in the coronal plane FINDINGS: No expansion or erosion of the internal auditory canals is evident. Cerebellar pontine angles appear normal. No abnormal enhancement is evident. There is fluid within the right mastoid air cells inferiorly. No septal destruction is evident. Masto id air cells are otherwise clear. Incus and malleus have normal orientation. There is some fluid with in the right middle ear. Semicircular canals are normal. Cochlea are normal. There is mucosal thickening within the right maxillary sinus. Temporomandibular junctions appear norm al. The scutum are normal bilaterally. IMPRESSION: 1. FLUID WITHIN THE INFERIOR LATERAL RIGHT MASTOID AIR CELLS. CORRELATE FOR MASTOIDITIS. 2. SOME FLUID IS WITHIN THE ATTIC AND RIGHT MIDDLE EAR. CORRELATE FOR OTITIS MEDIA. 3. INTERNAL AUDITORY CANALS APPEAR NORMAL.
== END | disposition home or self-care (01) ==
LOC: RADCTMAIN 07:08
PROVIDERS: ATTEND Otolaryngology
DX: H74.8X1 Other specified disorders of right middle ear and mastoid (principal); H60.91 Unspecified otitis externa, right ear; Z88.1 Allergy status to other antibiotic agents; Z88.0 Allergy status to penicillin
CPT/HCPCS: 85652; 82565; 84520; 85025; 70481; 36415; Q9967

== ENCOUNTER 2021-07-04 09:51 | Inpatient (IN) | payer MEDICARE, BC ==
--- NOTE | 2021-07-04 10:18 | ED ---
GI Bleed HPI - General Chief complaint: GI Bleed Stated complaint: GI Bleed Time Seen by Provider: 07/04/21 09:59 Source: patient, EMS Mode of arrival: EMS Limitations: no limitations - History of Present Illness Initial comments: Patient is a 80-year-old male presenting to emergency Department with complaints of rectal bleeding that started this morning. Patient states he woke up this morning and noticed blood coming from his rectum. He's had 4 bloody bowel movements, describes as bright red. He states he's never had this before. He has had bleeding ulcers in the past but never any rectal bleeding. He denies being on blood thinners. No abdominal pain, nausea or vomiting, he states his bowel movements have been regular. He denies any changes in medications. He denies any chest pain, has some mild shortness of breath but he states this is normal for him as he has COPD, he's on 3 L of home O2. Denies Cough, no fevers or chills. He denies any dizziness or lightheadedness. He has no further complaints at this time. - Related Data Home Medications Medication Instructions Recorded Confirmed Chlorthalidone [Hygroton] 12.5 mg PO QAM 07/15/15 06/13/20 Losartan [Cozaar] 50 mg PO QAM 07/15/15 06/13/20 Pravastatin Sodium [Pravachol] 40 mg PO HS 07/15/15 06/13/20 Pregabalin [Lyrica] 150 mg PO BID 07/15/15 06/13/20 metFORMIN HCL [Glucophage] 500 mg PO BID 07/15/15 06/13/20 Albuterol Nebulized [Ventolin 5 mg INHALATION RT-TID 05/18/17 06/13/20 Nebulized] Ketoconazole 2% Shampoo [Nizoral] 1 applic TOPICAL Q3D 05/18/17 06/13/20 Propranolol HCl [Propranolol HCl 60 mg PO HS 05/18/17 06/13/20 ER] Tiotropium [place] [Spiriva] 1 cap INHALATION RT-DAILY 05/18/17 06/13/20 Albuterol Sulfate [Proventil Hfa] 1 - 2 puff INHALATION RT-Q4H PRN 03/23/19 06/13/20 Cholecalciferol [Vitamin D3 (25 2,000 unit PO DAILY 03/23/19 06/13/20 Mcg = 1000 Iu)] Cyanocobalamin (Vitamin B-12) 1,000 mcg PO DAILY 03/23/19 06/13/20 [Vitamin B-12] Mometasone Furoate [Asmanex] 1 puff INHALATION RT-DAILY 03/23/19 06/13/20 Pyridoxine [Vitamin B-6] 50 mg PO DAILY 03/23/19 06/13/20 Tadalafil [Cialis] 5 mg PO DAILY 03/23/19 06/13/20 Terazosin HCl 10 mg PO DAILY 03/23/19 06/13/20 Triamcinolone 0.1% Cream [Kenalog 1 applicatio TOPICAL BID PRN 03/23/19 06/13/20 0.1% Cream] Clindamycin 1% Foam 1 applic TOPICAL DAILY 06/13/20 06/13/20 Colloidal Oatmeal [Eucerin Eczema 1 applic TOPICAL DAILY 06/13/20 06/13/20 Relief] Desonide [DesOwen .05%] 1 applic TOPICAL BID 06/13/20 06/13/20 Fluticasone Nasal [place] [Flonase 1 spr EA NOSTRIL BID 06/13/20 06/13/20 Nasal [place]] Metronidazole 1% Cream 1 applic TOPICAL BID 06/13/20 06/13/20 Selenium Sulfide Shampoo 1 applic TOPICAL Q7D 06/13/20 06/13/20 Previous Rx's Medication Instructions Recorded Cefdinir [Omnicef] 300 mg PO BID #9 cap 06/15/20 Ipratropium-Albuterol Nebulize 3 ml INHALATION TID #90 ml 06/15/20 [Duoneb 0.5 mg-3 mg/3 ml Soln] guaiFENesin [Mucinex] 1,200 mg PO Q12HR #90 tablet.er 06/15/20 predniSONE 10 mg PO DAILY #30 tab 06/15/20 Allergies Allergy/AdvReac Type Severity Reaction Status Date / Time ciprofloxacin [From Cipro] Allergy Rash/Hives Verified 07/04/21 09:56 ciprofloxacin HCl Allergy Rash/Hives Verified 07/04/21 09:56 [From Cipro] Penicillins Allergy Rash/Hives Verified 07/04/21 09:56 Review of Systems ROS Statement: Those systems with pertinent positive or pertinent negative responses have been documented in the HPI. ROS Other: All systems not noted in ROS Statement are negative. Past Medical History Past Medical History: COPD, Diabetes Mellitus, Eye Disorder, GERD/Reflux, GI Bleed, Hearing Disorder / Deafness, Hyperlipidemia, Hypertension, Pneumonia, Prostate Disorder, Respiratory Disorder, Skin Disorder Additional Past Medical History / Comment(s): Chronic hypoxic respiratory failure, home oxygen at 3L/[place] ATC, bronchitis, NIDDM type II, neuropathy bilateral feet, essential tremors, BPH, occasional dermatitis since [place], [place] bilaterally and R ear recurrent infections, bilateral tinnitis, gastric ulcers, lower GI bleed, small hiatal hernia, past admission for colitis/sepsis-pt does not recall this. History of Any Multi-Drug Resistant Organisms: None Reported Past Surgical History: Hernia Repair Additional Past Surgical History / Comment(s): Incisional hernias x2, bilateral cataract removals, colonoscopy with benign polyp, vasectomy Past Anesthesia/Blood Transfusion Reactions: No Reported Reaction Past Psychological History: No Psychological Hx Reported Smoking Status: Former smoker Past Alcohol Use History: None Reported Past Drug Use History: None Reported - Past Family History Mother Family Medical History: No Reported History Additional Family Medical History / Comment(s): Mother was healthy. Father Family Medical History: Cancer Additional Family Medical History / Comment(s): COLON Sister(s) Family Medical History: Cancer Additional Family Medical History / Comment(s): REPRODUCTIVE General Exam - General Exam Comments Initial Comments: GENERAL: Patient is well-developed and well-nourished. Patient is nontoxic and in no acute distress. HEAD: Atraumatic, normocephalic. EYES: Pupils equal round and reactive to light, extraocular movements intact, sclera anicteric, conjunctiva are normal. Eyelids were unremarkable. ENT: TMs normal, nares patent, oropharynx clear without exudates. Moist mucous membranes. NECK: Normal range of motion, supple without lymphadenopathy or JVD. LUNGS: Unlabored respirations. Breath sounds clear to auscultation bilaterally and equal. No wheezes rales or rhonchi. HEART: Regular rate and rhythm without murmurs, rubs or gallops. ABDOMEN: Soft, nontender, normoactive bowel sounds. No guarding, no rebound. No masses appreciated. : Deferred MUSCULOSKELETAL: Normal extremities with adequate strength and normal range of motion, no pitting or edema. No clubbing or cyanosis. NEUROLOGICAL: Patient is alert and oriented x 3. Motor and sensory are also intact. Cranial nerves II through XII grossly intact. Symmetrical smile. Normal speech, normal gait. PSYCH: Normal mood, normal affect. SKIN: Warm, Dry, normal turgor, no rashes or lesions noted. Limitations: no limitations Rectal exam: Present: normal rectal tone, heme (+) stool, bloody stool, hemorrhoids (Very small external hemorrhoid present) Course Vital Signs 07/04/21 07/04/21 07/04/21 09:52 10:50 11:02 Temperature 98.2 F Pulse Rate 73 80 Respiratory 18 18 Rate Blood Pressure 85/60 105/54 98/63 O2 Sat by Pulse 93 L 98 Oximetry Medical Decision Making - Medical Decision Making Patient is a 80-year-old male with history of COPD, presenting for rectal bleeding that started this morning, is bright red in nature. He's had 4 bloody episodes. No abdominal pain, nausea or vomiting, no other complaints today. Exam reveals no abdominal tenderness, no other acute findings. He does have blood on rectal exam. Initial blood pressure was 85/60 however upon recheck, is 112/62. Denies any lightheadedness or dizziness. Patient's labs show a stable hemoglobin at 13, rest of labs are within normal limits. Patient has had a bloody bowel movement as being here in the ER. He continues to be pain-free. Patient will be admitted for GI bleed, patient started by Dr. Joyner, with GI on consult. Patient given Protonix. Patient discussed with Dr. Hsieh. - Lab Data Result diagrams: 07/04/21 10:18 07/04/21 10:18 Lab Results 07/04/21 07/04/21 07/04/21 Range/Units 10:18 10:18 10:18 WBC 8.2 (3.8-10.6) k/uL RBC 4.47 (4.30-5.90) m/uL Hgb 13.7 (13.0-17.5) gm/dL Hct 42.2 (39.0-53.0) % MCV 94.4 (80.0-100.0) fL MCH 30.5 (25.0-35.0) pg MCHC 32.3 (31.0-37.0) g/dL RDW 13.5 (11.5-15.5) % Plt Count 173 (150-450) k/uL MPV 7.6 Neutrophils % 69 % Lymphocytes % 15 % Monocytes % 8 % Eosinophils % 5 % Basophils % 0 % Neutrophils # 5.6 (1.3-7.7) k/uL Lymphocytes # 1.3 (1.0-4.8) k/uL Monocytes # 0.7 (0-1.0) k/uL Eosinophils # 0.4 (0-0.7) k/uL Basophils # 0.0 (0-0.2) k/uL PT 10.3 (9.0-12.0) sec INR 1.0 (<1.2) APTT 22.7 (22.0-30.0) sec Sodium (137-145) mmol/L Potassium (3.5-5.1) mmol/L Chloride (98-107) mmol/L Carbon Dioxide (22-30) mmol/L Anion Gap mmol/L BUN (9-20) mg/dL Creatinine (0.66-1.25) mg/dL Est GFR (CKD-EPI)AfAm (>60 ml/min/1.73 sqM) Est GFR (CKD-EPI)NonAf (>60 ml/min/1.73 sqM) Glucose (74-99) mg/dL Plasma Lactic Acid [place] (0.7-2.0) mmol/L Calcium (8.4-10.2) mg/dL Magnesium (1.6-2.3) mg/dL Total Bilirubin (0.2-1.3) mg/dL AST (17-59) U/L ALT (4-49) U/L Alkaline Phosphatase (38-126) U/L Troponin I (0.000-0.034) ng/mL Total Protein (6.3-8.2) g/dL Albumin (3.5-5.0) g/dL Stool Occult Blood Positive (Negative) Blood Type Blood Type Recheck Bld Type Recheck Status Antibody Screen Spec Expiration Date 07/04/21 07/04/21 07/04/21 Range/Units 10:18 10:18 10:18 WBC (3.8-10.6) k/uL RBC (4.30-5.90) m/uL Hgb (13.0-17.5) gm/dL Hct (39.0-53.0) % MCV (80.0-100.0) fL MCH (25.0-35.0) pg MCHC (31.0-37.0) g/dL RDW (11.5-15.5) % Plt Count (150-450) k/uL MPV Neutrophils % % Lymphocytes % % Monocytes % % Eosinophils % % Basophils % % Neutrophils # (1.3-7.7) k/uL Lymphocytes # (1.0-4.8) k/uL Monocytes # (0-1.0) k/uL Eosinophils # (0-0.7) k/uL Basophils # (0-0.2) k/uL PT (9.0-12.0) sec INR (<1.2) APTT (22.0-30.0) sec Sodium 137 (137-145) mmol/L Potassium 4.3 (3.5-5.1) mmol/L Chloride 97 L (98-107) mmol/L Carbon Dioxide 35 H (22-30) mmol/L Anion Gap 5 mmol/L BUN 27 H (9-20) mg/dL Creatinine 1.05 (0.66-1.25) mg/dL Est GFR (CKD-EPI)AfAm 79 (>60 ml/min/1.73 sqM) Est GFR (CKD-EPI)NonAf 68 (>60 ml/min/1.73 sqM) Glucose 112 H (74-99) mg/dL Plasma Lactic Acid [place]to 1.6 (0.7-2.0) mmol/L Calcium 8.8 (8.4-10.2) mg/dL Magnesium 1.9 (1.6-2.3) mg/dL Total Bilirubin 0.6 (0.2-1.3) mg/dL AST 30 (17-59) U/L ALT 18 (4-49) U/L Alkaline Phosphatase 73 (38-126) U/L Troponin I <0.012 (0.000-0.034) ng/mL Total Protein 5.9 L (6.3-8.2) g/dL Albumin 3.5 (3.5-5.0) g/dL Stool Occult Blood (Negative) Blood Type Blood Type Recheck Bld Type Recheck Status Antibody Screen Spec Expiration Date 07/04/21 Range/Units 10:18 WBC (3.8-10.6) k/uL RBC (4.30-5.90) m/uL Hgb (13.0-17.5) gm/dL Hct (39.0-53.0) % MCV (80.0-100.0) fL MCH (25.0-35.0) pg MCHC (31.0-37.0) g/dL RDW (11.5-15.5) % Plt Count (150-450) k/uL MPV Neutrophils % % Lymphocytes % % Monocytes % % Eosinophils % % Basophils % % Neutrophils # (1.3-7.7) k/uL Lymphocytes # (1.0-4.8) k/uL Monocytes # (0-1.0) k/uL Eosinophils # (0-0.7) k/uL Basophils # (0-0.2) k/uL PT (9.0-12.0) sec INR (<1.2) APTT (22.0-30.0) sec Sodium (137-145) mmol/L Potassium (3.5-5.1) mmol/L Chloride (98-107) mmol/L Carbon Dioxide (22-30) mmol/L Anion Gap mmol/L BUN (9-20) mg/dL Creatinine (0.66-1.25) mg/dL Est GFR (CKD-EPI)AfAm (>60 ml/min/1.73 sqM) Est GFR (CKD-EPI)NonAf (>60 ml/min/1.73 sqM) Glucose (74-99) mg/dL Plasma Lactic Acid [place] (0.7-2.0) mmol/L Calcium (8.4-10.2) mg/dL Magnesium (1.6-2.3) mg/dL Total Bilirubin (0.2-1.3) mg/dL AST (17-59) U/L ALT (4-49) U/L Alkaline Phosphatase (38-126) U/L Troponin I (0.000-0.034) ng/mL Total Protein (6.3-8.2) g/dL Albumin (3.5-5.0) g/dL Stool Occult Blood (Negative) Blood Type A Positive Blood Type Recheck A Pos Bld Type Recheck Status No Antibody Screen NEGATIVE Spec Expiration Date 07/07/2021 - 7981 - EKG Data EKG Comments: Sinus rhythm with premature atrial complexes, left axis deviation, no signs of acute ST segment elevation. Ventricular rate 69. Over 126, QT 404. Similar in nature to previous EKG on 06/13/2020. Disposition Clinical Impression: GI bleed Disposition: ADMITTED IP TO THIS HOSP Condition: Stable Decision Date: 07/04/21 Decision Time: 11:39
[2021-07-04 10:53] LABS: Basophils % (A) 0 %; Eosinophils # (A) 0.4 k/uL (0-0.7); Eosinophils % (A) 5 %; HCT 42.2 % (39.0-53.0); HGB 13.7 gm/dL (13.0-17.5); Lymphocytes # (A) 1.3 k/uL (1.0-4.8); Lymphocytes % (A) 15 %; MCH 30.5 pg (25.0-35.0); MCHC 32.3 g/dL (31.0-37.0); MCV 94.4 fL (80.0-100.0); Mean Platelet Volume 7.6; Monocytes # (A) 0.7 k/uL (0-1.0); Monocytes % (A) 8 %; Neutrophils # (A) 5.6 k/uL (1.3-7.7); Neutrophils % (A) 69 %; Platelet Count 173 k/uL (150-450); RBC 4.47 m/uL (4.30-5.90); RDW 13.5 % (11.5-15.5); WBC 8.2 k/uL (3.8-10.6)
[2021-07-04 11:14] LABS: Albumin 3.5 g/dL (3.5-5.0); Calcium 8.8 mg/dL (8.4-10.2); Magnesium 1.9 mg/dL (1.6-2.3); Potassium 4.3 mmol/L (3.5-5.1); Total Bilirubin 0.6 mg/dL (0.2-1.3); Total Protein 5.9 g/dL (6.3-8.2)
[2021-07-04 11:17] LABS: Partial Thromboplastin Time 22.7 sec (22.0-30.0); Prothrombin Time 10.3 sec (9.0-12.0)
[2021-07-04] MEDS ORDERED: ONDANSETRON 4 MG/2 ML VIAL IVP PRN (11:36)
[2021-07-04] MEDS ORDERED: NALOXONE 0.4 MG/ML 1 ML VIAL IV PRN (11:37)
[2021-07-04] MEDS: PANTOPRAZOLE 40 MG/10 ML VIAL IVP SCH (11:50)
[2021-07-04] MEDS: INSULIN ASPART (NovoLOG) 100 UNIT/ML VIAL SQ SCH ×2 (12:55→17:43)
[2021-07-04 14:29] LABS: Basophils % (A) 0 %; Eosinophils # (A) 0.4 k/uL (0-0.7); Eosinophils % (A) 5 %; HGB 11.9 gm/dL (13.0-17.5); Lymphocytes # (A) 1.2 k/uL (1.0-4.8); Lymphocytes % (A) 14 %; MCH 31.4 pg (25.0-35.0); MCHC 33.2 g/dL (31.0-37.0); MCV 94.8 fL (80.0-100.0); Mean Platelet Volume 7.7; Monocytes # (A) 0.6 k/uL (0-1.0); Monocytes % (A) 7 %; Neutrophils # (A) 6.5 k/uL (1.3-7.7); Neutrophils % (A) 72 %; Platelet Count 162 k/uL (150-450); RDW 13.8 % (11.5-15.5)
[2021-07-04] MEDS ORDERED: IPRATROPIUM-ALBUTEROL 3 ML NEB INHALATION PRN (15:27)
--- NOTE | 2021-07-04 15:34 | P.CONS ---
History of Present Illness - Reason for Consult Consult date: 07/04/21 Rectal bleeding Requesting physician: Saúl Joyner - Chief Complaint Rectal bleeding - History of Present Illness This a pleasant 80-year-old white male who presented to the emergency department after having rectal bleeding this morning. His past medical history includes COPD oxygen dependent, diabetes mellitus, GERD, hearing disorder, hyperlipidemia, hypertension, prostate disorder. Patient states he had 3-4 episodes of rectal bleeding this morning that were painless, with clots. He denies any previous history of rectal bleeding or GI bleed. He does state that he had a history of ulcer in the past. He denies any blood thinners or NSAIDs use other than occasional. Last colonoscopy was approximately 15 years ago. He is denying any abdominal pain, nausea, or vomiting. He labs WBC 8, hemoglobin 13.7, hematocrit 42, platelet count 173,000, and mild elevation in his P1 at 27, total bilirubin 0.6, alkaline phosphatase 73, AST 30, ALT 18. The patient s tates he has chronic shortness of breath and dyspnea on exertion he is oxygen dependent and follows with Dr. Mackey. On exam he does seem that he is working hard to breathe, but his daughter states that his pretty normal for him. Review of Systems REVIEW OF SYSTEMS: CARDIOPULMONARY: No chest pain. Patient states he has chronic shortness of breath and dyspnea on exertion, he is oxygen dependent at home and follows with Dr. Mackey. Gastrointestinal: No abdominal pain. No nausea or vomiting. No hematemesis, coffee-ground emesis. Rectal bleeding 6 with clots. Painless.. GENITOURINARY: No dysuria or hematuria. MUSCULOSKELETAL: Reports normal range of motion., Joint pain. SKIN: No rashes. No jaundice. ENDOCRINE: No chills, fevers. No excessive weight gain or loss. No polydipsia or polyuria. PSYCHIATRIC: Unremarkable. NEUROLOGY: No change in mental status. Denies dizziness, headache. ENT: Vision unremarkable. CONSTITUTIONAL: No recent weight loss. No fever, chills, night sweats. Past Medical History Past Medical History: COPD, Diabetes Mellitus, Eye Disorder, GERD/Reflux, GI Bl eed, Hearing Disorder / Deafness, Hyperlipidemia, Hypertension, Pneumonia, Prostate Disorder, Respiratory Disorder, Skin Disorder Additional Past Medical History / Comment(s): Chronic hypoxic respiratory failure, home oxygen at 3L/[place] ATC, bronchitis, NIDDM type II, neuropathy bilateral feet, essential tremors, BPH, occasional dermatitis since [place], [place] bilaterally and R ear recurrent infections, bilateral tinnitis, gastric ulcers, lower GI bleed, small hiatal hernia, past admission for colitis/sepsis-pt does not recall this. History of Any Multi-Drug Resistant Organisms: None Reported Past Surgical History: Hernia Repair Additional Past Surgical History / Comment(s): Incisional hernias x2, bilateral cataract removals, colonoscopy with benign polyp, vasectomy Past Anesthesia/Blood Transfusion Reactions: No Reported Reaction Past Psychological History: No Psychological Hx Reported Smoking Status: Former smoker Past Alcohol Use History: None Reported Past Drug Use History: None Reported - Past Family History Mother Family Medical History: No Reported History Additional Family Medical History / Comment(s): Mother was healthy. Father Family Medical History: Cancer Additional Family Medical History / Comment(s): COLON Sister(s) Family Medical History: Cancer Additional Family Medical History / Comment(s): REPRODUCTIVE Medications and Allergies Home Medications Medication Instructions Recorded Confirmed Type Chlorthalidone [Hygroton] 12.5 mg PO DAILY 07/15/15 07/04/21 History Losartan [Cozaar] 50 mg PO DAILY 07/15/15 07/04/21 History Pravastatin Sodium [Pravachol] 40 mg PO HS 07/15/15 07/04/21 History Pregabalin [Lyrica] 150 mg PO BID 07/15/15 07/04/21 History metFORMIN HCL [Glucophage] 500 mg PO BID 07/15/15 07/04/21 History Albuterol Nebulized [Ventolin 5 mg INHALATION RT-Q4H 05/18/17 07/04/21 History Nebulized] Ketoconazole 2% Shampoo [Nizoral] 1 applic TOPICAL DAILY 05/18/17 07/04/21 History Propranolol HCl [Propranolol HCl 60 mg PO HS 05/18/17 07/04/21 History ER] Albuterol Sulfate [Proventil Hfa] 1 - 2 puff INHALATION RT-BID 03/23/19 07/04/21 History Cyanocobalamin (Vitamin B-12) 1,000 mcg PO DAILY 03/23/19 07/04/21 History [Vitamin B-12] Mometasone Furoate [Asmanex] 2 puff INHALATION RT-BID 03/23/19 07/04/21 History Tadalafil [Cialis] 5 mg PO DAILY 03/23/19 07/04/21 History Terazosin HCl 10 mg PO DAILY 03/23/19 07/04/21 History Desonide [DesOwen .05%] 1 applic TOPICAL BID PRN 06/13/20 07/04/21 History Fluticasone Nasal [place] [Flonase 1 spr EA NOSTRIL BID 06/13/20 07/04/21 History Nasal [place]] Selenium Sulfide Shampoo 1 applic TOPICAL MOWEFR 06/13/20 07/04/21 History Clindamycin Phosphate 1 applic TOPICAL BID 07/04/21 07/04/21 History Eucerin Cream 1 applic TOPICAL DAILY 07/04/21 07/04/21 History Pyridoxine HCl (Vitamin B6) 25 mg PO DAILY 07/04/21 07/04/21 History [Pyridoxine HCl] Tiotropium [place] [Spiriva 2 puff INHALATION RT-DAILY 07/04/21 07/04/21 History Respimat] Triamcinolone 0.1% Ointment 1 applic TOPICAL Q12H PRN 07/04/21 07/04/21 History [Kenalog 0.1% Ointment] Allergies Allergy/AdvReac Type Severity Reaction Status Date / Time ciprofloxacin [From Cipro] Allergy Rash/Hives Verified 07/04/21 13:12 ciprofloxacin HCl Allergy Rash/Hives Verified 07/04/21 13:12 [From Cipro] Penicillins Allergy Rash/Hives Verified 07/04/21 13:12 tramadol Allergy Unknown Verified 07/04/21 13:12 venlafaxine [From Effexor] Allergy Unknown Verified 07/04/21 13:12 Physical Exam Vitals: Vital Signs Temp Pulse Resp BP Pulse Ox 07/04/21 12:55 74 18 123/66 98 07/04/21 11:02 80 18 98/63 98 07/04/21 10:50 105/54 07/04/21 09:52 98.2 F 73 18 85/60 93 L Intake and Output 07/03/21 07/04/21 07/04/21 22:59 06:59 14:59 Other: Weight 80.286 kg General appearance: The patient is alert, oriented, appears in no acute distress. HET: Head is normocephalic and atraumatic. Conjunctiva pink. Sclera anicteric. Neck: Supple without lymphadenopathy. Trachea midline. Heart: S1 S2. Regular rate and rhythm. Lungs: Clear to auscultation. Normal expansion, breathing heavy. Abdomen: Soft, obese, nontender,, nondistended with bowel sounds. No guarding or rigidity. Skin: No rashes. No jaundice. Extremities: Normal skin color and turgor. No pedal edema. Neurological: No focal deficits. Alert and oriented 3.. Results CBC & Chem 7: 07/04/21 14:19 07/04/21 10:18 Labs: Abnormal Lab Results - Last 24 Hours (Table) 07/04/21 Range/Units 10:18 Chloride 97 L (98-107) mmol/L Carbon Dioxide 35 H (22-30) mmol/L BUN 27 H (9-20) mg/dL Glucose 112 H (74-99) mg/dL Total Protein 5.9 L (6.3-8.2) g/dL Assessment and Plan (1) GI bleed Narrative/Plan: 80-year-old male who presented to the emergency department with complaints of multiple episodes of bright red blood per rectum. States he was having bright red blood with clots which was painless. Denies any abdominal pain, nausea, or vomiting. Her last colonoscopy was approximately 15 years ago. He does state he has a history of an ulcer. He is not on any blood thinners or does not take NSAIDs regularly. On admission his hemoglobin was stable at 13.7. He does have a history of COPD and is oxygen dependent follows with Dr. Mackey. Likely dealing with a diverticular bleed however other possible etiologies need to be considered. Patient also has history of peptic ulcer disease. Will proceed with EGD and colonoscopy if cleared by pulmonology. Current Visit: Yes Status: Acute Code(s): K92.2 - GASTROINTESTINAL HEMORRHAGE, UNSPECIFIED SNOMED Code(s): 01810166 (2) COPD (chronic obstructive pulmonary disease) Narrative/Plan: Pulmonology consulted to evaluate patient for clearance for EGD and colonoscopy. Patient follows with Dr. Mackey. He is oxygen dependent and is having some labored respirations. Current Visit: Yes Status: Acute Code(s): J44.9 - CHRONIC OBSTRUCTIVE PULMONARY DISEASE, UNSPECIFIED SNOMED Code(s): 54803748 Plan: 1. Continue symptomatic and supportive care 2. Clear liquid diet 3. Daily CBC and transfuse for hemoglobin less than 7 4. Protonix 40 mg daily 5. Will consult pulmonology, as patient is known to him for clearance for EGD and colonoscopy 6. Plan to proceed with the EGD and colonoscopy if cleared by pulmonology on . Thank you for this consultation, we will continue to follow closely. Dr. Irma Kaiser I agree with the dictator's note, documented as a scribe by Apolonia Winchester.
--- NOTE | 2021-07-04 15:53 | XR ---
EXAMINATION TYPE: XR chest 1V portable DATE OF EXAM: 07/04/2021 COMPARISON: June 13, 2020 HISTORY: Shortness of breath TECHNIQUE: Frontal and lateral views of the chest are obtained. FINDINGS: Scattered senescent parenchymal changes noted. Hyperinflation compatible with COPD. No evidence for infiltrate. No evidence for atelectasis. Heart size is stable. Mediastinal structures are stable and grossly unremarkable. No evidence for hilar prominence. Degenerative changes dorsal spine. IMPRESSION: 1. No evidence for acute pulmonary disease.
[2021-07-04] MEDS ORDERED: IPRATROPIUM-ALBUTEROL 3 ML NEB INHALATION SCH (16:00)
--- NOTE | 2021-07-04 16:07 | P.HPIM ---
History of Present Illness H&P Date: 07/04/21 Chief Complaint: bloody stools 80 year old man with history of COPD with chronic respiratory failure of 3L NC, DM, HTN, HLD, GERD presented with bloody stools. Patient says he was in his usual state of health, but this morning upon waking he had several bloody bowel movements which filled the toilet bowl and contained blood clots. This happened several more times for a total of 4 times at home, which prompted his admission to the ER. He denied any symptoms of n/v, cp, palps, cough, dyspnea worse than baseline, abd pain, dyschezia, tenesmus, dysuria, numbness/weakness. Also denies fevers, chills, weight loss, DEAN. In the ER, patient was hypotensive, but recovered with IVF. Afebrile, otherwise HDS. He had an additional 4-5 bloody BMs while in the ER. Lab work showed normal CBC, baseline BMP, normal LFTs, normal coags. +FOBT. Review of Systems All Systems reviewed and pertinent positives and negatives noted in HPI, all other symptoms are negative Past Medical History Past Medical History: COPD, Diabetes Mellitus, Eye Disorder, GERD/Reflux, GI Bleed, Hearing Disorder / Deafness, Hyperlipidemia, Hypertension, Pneumonia, Prostate Disorder, Respiratory Disorder, Skin Disorder Additional Past Medical History / Comment(s): Chronic hypoxic respiratory failure, home oxygen at 3L/NC ATC, bronchitis, NIDDM type II, neuropathy bilateral feet, essential tremors, BPH, occasional dermatitis since [place], GRIND[place]ONE bilaterally and R ear recurrent infections, bilateral tinnitis, gastric ulcers, lower GI bleed, small hiatal hernia, past admission for colitis/sepsis-pt does not recall this. History of Any Multi-Drug Resistant Organisms: None Reported Past Surgical History: Hernia Repair Additional Past Surgical History / Comment(s): Incisional hernias x2, bilateral cataract removals, colonoscopy with benign polyp, vasectomy Past Anesthesia/Blood Transfusion Reactions: No Reported Reaction Past Psychological History: No Psychological Hx Reported Smoking Status: Former smoker Past Alcohol Use History: None Reported Past Drug Use History: None Reported - Past Family History Mother Family Medical History: No Reported History Additional Family Medical History / Comment(s): Mother was healthy. Father Family Medical History: Cancer Additional Family Medical History / Comment(s): COLON Sister(s) Family Medical History: Cancer Additional Family Medical History / Comment(s): REPRODUCTIVE Medications and Allergies Home Medications Medication Instructions Recorded Confirmed Type Chlorthalidone [Hygroton] 12.5 mg PO DAILY 07/15/15 07/04/21 History Losartan [Cozaar] 50 mg PO DAILY 07/15/15 07/04/21 History Pravastatin Sodium [Pravachol] 40 mg PO HS 07/15/15 07/04/21 History Pregabalin [Lyrica] 150 mg PO BID 07/15/15 07/04/21 History metFORMIN HCL [Glucophage] 500 mg PO BID 07/15/15 07/04/21 History Albuterol Nebulized [Ventolin 5 mg INHALATION RT-Q4H 05/18/17 07/04/21 History Nebulized] Ketoconazole 2% Shampoo [Nizoral] 1 applic TOPICAL DAILY 05/18/17 07/04/21 History Propranolol HCl [Propranolol HCl 60 mg PO HS 05/18/17 07/04/21 History ER] Albuterol Sulfate [Proventil Hfa] 1 - 2 puff INHALATION RT-BID 03/23/19 07/04/21 History Cyanocobalamin (Vitamin B-12) 1,000 mcg PO DAILY 03/23/19 07/04/21 History [Vitamin B-12] Mometasone Furoate [Asmanex] 2 puff INHALATION RT-BID 03/23/19 07/04/21 History Tadalafil [Cialis] 5 mg PO DAILY 03/23/19 07/04/21 History Terazosin HCl 10 mg PO DAILY 03/23/19 07/04/21 History Desonide [DesOwen .05%] 1 applic TOPICAL BID PRN 06/13/20 07/04/21 History Fluticasone Nasal [place] [Flonase 1 spr EA NOSTRIL BID 06/13/20 07/04/21 History Nasal [place]] Selenium Sulfide Shampoo 1 applic TOPICAL MOWEFR 06/13/20 07/04/21 History Clindamycin Phosphate 1 applic TOPICAL BID 07/04/21 07/04/21 History Eucerin Cream 1 applic TOPICAL DAILY 07/04/21 07/04/21 History Pyridoxine HCl (Vitamin B6) 25 mg PO DAILY 07/04/21 07/04/21 History [Pyridoxine HCl] Tiotropium [place] [Spiriva 2 puff INHALATION RT-DAILY 07/04/21 07/04/21 History Respimat] Triamcinolone 0.1% Ointment 1 applic TOPICAL Q12H PRN 07/04/21 07/04/21 History [Kenalog 0.1% Ointment] Allergies Allergy/AdvReac Type Severity Reaction Status Date / Time ciprofloxacin [From Cipro] Allergy Rash/Hives Verified 07/04/21 13:12 ciprofloxacin HCl Allergy Rash/Hives Verified 07/04/21 13:12 [From Cipro] Penicillins Allergy Rash/Hives Verified 07/04/21 13:12 tramadol Allergy Unknown Verified 07/04/21 13:12 venlafaxine [From Effexor] Allergy Unknown Verified 07/04/21 13:12 Physical Exam Osteopathic Statement: *. No significant issues noted on an osteopathic st ructural exam other than those noted in the History and Physical/Consult. Vitals: Vital Signs Temp Pulse Resp BP Pulse Ox 07/04/21 13:54 82 18 116/63 97 07/04/21 12:55 74 18 123/66 98 07/04/21 11:02 80 18 98/63 98 07/04/21 10:50 105/54 07/04/21 09:52 98.2 F 73 18 85/60 93 L Intake and Output 07/04/21 07/04/21 07/04/21 06:59 14:59 22:59 Other: Weight 80.286 kg Gen: awake, alert HEENT: normocephalic, atraumatic, good hearing acuity, moist mucous membranes Resp: CTAB, diminished air exchange CVS: good distal perfusion x 4, RRR, no murmurs GI: soft, NTTP, ND : no SPT, no CVAT, tom catheter not present MSK: no pitting edema, no clubbing Neuro: non-focal, moving all extremities Psych: cooperative, euthymic mood Results CBC & Chem 7: 07/04/21 14:19 07/04/21 10:18 Labs: Abnormal Lab Results - Last 24 Hours (Table) 07/04/21 07/04/21 Range/Units 10:18 14:19 RBC 3.80 L (4.30-5.90) m/uL Hgb 11.9 L (13.0-17.5) gm/dL Hct 36.0 L (39.0-53.0) % Chloride 97 L (98-107) mmol/L Carbon Dioxide 35 H (22-30) mmol/L BUN 27 H (9-20) mg/dL Glucose 112 H (74-99) mg/dL Total Protein 5.9 L (6.3-8.2) g/dL Assessment and Plan Assessment: Lower GI bleed -Admit to observation, telemetry -GI consult for colonoscopy -Clear liquid diet with plans to prep -Trend CBC -Maintain active type and screen -Maintain large-bore IV access -Close monitoring of hemodynamics COPD without exacerbation Chronic respiratory failure Diabetes type 2 Hypertension Hyperlipidemia GERD with esophagitis -Oxygen when necessary -Pulmonology consulted -Home medications reviewed and reconciled Patient is a no code DVT prophylaxis is contraindicated Daughter is DURABLE POWER OF COMPLIANCE [employer]
--- NOTE | 2021-07-04 16:54 | P.CNPUL ---
History of Present Illness Consult date: 07/04/21 Requesting physician: Apolonia Huffman Reason for consult: dyspnea, other Chief complaint: Bright blood per rectum History of present illness: This is a 80-year-old white male patient with known history of severe stage IV COPD with FEV1 of 0.35 L or 12% of predicted on home oxygen usually wears 3 L, normally sees Dr. Mackey in the pulmonary clinic for his COPD. Patient is a former smoker, he quit smoking over 25 years ago. Other medical history is significant for hypertension, hyperlipidemia, diabetes mellitus type 2, BPH, chronic dermatitis, patient is hard of hearing, previous history of GI bleeding and a gastric ulcer. He came into the emergency department on 07/04/2021 for evaluation of several episodes of bright red blood per rectum that started this morning. Patient states he had a total of 6 episodes thus far today, with large amount of bright red rectal bleeding. He woke up this morning to blood coming from his rectum. He is not on any blood thinners. He denies any abdominal pain, no nausea or vomiting. He states his bowel movements have been regular. Denied any lightheadedness, denied any dizziness, no chest pain, he does admit to mild shortness of breath, not significantly worse from his baseline. Denies any cough, no fever or chills. Blood work in the emergency department revealed a hemoglobin of 13.7, white blood cell count of 8.2, platelet count is 173, INR is 1.0, sodium is 137, potassium is 4.3, chloride is 97, CO2 is 35, B1 is 27 creatinine is 1.05, lactic acid is 1.6, magnesium was 1.9, troponin is less than 0.012, stool for occult blood was positive. Patient is usually maintained on Spiriva, Ventolin inhaler on the regular basis. Patient is seen in the emergency department, he is mildly dyspneic, but appears to be in no acute distress, he is on 4 L of oxygen pulse ox of 98%, blood pressure is 116/63, he is in sinus mechanism with a rate of 82, he is afebrile. He is mildly dyspneic and wheezy on today's exam. Abdomen is soft, no hematemesis, he is being considered for endoscopic evaluation with colonoscopy,we were asked to see the patient for pulmonary clearance for colonoscopy Review of Systems All systems: negative Constitutional: Denies chills, Denies fever Eyes: denies blurred vision, denies pain Ears, nose, mouth and throat: Denies headache, Denies sore throat Cardiovascular: Denies chest pain, Denies shortness of breath Respiratory: Reports dyspnea, Denies cough Gastrointestinal: Reports hematochezia, Denies abdominal pain, Denies diarrhea, Denies nausea, Denies vomiting Musculoskeletal: Denies myalgias Integumentary: Denies pruritus, Denies rash Neurological: Denies numbness, Denies weakness Psychiatric: Denies anxiety, Denies depression Endocrine: Denies fatigue, Denies weight change Past Medical History Past Medical History: COPD, Diabetes Mellitus, Eye Disorder, GERD/Reflux, GI Bleed, Hearing Disorder / Deafness, Hyperlipidemia, Hypertension, Pneumonia, Prostate Disorder, Respiratory Disorder, Skin Disorder Additional Past Medical History / Comment(s): Chronic hypoxic respiratory failure, home oxygen at 3L/NC ATC, bronchitis, NIDDM type II, neuropathy bilateral feet, essential tremors, BPH, occasional dermatitis since [place], [place] bilaterally and R ear recurrent infections, bilateral tinnitis, gastric ulcers, lower GI bleed, small hiatal hernia, past admission for colitis/sepsis-pt does not recall this. History of Any Multi-Drug Resistant Organisms: None Reported Past Surgical History: Hernia Repair Additional Past Surgical History / Comment(s): Incisional hernias x2, bilateral cataract removals, colonoscopy with benign polyp, vasectomy Past Anesthesia/Blood Transfusion Reactions: No Reported Reaction Past Psychological History: No Psychological Hx Reported Smoking Status: Former smoker Past Alcohol Use History: None Reported Past Drug Use History: None Reported - Past Family History Mother Family Medical History: No Reported History Additional Family Medical History / Comment(s): Mother was healthy. Father Family Medical History: Cancer Additional Family Medical History / Comment(s): COLON Sister(s) Family Medical History: Cancer Additional Family Medical History / Comment(s): REPRODUCTIVE Medications and Allergies Home Medications Medication Instructions Recorded Confirmed Type Chlorthalidone [Hygroton] 12.5 mg PO DAILY 07/15/15 07/04/21 History Losartan [Cozaar] 50 mg PO DAILY 07/15/15 07/04/21 History Pravastatin Sodium [Pravachol] 40 mg PO HS 07/15/15 07/04/21 History Pregabalin [Lyrica] 150 mg PO BID 07/15/15 07/04/21 History metFORMIN HCL [Glucophage] 500 mg PO BID 07/15/15 07/04/21 History Albuterol Nebulized [Ventolin 5 mg INHALATION RT-Q4H 05/18/17 07/04/21 History Nebulized] Ketoconazole 2% Shampoo [Nizoral] 1 applic TOPICAL DAILY 05/18/17 07/04/21 History Propranolol HCl [Propranolol HCl 60 mg PO HS 05/18/17 07/04/21 History ER] Albuterol Sulfate [Proventil Hfa] 1 - 2 puff INHALATION RT-BID 03/23/19 07/04/21 History Cyanocobalamin (Vitamin B-12) 1,000 mcg PO DAILY 03/23/19 07/04/21 History [Vitamin B-12] Mometasone Furoate [Asmanex] 2 puff INHALATION RT-BID 03/23/19 07/04/21 History Tadalafil [Cialis] 5 mg PO DAILY 03/23/19 07/04/21 History Terazosin HCl 10 mg PO DAILY 03/23/19 07/04/21 History Desonide [DesOwen .05%] 1 applic TOPICAL BID PRN 06/13/20 07/04/21 History Fluticasone Nasal [place] [Flonase 1 spr EA NOSTRIL BID 06/13/20 07/04/21 History Nasal [place]] Selenium Sulfide Shampoo 1 applic TOPICAL MOWEFR 06/13/20 07/04/21 History Clindamycin Phosphate 1 applic TOPICAL BID 07/04/21 07/04/21 History Eucerin Cream 1 applic TOPICAL DAILY 07/04/21 07/04/21 History Pyridoxine HCl (Vitamin B6) 25 mg PO DAILY 07/04/21 07/04/21 History [Pyridoxine HCl] Tiotropium [place] [Spiriva 2 puff INHALATION RT-DAILY 07/04/21 07/04/21 History Respimat] Triamcinolone 0.1% Ointment 1 applic TOPICAL Q12H PRN 07/04/21 07/04/21 History [Kenalog 0.1% Ointment] Allergies Allergy/AdvReac Type Severity Reaction Status Date / Time ciprofloxacin [From Cipro] Allergy Rash/Hives Verified 07/04/21 13:12 ciprofloxacin HCl Allergy Rash/Hives Verified 07/04/21 13:12 [From Cipro] Penicillins Allergy Rash/Hives Verified 07/04/21 13:12 tramadol Allergy Unknown Verified 07/04/21 13:12 venlafaxine [From Effexor] Allergy Unknown Verified 07/04/21 13:12 Physical Exam Vitals: Vital Signs Temp Pulse Resp BP Pulse Ox 07/04/21 13:54 82 18 116/63 97 07/04/21 12:55 74 18 123/66 98 07/04/21 11:02 80 18 98/63 98 07/04/21 10:50 105/54 07/04/21 09:52 98.2 F 73 18 85/60 93 L Intake and Output 07/04/21 07/04/21 07/04/21 06:59 14:59 22:59 Other: Weight 80.286 kg GENERAL EXAM: Alert, very pleasant, 80-year-old white male, resting on the gurney in the emergency department, mildly dyspneic, mildly bronchospastic, but no acute distress, patient is on 4 L of oxygen with a pulse ox of 97%, comfortable in no apparent distress. HEAD: Normocephalic/atraumatic. EYES: Normal reaction of pupils, equal size. Conjunctiva pink, sclera white. NOSE: Clear with pink turbinates. THROAT: No erythema or exudates. NECK: No masses, no JVD, no thyroid enlargement, no adenopathy. CHEST: No chest wall deformity. Symmetrical expansion. LUNGS: Equal air entry with no crackles, wheeze, rhonchi or dullness. CVS: Regular rate and rhythm, normal S1 and S2, no gallops, no murmurs, no rubs ABDOMEN: Soft, obese, nontender. No hepatosplenomegaly, normal bowel sounds, no guarding or rigidity. EXTREMITIES: No clubbing, no edema, no cyanosis, 2+ pulses and upper and lower extremities. MUSCULOSKELETAL: Muscle strength and tone normal. SPINE: No scoliosis or deformity SKIN: No rashes CENTRAL NERVOUS SYSTEM: Alert and oriented -3. No focal deficits, tone is normal in all 4 extremities. PSYCHIATRIC: Alert and oriented -3. Appropriate affect. Intact judgment and insight. Results - Laboratory Findings CBC and BMP: 07/04/21 14:19 07/04/21 10:18 PT/INR, D-dimer PT 10.3 sec (9.0-12.0) 07/04/21 10:18 INR 1.0 (<1.2) 07/04/21 10:18 Abnormal lab findings: Abnormal Labs 07/04/21 07/04/21 10:18 14:19 RBC 3.80 L Hgb 11.9 L Hct 36.0 L Chloride 97 L Carbon Dioxide 35 H BUN 27 H Glucose 112 H Total Protein 5.9 L - Diagnostic Findings Additional studies: EKG reviewed Assessment and Plan Plan: Assessment: #1. Acute GI bleeding, patient presenting with several episodes of bright red blood per rectum. Admission hemoglobin is 13.7, is currently down to 11.9. #2. Severe stage IV COPD with baseline FEV1 of 0.35 L or 12% of predicted, on home oxygen usually wears 3 L on a regular basis #4. Acute on chronic shortness of breath, possibly related to acute blood loss anemia, x-rays pending #5. Hypertension #6. Hyperlipidemia #7. Benign prostatic hypertrophy #8. Diabetes mellitus type 2 with diabetic neuropathy #9. Chronic dermatitis #10. 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 History of GI bleeding and gastric ulcer Plan: We will obtain chest x-ray Patient is having some moderate dyspnea, and wheezing We will add IV steroids and breathing treatments We'll review his chest x-ray when it's available Patient is an increased risk for deterioration related to his underlying history of end-stage COPD related to procedural sedation Continue monitoring serial H&H's, hemodynamically he is stable For now we will continue monitoring and conservative treatment We'll try to optimize his COPD We'll continue to follow Time with Patient: Greater than 30
[2021-07-04] MEDS: methylPREDNISolone SOD SUCCI 40 MG/ML 1 ML VIAL IV SCH ×2 (17:05→22:54)
[2021-07-04 17:42] LABS: Glucose,Whole Blood 132 mg/dL (75-99)
[2021-07-04 19:50] LABS: Glucose,Whole Blood 140 mg/dL (75-99)
[2021-07-04] MEDS: ALBUTEROL NEBULIZED 2.5 MG/3 ML INHALATION SCH ×2 (19:51→23:34)
[2021-07-04] MEDS: FLUTICASONE 220 MCG INHALER INHALATION SCH (19:53)
[2021-07-04] MEDS: PROPRANOLOL LA 60 MG CAP.SA.24H PO SCH (21:21)
[2021-07-04] MEDS: FLUTICASONE 50MCG/SPRAY NASAL 16GM EA NOSTRIL SCH (21:21)
[2021-07-04] MEDS: PRAVASTATIN SODIUM 40 MG TAB PO SCH (21:21)
[2021-07-04] MEDS: PREGABALIN 75 MG CAP PO SCH (21:21)
[2021-07-05 03:15] LABS: HCT 29.8 % (39.0-53.0); MCH 30.8 pg (25.0-35.0); MCHC 32.2 g/dL (31.0-37.0); MCV 95.6 fL (80.0-100.0); Mean Platelet Volume 7.5; Platelet Count 167 k/uL (150-450); RBC 3.12 m/uL (4.30-5.90); RDW 13.8 % (11.5-15.5); WBC 8.6 k/uL (3.8-10.6)
[2021-07-05 03:17] LABS: HGB 9.6 gm/dL (13.0-17.5)
[2021-07-05 03:19] LABS: INR 1.1 (<1.2); Prothrombin Time 11.1 sec (9.0-12.0)
[2021-07-05] MEDS: ALBUTEROL NEBULIZED 2.5 MG/3 ML INHALATION SCH ×5 (03:22→19:35)
[2021-07-05 03:27] LABS: Magnesium 1.7 mg/dL (1.6-2.3); Potassium 5.1 mmol/L (3.5-5.1)
--- NOTE | 2021-07-05 04:22 | P.PN ---
Progress Note - Text Progress Note Date: 07/05/21 ongoing bloody bowel movement , hemoglobin dropped > 4 gm in 24 hours will transfuse 1 uPRBC , monitor Hbg Q8H
[2021-07-05 06:06] LABS: Glucose,Whole Blood 150 mg/dL (75-99)
[2021-07-05] MEDS: INSULIN ASPART (NovoLOG) 100 UNIT/ML VIAL SQ SCH ×3 (06:26→16:58)
[2021-07-05] MEDS: FLUTICASONE 220 MCG INHALER INHALATION SCH ×2 (07:49→19:36)
[2021-07-05] MEDS: IPRATROPIUM 0.5 MG/2.5 ML NEBU INHALATION SCH ×4 (07:49→19:35)
[2021-07-05] MEDS: PREGABALIN 75 MG CAP PO SCH ×2 (08:54→20:28)
[2021-07-05] MEDS: methylPREDNISolone SOD SUCCI 40 MG/ML 1 ML VIAL IV SCH ×3 (08:55→22:56)
[2021-07-05] MEDS: DOXAZOSIN 4 MG TAB PO SCH (08:55)
[2021-07-05] MEDS: PANTOPRAZOLE 40 MG/10 ML VIAL IVP SCH (08:55)
[2021-07-05] MEDS: CYANOCOBALAMIN 500 MCG TAB PO SCH (08:55)
[2021-07-05] MEDS: PYRIDOXINE 50 MG TAB PO SCH (08:56)
[2021-07-05] MEDS: FLUTICASONE 50MCG/SPRAY NASAL 16GM EA NOSTRIL SCH ×2 (09:01→20:29)
[2021-07-05] MEDS: TADALAFIL 5 MG PO SCH (10:30)
[2021-07-05] MEDS: LOSARTAN 50 MG TAB PO SCH (10:30)
[2021-07-05] MEDS: CHLORTHALIDONE 25 MG TAB PO SCH (10:30)
[2021-07-05 11:56] LABS: Glucose,Whole Blood 151 mg/dL (75-99)
--- NOTE | 2021-07-05 13:19 | P.PN ---
Subjective Progress Note Date: 07/05/21 Principal diagnosis: Rectal bleeding This is a 80-year-old white male patient with known history of severe stage IV COPD with FEV1 of 0.35 L or 12% of predicted on home oxygen usually wears 3 L, normally sees Dr. Mackey in the pulmonary clinic for his COPD. Patient is a former smoker, he quit smoking over 25 years ago. Other medical history is significant for hypertension, hyperlipidemia, diabetes mellitus type 2, BPH, chronic dermatitis, patient is hard of hearing, previous history of GI bleeding and a gastric ulcer. He came into the emergency department on 07/04/2021 for evaluation of several episodes of bright red blood per rectum that started this morning. Patient states he had a total of 6 episodes thus far today, with large amount of bright red rectal bleeding. He woke up this morning to blood coming from his rectum. He is not on any blood thinners. He denies any abdominal pain, no nausea or vomiting. He states his bowel movements have been regular. Denied any lightheadedness, denied any dizziness, no chest pain, he does admit to mild shortness of breath, not significantly worse from his baseline. Denies any cough, no fever or chills. Blood work in the emergency department revealed a hemoglobin of 13.7, white blood cell count of 8.2, platelet count is 173, INR is 1.0, sodium is 137, potassium is 4.3, chloride is 97, CO2 is 35, B1 is 27 cre atinine is 1.05, lactic acid is 1.6, magnesium was 1.9, troponin is less than 0.012, stool for occult blood was positive. Patient is usually maintained on Spiriva, Ventolin inhaler on the regular basis. Patient is seen in the emergency department, he is mildly dyspneic, but appears to be in no acute distress, he is on 4 L of oxygen pulse ox of 98%, blood pressure is 116/63, he is in sinus mechanism with a rate of 82, he is afebrile. He is mildly dyspneic and wheezy on today's exam. Abdomen is soft, no hematemesis, he is being considered for endoscopic evaluation with colonoscopy,we were asked to see the patient for pulmonary clearance for colonoscopy On today's evaluation on 07/05/2031 patient seen in follow-up on [facility] care unit, since yesterday patient has had multiple episodes of bright red stools. Today's hemoglobin is 9.6, patient is receiving 1 unit of packed red blood ce lls. No abdominal pain, no vomiting, patient is on clear liquid diet. Yesterday we saw the patient consultation, patient has advanced COPD with baseline FEV1 of 12%, he is on home oxygen. Patient was more short of breath than usual, had wheezing on physical exam. We placed him back on nebulized bronchodilators, and IV steroids, he is breathing better on today's exam. he was seen in consultation by GI service possibly tomorrow. His blood pressure has remained stable, no complaints of chest pain, or worsening dyspnea. Objective - Vital Signs Vital signs: Vital Signs Temp 97.8 F 07/05/21 12:34 Pulse 71 07/05/21 12:34 Resp 18 07/05/21 12:34 BP 110/61 07/05/21 12:34 Pulse Ox 98 07/05/21 12:34 Intake & Output 07/04/21 07/05/21 07/05/21 18:59 06:59 18:59 Intake Total 1290 Output Total 2 Balance -2 1290 Weight 80.286 kg 79.2 kg Intake: Oral 980 Blood Product 310 Rc As-1 Unit 310 [id number] Output: Stool 2 Other: # Voids 2 # Bowel Movements 1 - Exam GENERAL EXAM: Alert, very pleasant, 80-year-old white male, in no acute distress, patient is on 4 L of oxygen with a pulse ox of 97%, comfortable in no apparent distress. HEAD: Normocephalic/atraumatic. EYES: Normal reaction of pupils, equal size. Conjunctiva pink, sclera white. NOSE: Clear with pink turbinates. THROAT: No erythema or exudates. NECK: No masses, no JVD, no thyroid enlargement, no adenopathy. CHEST: No chest wall deformity. Symmetrical expansion. LUNGS: Equal air entry with no crackles, wheeze, rhonchi or dullness. CVS: Regular rate and rhythm, normal S1 and S2, no gallops, no murmurs, no rubs ABDOMEN: Soft, obese, nontender. No hepatosplenomegaly, normal bowel sounds, no guarding or rigidity. EXTREMITIES: No clubbing, no edema, no cyanosis, 2+ pulses and upper and lower extremities. MUSCULOSKELETAL: Muscle strength and tone normal. SPINE: No scoliosis or deformity SKIN: No rashes CENTRAL NERVOUS SYSTEM: Alert and oriented -3. No focal deficits, tone is normal in all 4 extremities. PSYCHIATRIC: Alert and oriented -3. Appropriate affect. Intact judgment and insight. - Labs CBC & Chem 7: 07/05/21 02:56 07/05/21 02:56 Labs: Abnormal Lab Results - Last 24 Hours (Table) 07/04/21 07/04/21 07/04/21 Range/Units 10:18 14:19 17:40 RBC 3.80 L (4.30-5.90) m/uL Hgb 11.9 L (13.0-17.5) gm/dL Hct 36.0 L (39.0-53.0) % Sodium (137-145) mmol/L Chloride (98-107) mmol/L Carbon Dioxide (22-30) mmol/L BUN (9-20) mg/dL Glucose (74-99) mg/dL POC Glucose (mg/dL) 132 H (75-99) mg/dL Calcium (8.4-10.2) mg/dL Crossmatch See Detail 07/04/21 07/05/21 07/05/21 Range/Units 19:45 02:56 02:56 RBC 3.12 L (4.30-5.90) m/uL Hgb 9.6 L D (13.0-17.5) gm/dL Hct 29.8 L (39.0-53.0) % Sodium 134 L (137-145) mmol/L Chloride 97 L (98-107) mmol/L Carbon Dioxide 34 H (22-30) mmol/L BUN 28 H (9-20) mg/dL Glucose 140 H (74-99) mg/dL POC Glucose (mg/dL) 140 H (75-99) mg/dL Calcium 8.0 L (8.4-10.2) mg/dL Crossmatch 07/05/21 07/05/21 Range/Units 06:05 11:55 RBC (4.30-5.90) m/uL Hgb (13.0-17.5) gm/dL Hct (39.0-53.0) % Sodium (137-145) mmol/L Chloride (98-107) mmol/L Carbon Dioxide (22-30) mmol/L BUN (9-20) mg/dL Glucose (74-99) mg/dL POC Glucose (mg/dL) 150 H 151 H (75-99) mg/dL Calcium (8.4-10.2) mg/dL Crossmatch Assessment and Plan Plan: Assessment: #1. Acute GI bleeding, patient presenting with several episodes of bright red blood per rectum. Admission hemoglobin is 13.7, is currently down to 9.6. Patient continues to have bright red blood per rectum, he is currently receiving 1 unit of packed red blood cells #2. Severe stage IV COPD with baseline FEV1 of 0.35 L or 12% of predicted, on home oxygen usually wears 3 L on a regular basis #4. Acute on chronic shortness of breath, possibly related to acute blood loss anemia, x-rays pending #5. Hypertension #6. Hyperlipidemia #7. Benign prostatic hypertrophy #8. Diabetes mellitus type 2 with diabetic neuropathy #9. Chronic dermatitis #10. 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 History of GI bleeding and gastric ulcer Plan: Patient continues to have multiple episodes of bright red bleeding per rectum Chest x-ray showed no acute pulmonary abnormality His breathing is improved, continue IV steroids and bronchodilators From pulmonary perspective he is cleared for colonoscopy We'll continue to follow his care Time with Patient: Less than 30
[2021-07-05 13:55] LABS: HCT 28.6 % (39.0-53.0); HGB 9.3 gm/dL (13.0-17.5); MCH 30.5 pg (25.0-35.0); MCHC 32.6 g/dL (31.0-37.0); MCV 93.5 fL (80.0-100.0); Mean Platelet Volume 8.5; Platelet Count 145 k/uL (150-450); RBC 3.05 m/uL (4.30-5.90); RDW 14.8 % (11.5-15.5); WBC 8.6 k/uL (3.8-10.6)
--- NOTE | 2021-07-05 14:11 | P.PN ---
Subjective Progress Note Date: 07/05/21 Pt had 4 pt drop in hgb warranting tfx of 1U PRBC, he remains HDS. Breathing better today. Continues to have multiple bloody BMs. Plan for [place] 07/06. Objective - Vital Signs Vital signs: Vital Signs Temp 97.8 F 07/05/21 12:34 Pulse 71 07/05/21 12:34 Resp 18 07/05/21 12:34 BP 110/61 07/05/21 12:34 Pulse Ox 98 07/05/21 12:34 Intake & Output 07/04/21 07/05/21 07/05/21 18:59 06:59 18:59 Intake Total 1290 Output Total 2 Balance -2 1290 Weight 80.286 kg 79.2 kg Intake: Oral 980 Blood Product 310 Rc As-1 Unit 310 [id number] Output: Stool 2 Other: # Voids 2 # Bowel Movements 1 - Exam Gen: awake, alert HEENT: normocephalic, atraumatic, good hearing acuity, moist mucous membranes Resp: CTAB, diminished air exchange CVS: good distal perfusion x 4, RRR, no murmurs GI: soft, NTTP, ND : no SPT, no CVAT, tom catheter not present MSK: no pitting edema, no clubbing Neuro: non-focal, moving all extremities Psych: cooperative, euthymic mood - Labs CBC & Chem 7: 07/05/21 13:35 07/05/21 02:56 Labs: Abnormal Lab Results - Last 24 Hours (Table) 07/04/21 07/04/21 07/04/21 Range/Units 10:18 14:19 17:40 RBC 3.80 L (4.30-5.90) m/uL Hgb 11.9 L (13.0-17.5) gm/dL Hct 36.0 L (39.0-53.0) % Plt Count (150-450) k/uL Sodium (137-145) mmol/L Chloride (98-107) mmol/L Carbon Dioxide (22-30) mmol/L BUN (9-20) mg/dL Glucose (74-99) mg/dL POC Glucose (mg/dL) 132 H (75-99) mg/dL Calcium (8.4-10.2) mg/dL Crossmatch See Detail 07/04/21 07/05/21 07/05/21 Range/Units 19:45 02:56 02:56 RBC 3.12 L (4.30-5.90) m/uL Hgb 9.6 L D (13.0-17.5) gm/dL Hct 29.8 L (39.0-53.0) % Plt Count (150-450) k/uL Sodium 134 L (137-145) mmol/L Chloride 97 L (98-107) mmol/L Carbon Dioxide 34 H (22-30) mmol/L BUN 28 H (9-20) mg/dL Glucose 140 H (74-99) mg/dL POC Glucose (mg/dL) 140 H (75-99) mg/dL Calcium 8.0 L (8.4-10.2) mg/dL Crossmatch 07/05/21 07/05/21 07/05/21 Range/Units 06:05 11:55 13:35 RBC 3.05 L (4.30-5.90) m/uL Hgb 9.3 L (13.0-17.5) gm/dL Hct 28.6 L (39.0-53.0) % Plt Count 145 L (150-450) k/uL Sodium (137-145) mmol/L Chloride (98-107) mmol/L Carbon Dioxide (22-30) mmol/L BUN (9-20) mg/dL Glucose (74-99) mg/dL POC Glucose (mg/dL) 150 H 151 H (75-99) mg/dL Calcium (8.4-10.2) mg/dL Crossmatch Assessment and Plan Assessment: Lower GI bleed -Admit to observation, telemetry -GI consult for colonoscopy -Clear liquid diet with plans to prep for colo on 07/06 -Trend CBC -1U PRBC on 07/05 -Maintain active type and screen -Maintain large-bore IV access -Close monitoring of hemodynamics COPD without exacerbation Chronic respiratory failure Diabetes type 2 Hypertension Hyperlipidemia GERD with esophagitis -Oxygen when necessary -Pulmonology consulted -Home medications reviewed and reconciled Patient is a no code DVT prophylaxis is contraindicated Daughter is DURABLE POWER OF PRODUCTION TEAM MEMBER
--- NOTE | 2021-07-05 14:37 | P.PN ---
Subjective Progress Note Date: 07/05/21 Principal diagnosis: Rectal bleeding 80-year-old male who presented to the emergency department after having multiple episodes of rectal bleeding. Patient denies any anticoagulation or frequent NSAID use. Denies any previous GI bleed. Last colonoscopy was approximately 15 years ago. He has no associated abdominal pain, nausea, or vomiting. The patient was seen and examined at the bedside. He states he had 2 episodes of bright red blood through the evening. None this morning. He had a 4 g drop in his hemoglobin to 9.6. Primary medicine team transfusing. Pulmonology seen patient and has cleared patient to have EGD and colonoscopy tomorrow. Objective - Vital Signs Vital signs: Vital Signs Temp 97.9 F 07/05/21 08:00 Pulse 80 07/05/21 08:05 Resp 18 07/05/21 08:00 BP 114/60 07/05/21 08:00 Pulse Ox 98 07/05/21 08:00 Intake & Output 07/04/21 07/05/21 07/05/21 18:59 06:59 18:59 Intake Total 480 Output Total 2 Balance -2 480 Weight 80.286 kg 79.2 kg Intake: Oral 480 Output: Stool 2 Other: # Voids 2 - Exam General appearance: The patient is alert, oriented, appears in no acute distress. HET: Head is normocephalic and atraumatic. Conjunctiva pink. Sclera anicteric. Neck: Supple without lymphadenopathy. Abdomen: Soft, nontender, nondistended with bowel sounds. No guarding or rigidity. Extremities: Normal skin color and turgor. No pedal edema Skin: No rashes, no jaundice Neurological: No focal deficits. Alert and oriented 3. - Labs CBC & Chem 7: 07/05/21 13:35 07/05/21 02:56 Labs: Abnormal Lab Results - Last 24 Hours (Table) 07/04/21 07/04/21 07/04/21 Range/Units 10:18 10:18 14:19 RBC 3.80 L (4.30-5.90) m/uL Hgb 11.9 L (13.0-17.5) gm/dL Hct 36.0 L (39.0-53.0) % Sodium (137-145) mmol/L Chloride 97 L (98-107) mmol/L Carbon Dioxide 35 H (22-30) mmol/L BUN 27 H (9-20) mg/dL Glucose 112 H (74-99) mg/dL POC Glucose (mg/dL) (75-99) mg/dL Calcium (8.4-10.2) mg/dL Total Protein 5.9 L (6.3-8.2) g/dL Crossmatch See Detail 07/04/21 07/04/21 07/05/21 Range/Units 17:40 19:45 02:56 RBC (4.30-5.90) m/uL Hgb (13.0-17.5) gm/dL Hct (39.0-53.0) % Sodium 134 L (137-145) mmol/L Chloride 97 L (98-107) mmol/L Carbon Dioxide 34 H (22-30) mmol/L BUN 28 H (9-20) mg/dL Glucose 140 H (74-99) mg/dL POC Glucose (mg/dL) 132 H 140 H (75-99) mg/dL Calcium 8.0 L (8.4-10.2) mg/dL Total Protein (6.3-8.2) g/dL Crossmatch 07/05/21 07/05/21 Range/Units 02:56 06:05 RBC 3.12 L (4.30-5.90) m/uL Hgb 9.6 L D (13.0-17.5) gm/dL Hct 29.8 L (39.0-53.0) % Sodium (137-145) mmol/L Chloride (98-107) mmol/L Carbon Dioxide (22-30) mmol/L BUN (9-20) mg/dL Glucose (74-99) mg/dL POC Glucose (mg/dL) 150 H (75-99) mg/dL Calcium (8.4-10.2) mg/dL Total Protein (6.3-8.2) g/dL Crossmatch Assessment and Plan (1) GI bleed Narrative/Plan: 80-year-old male who presented to the emergency department with complaints of multiple episodes of bright red blood per rectum. States he was having bright red blood with clots which was painless. Denies any abdominal pain, nausea, or vomiting. Her last colonoscopy was approximately 15 years ago. He does state he has a history of an ulcer. He is not on any blood thinners or does not take NSAIDs regularly. On admission his hemoglobin was stable at 13.7. He does have a history of COPD and is oxygen dependent follows with Dr. Mackey. Likely dealing with a diverticular bleed however other possible etiologies need to be considered. Patient also has history of peptic ulcer disease. Will proceed with EGD and colonoscopy if cleared by pulmonology. Current Visit: Yes Status: Acute Code(s): K92.2 - GASTROINTESTINAL HEMORRHAGE, UNSPECIFIED SNOMED Code(s): 68933777 (2) COPD (chronic obstructive pulmonary disease) Narrative/Plan: Pulmonology consulted to evaluate patient for clearance for EGD and colonoscopy. Patient follows with Dr. Mackey. He is oxygen dependent and is having some labored respirations. Patient seen by pulmonology and cleared to proceed with EGD and colonoscopy. Current Visit: Yes Status: Acute Code(s): J44.9 - CHRONIC OBSTRUCTIVE PULMONARY DISEASE, UNSPECIFIED SNOMED Code(s): 91585868 Plan: 1. Continue symptomatic and supportive care 2. Clear liquid diet, nothing by mouth after midnight 3. Daily CBC and transfuse for hemoglobin less than 7 4. Protonix 40 mg daily 5. Pulmonology consult, they have cleared patient to proceed with EGD and colonoscopy 6. Bowel prep this evening 7. Plan for EGD and colonoscopy tomorrow, procedures discussed with patient and to kill including risks and benefits. Patient is willing to proceed with EGD and colonoscopy. Thank you for this consultation, we will continue to follow closely. Dr. Irma Kaiser I agree with the dictator's note, documented as a scribe by Apolonia Winchester.
[2021-07-05] MEDS ORDERED: PEG 3350-NA SULF,BICARB,CL/KCL 4,000 ML BOTTLE PO ONE (16:00)
[2021-07-05 16:46] LABS: Glucose,Whole Blood 137 mg/dL (75-99)
[2021-07-05 20:02] LABS: Glucose,Whole Blood 169 mg/dL (75-99)
[2021-07-05] MEDS: PRAVASTATIN SODIUM 40 MG TAB PO SCH (20:28)
[2021-07-05] MEDS: PROPRANOLOL LA 60 MG CAP.SA.24H PO SCH (20:29)
[2021-07-05 22:11] LABS: HGB 8.9 gm/dL (13.0-17.5); MCH 31.5 pg (25.0-35.0); MCHC 34.2 g/dL (31.0-37.0); Mean Platelet Volume 9.2; Platelet Count 133 k/uL (150-450); RBC 2.83 m/uL (4.30-5.90); WBC 8.3 k/uL (3.8-10.6)
[2021-07-05] MEDS ORDERED: TEMAZEPAM 7.5 MG CAP PO ONE (22:59)
[2021-07-06 06:16] LABS: Glucose,Whole Blood 148 mg/dL (75-99)
[2021-07-06] MEDS: INSULIN ASPART (NovoLOG) 100 UNIT/ML VIAL SQ SCH ×3 (06:19→17:29)
[2021-07-06] MEDS: LOSARTAN 50 MG TAB PO SCH (07:23)
[2021-07-06] MEDS: CHLORTHALIDONE 25 MG TAB PO SCH (07:23)
[2021-07-06 08:14] LABS: HCT 23.4 % (39.0-53.0); HGB 7.5 gm/dL (13.0-17.5); MCH 29.6 pg (25.0-35.0); MCHC 31.8 g/dL (31.0-37.0); MCV 93.2 fL (80.0-100.0); Mean Platelet Volume 8.3; Platelet Count 150 k/uL (150-450); RBC 2.51 m/uL (4.30-5.90); RDW 14.8 % (11.5-15.5); WBC 9.9 k/uL (3.8-10.6)
[2021-07-06] MEDS: CYANOCOBALAMIN 500 MCG TAB PO SCH (08:14)
[2021-07-06] MEDS: PREGABALIN 75 MG CAP PO SCH ×2 (08:14→21:04)
[2021-07-06] MEDS: DOXAZOSIN 4 MG TAB PO SCH (08:15)
[2021-07-06] MEDS: PANTOPRAZOLE 40 MG/10 ML VIAL IVP SCH (08:15)
[2021-07-06] MEDS: methylPREDNISolone SOD SUCCI 40 MG/ML 1 ML VIAL IV SCH ×3 (08:15→22:51)
[2021-07-06] MEDS: PYRIDOXINE 50 MG TAB PO SCH (08:16)
[2021-07-06] MEDS: TADALAFIL 5 MG PO SCH (08:16)
[2021-07-06] MEDS: FLUTICASONE 50MCG/SPRAY NASAL 16GM EA NOSTRIL SCH ×2 (08:19→21:04)
[2021-07-06] MEDS: IPRATROPIUM-ALBUTEROL 3 ML NEB INHALATION SCH ×4 (08:59→19:40)
[2021-07-06] MEDS: FLUTICASONE 220 MCG INHALER INHALATION SCH ×2 (08:59→19:40)
[2021-07-06 11:45] LABS: Glucose,Whole Blood 145 mg/dL (75-99)
--- NOTE | 2021-07-06 12:09 | P.PN ---
Subjective Progress Note Date: 07/06/21 This is a 80-year-old white male patient with known history of severe stage IV COPD with FEV1 of 0.35 L or 12% of predicted on home oxygen usually wears 3 L, normally sees Dr. Mackey in the pulmonary clinic for his COPD. Patient is a former smoker, he quit smoking over 25 years ago. Other medical history is significant for hypertension, hyperlipidemia, diabetes mellitus type 2, BPH, chronic dermatitis, patient is hard of hearing, previous history of GI bleeding and a gastric ulcer. He came into the emergency department on 07/04/2021 for evaluation of several episodes of bright red blood per rectum that started this morning. Patient states he had a total of 6 episodes thus far today, with large amount of bright red rectal bleeding. He woke up this morning to blood coming from his rectum. He is not on any blood thinners. He denies any abdominal pain, no nausea or vomiting. He states his bowel movements have been regular. Denied any lightheadedness, denied any dizziness, no chest pain, he does admit to mild shortness of breath, not significantly worse from his baseline. Denies any cough, no fever or chills. Blood work in the emergency department revealed a hemoglobin of 13.7, white blood cell count of 8.2, platelet count is 173, INR is 1.0, sodium is 137, potassium is 4.3, chloride is 97, CO2 is 35, B1 is 27 creatinine is 1.05, lactic acid is 1.6, magnesium was 1.9, troponin is less than 0.012, stool for occult blood was positive. Patient is usually maintained on Spiriva, Ventolin inhaler on the regular basis. Patient is seen in the emergency department, he is mildly dyspneic, but appears to be in no acute distress, he is on 4 L of oxygen pulse ox of 98%, blood pressure is 116/63, he is in sinus mechanism with a rate of 82, he is afebrile. He is mildly dyspneic and wheezy on today's exam. Abdomen is soft, no hematemesis, he is being considered for endoscopic evaluation with colonoscopy,we were asked to see the patient for pulmonary clearance for colonoscopy On today's evaluation on 07/05/2031 patient seen in [facility], since yesterday patient has had multiple episodes of bright red stools. Today's hemoglobin is 9.6, patient is receiving 1 unit of packed red blood cells. No abdominal pain, no vomiting, patient is on clear liquid diet. Yesterday we saw the patient consultation, patient has advanced COPD with baseline FEV1 of 12%, he is on home oxygen. Patient was more short of breath than usual, had wheezing on physical exam. We placed him back on nebulized bronchodilators, and IV steroids, he is breathing better on today's exam. he was seen in consultation by GI service possibly tomorrow. His blood pressure has remained stable, no complaints of chest pain, or worsening dyspnea. The patient seen today 07/06/2021 in follow-up on the selective care unit. He is currently awake and alert in no acute distress. He is maintaining good O2 saturations in the upper 90s on 4 L/m per nasal cannula. He remains on IV Solu- Medrol, bronchodilators. He is currently receiving his second unit of packed red blood cells. Hemoglobin 7.5. White count 9.9. Glucose 145. He was having some continued GI bleeding. The plan is for upper and lower endoscopy today. Objective - Vital Signs Vital signs: Vital Signs Temp 97.8 F 07/06/21 10:31 Pulse 73 07/06/21 10:31 Resp 20 07/06/21 10:31 BP 111/59 07/06/21 10:31 Pulse Ox 98 07/06/21 10:31 Intake & Output 07/05/21 07/06/21 07/06/21 18:59 06:59 18:59 Intake Total 1408 0 Output Total 4 Balance 1408 -4 0 Weight 80.4 kg Intake: Oral 1098 0 Blood Product 310 0 Rc As-1 Unit 310 [id number] Rc As-1 Unit 0 [id number] Output: Stool 4 Other: # Voids 2 2 # Bowel Movements 2 4 - Exam GENERAL EXAM: Alert, very pleasant, 80-year-old male patient, in no acute distress, patient is on 4 L of oxygen with a pulse ox of 98%, comfortable in no apparent distress. HEAD: Normocephalic/atraumatic. EYES: Normal reaction of pupils, equal size. Conjunctiva pink, sclera white. NOSE: Clear with pink turbinates. THROAT: No erythema or exudates. NECK: No masses, no JVD, no thyroid enlargement, no adenopathy. CHEST: No chest wall deformity. Symmetrical expansion. LUNGS: Equal air entry with no crackles, wheeze, rhonchi or dullness. Diminished CVS: Regular rate and rhythm, normal S1 and S2, no gallops, no murmurs, no rubs ABDOMEN: Soft, obese, nontender. No hepatosplenomegaly, normal bowel sounds, no guarding or rigidity. EXTREMITIES: No clubbing, no edema, no cyanosis, 2+ pulses and upper and lower extremities. MUSCULOSKELETAL: Muscle strength and tone normal. SPINE: No scoliosis or deformity SKIN: No rashes CENTRAL NERVOUS SYSTEM: No focal deficits, tone is normal in all 4 extremities. PSYCHIATRIC: Alert and oriented -3. Appropriate affect. Intact judgment and insight. - Labs CBC & Chem 7: 07/06/21 07:44 07/05/21 02:56 Labs: Abnormal Lab Results - Last 24 Hours (Table) 07/04/21 07/05/21 07/05/21 Range/Units 10:18 11:55 13:35 RBC 3.05 L (4.30-5.90) m/uL Hgb 9.3 L (13.0-17.5) gm/dL Hct 28.6 L (39.0-53.0) % Plt Count 145 L (150-450) k/uL POC Glucose (mg/dL) 151 H (75-99) mg/dL Crossmatch See Detail 07/05/21 07/05/21 07/05/21 Range/Units 16:44 20:00 21:58 RBC 2.83 L (4.30-5.90) m/uL Hgb 8.9 L (13.0-17.5) gm/dL Hct 26.0 L (39.0-53.0) % Plt Count 133 L (150-450) k/uL POC Glucose (mg/dL) 137 H 169 H (75-99) mg/dL Crossmatch 07/06/21 07/06/21 07/06/21 Range/Units 06:13 07:44 11:44 RBC 2.51 L (4.30-5.90) m/uL Hgb 7.5 L (13.0-17.5) gm/dL Hct 23.4 L (39.0-53.0) % Plt Count (150-450) k/uL POC Glucose (mg/dL) 148 H 145 H (75-99) mg/dL Crossmatch Assessment and Plan Assessment: 1 Acute GI bleeding, patient presenting with several episodes of bright red blood per rectum. Admission hemoglobin is 13.7, is currently down to 7.5. 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 Hess Currently stable from the pulmonary standpoint Continue steroids, bronchodilators Receiving a second unit of blood Plan is for EGD/colonoscopy today We will continue to follow I, the cosigning physician, performed a history & physical examination of the patient. Lungs sounds are clear, diminished. Maintaining good O2 saturations in the 90s on 4L per minute per nasal cannula. I discussed the assessment and plan of care with my nurse practitioner, Mishel Camacho. I attest to the above note as dictated by her.
[2021-07-06] MEDS ORDERED: PHENYLEPHRINE-0.9% NACL SYG 1,000 MCG/10 ML SYRINGE ONE (12:58)
[2021-07-06] MEDS ORDERED: IV FLUID CONTINUATION 150 ML IV ONE (12:58)
[2021-07-06] MEDS ORDERED: PROPOFOL 10 MG/ML 20 ML VIAL IV ONE (12:58)
[2021-07-06] MEDS ORDERED: LIDOCAINE 1% INJ 10MG/ML (20 ML MDV) ONE (12:58)
--- NOTE | 2021-07-06 13:16 | P.PN ---
Progress Note - Text Progress Note Date: 07/06/21 Patient was a NO Code Status. After discussion with patient code status to be revered during the perioperative period.
--- NOTE | 2021-07-06 13:19 | P.PN ---
Subjective Progress Note Date: 07/06/21 Pt continues to have declining hgb. HDS. Requires 1U PRBC on 07/06. Pending EGD/[place] today. Objective - Vital Signs Vital signs: Vital Signs Temp 98.5 F 07/06/21 12:39 Pulse 68 07/06/21 12:39 Resp 20 07/06/21 12:39 BP 116/52 07/06/21 12:39 Pulse Ox 98 07/06/21 12:39 Intake & Output 07/05/21 07/06/21 07/06/21 18:59 06:59 18:59 Intake Total 1408 310 Output Total 4 Balance 1408 -4 310 Weight 80.4 kg Intake: Oral 1098 0 Blood Product 310 310 Rc As-1 Unit 310 [id number] Rc As-1 Unit 310 [id number] Output: Stool 4 Other: # Voids 2 2 # Bowel Movements 2 4 1 - Exam Gen: awake, alert HEENT: normocephalic, atraumatic, good hearing acuity, moist mucous membranes Resp: CTAB, diminished air exchange CVS: good distal perfusion x 4, RRR, no murmurs GI: soft, NTTP, ND : no SPT, no CVAT, tom catheter not present MSK: no pitting edema, no clubbing Neuro: non-focal, moving all extremities Psych: cooperative, euthymic mood - Labs CBC & Chem 7: 07/06/21 07:44 07/05/21 02:56 Labs: Abnormal Lab Results - Last 24 Hours (Table) 07/04/21 07/05/21 07/05/21 Range/Units 10:18 13:35 16:44 RBC 3.05 L (4.30-5.90) m/uL Hgb 9.3 L (13.0-17.5) gm/dL Hct 28.6 L (39.0-53.0) % Plt Count 145 L (150-450) k/uL POC Glucose (mg/dL) 137 H (75-99) mg/dL Crossmatch See Detail 07/05/21 07/05/21 07/06/21 Range/Units 20:00 21:58 06:13 RBC 2.83 L (4.30-5.90) m/uL Hgb 8.9 L (13.0-17.5) gm/dL Hct 26.0 L (39.0-53.0) % Plt Count 133 L (150-450) k/uL POC Glucose (mg/dL) 169 H 148 H (75-99) mg/dL Crossmatch 07/06/21 07/06/21 Range/Units 07:44 11:44 RBC 2.51 L (4.30-5.90) m/uL Hgb 7.5 L (13.0-17.5) gm/dL Hct 23.4 L (39.0-53.0) % Plt Count (150-450) k/uL POC Glucose (mg/dL) 145 H (75-99) mg/dL Crossmatch Assessment and Plan Assessment: Lower GI bleed -Admit to observation, telemetry -GI consult for colonoscopy -Clear liquid diet with plans to prep for EGD/colo on 07/06 -Trend CBC -1U PRBC on 07/05 -1U PRBC on 07/06 -Maintain active type and screen -Maintain large-bore IV access -Close monitoring of hemodynamics COPD without exacerbation Chronic respiratory failure Diabetes type 2 Hypertension Hyperlipidemia GERD with esophagitis -Oxygen when necessary -Pulmonology consulted -Home medications reviewed and reconciled Patient is a no code DVT prophylaxis is contraindicated Daughter is DURABLE POWER OF TRAVELING CLERK
--- NOTE | 2021-07-06 13:35 | P.PCN ---
Date of Procedure: 07/06/21 Procedure(s) Performed: Brief history: Patient is a pleasant 80-year-old white male admitted hospital with acute GI bleed. He had multiple episodes of maroon-colored stools followed by bright red blood per rectum with large clots. He dropped his hemoglobin and 30-7.5 g/dL requiring 2 units of PRBC transfusion. He is scheduled for an upper endoscopy as well as colonoscopy to evaluate further. Procedure performed: Esophagogastroduodenoscopy Colonoscopy with snare polypectomy Preoperative diagnosis: Acute GI bleed Anesthesia: MAC Procedure: After informed consent was obtained from the patient was brought into the endoscopy unit and IV sedation was administered by anesthesia under continuous monitoring. Initially upper endoscopy was done. The Olympus GF 160 video endoscope was inserted inserted into the mouth and esophagus intubated without any difficulty and was gradually advanced into the stomach and duodenum and carefully examined. The bulb and second part of the duodenum appeared normal. The scope was then withdrawn into the stomach adequately insufflated with air and upon careful examination the antrum and body, cardia and fundus appeared normal. The scope was then withdrawn into the esophagus. The GE junction was located at 40 cm to the incisors. It appeared regular with no erythema erosions or ulcerations. Rest of the esophagus appeared normal. Patient tolerated the procedure well. At this time the patient continued to remain sedation. Initial digital rectal examination was normal. Olympus CF 160 video colonoscope was then inserted into the rectum and gradually advanced to the cecum without any difficulty. Careful examination was performed as the scope was gradually being withdrawn. The prep was good. There was blood noted throughout the entire colon more predominant in the left colon with clot in the vicinity of extensive left-sided diverticulosis. There was a 1 cm broad-based polyp in the ascending colon that was removed by snare polypectomy. Pandiverticulosis seen but more predominant in the left colon. Irrigation was performed. Retroflexion was performed in the rectum and no lesions were noted. Patient tolerated the procedure well. Impression: 1. Upper endoscopy was within normal with no evidence of active upper GI bleed 2. Colonoscopy revealed diffuse diverticulosis with fresh blood noted throughout the entire colon more predominant in the sigmoid and descending colon, which makes it likely source of bleeding his left sided diverticulosis. 2 CM BROAD-BASED POLYP IN THE ASCENDING COLON THAT WAS SNARE POLYPECTOMY Recommendations: Findings of this examination were discussed with the patient as well as his family. He'll be started on clear liquid diet. Will monitor CBC closely and transfuse as needed.
[2021-07-06 14:24] LABS: HGB 8.8 gm/dL (13.0-17.5); MCH 31.1 pg (25.0-35.0); MCHC 33.8 g/dL (31.0-37.0); Mean Platelet Volume 8.2; Platelet Count 130 k/uL (150-450); RBC 2.82 m/uL (4.30-5.90); RDW 14.8 % (11.5-15.5); WBC 7.9 k/uL (3.8-10.6)
[2021-07-06 16:47] LABS: Glucose,Whole Blood 164 mg/dL (75-99)
[2021-07-06 19:55] LABS: HCT 23.6 % (39.0-53.0); HGB 7.7 gm/dL (13.0-17.5); MCH 29.8 pg (25.0-35.0); MCHC 32.6 g/dL (31.0-37.0); MCV 91.6 fL (80.0-100.0); Mean Platelet Volume 9.3; Platelet Count 109 k/uL (150-450); Poikilocytosis Slight; RBC 2.58 m/uL (4.30-5.90); RDW 15.1 % (11.5-15.5)
[2021-07-06 20:20] LABS: Glucose,Whole Blood 138 mg/dL (75-99)
[2021-07-06] MEDS: PROPRANOLOL LA 60 MG CAP.SA.24H PO SCH (21:37)
[2021-07-06] MEDS: PRAVASTATIN SODIUM 40 MG TAB PO SCH (21:37)
[2021-07-07 06:12] LABS: Glucose,Whole Blood 143 mg/dL (75-99)
[2021-07-07] MEDS: INSULIN ASPART (NovoLOG) 100 UNIT/ML VIAL SQ SCH ×3 (06:34→17:00)
[2021-07-07 07:41] LABS: HCT 24.7 % (39.0-53.0); MCH 30.3 pg (25.0-35.0); MCHC 32.3 g/dL (31.0-37.0); MCV 93.6 fL (80.0-100.0); Mean Platelet Volume 9.1; Platelet Count 122 k/uL (150-450); RBC 2.64 m/uL (4.30-5.90); RDW 14.8 % (11.5-15.5); WBC 10.9 k/uL (3.8-10.6)
[2021-07-07 07:52] LABS: Calcium 7.3 mg/dL (8.4-10.2); Potassium 4.4 mmol/L (3.5-5.1)
[2021-07-07] MEDS: IPRATROPIUM-ALBUTEROL 3 ML NEB INHALATION SCH ×5 (08:15→23:46)
[2021-07-07] MEDS: FLUTICASONE 220 MCG INHALER INHALATION SCH ×2 (08:16→19:27)
[2021-07-07] MEDS: methylPREDNISolone SOD SUCCI 40 MG/ML 1 ML VIAL IV SCH ×3 (08:45→23:52)
[2021-07-07] MEDS: PANTOPRAZOLE 40 MG/10 ML VIAL IVP SCH (08:45)
[2021-07-07] MEDS: CYANOCOBALAMIN 500 MCG TAB PO SCH (08:46)
[2021-07-07] MEDS: CHLORTHALIDONE 25 MG TAB PO SCH (08:46)
[2021-07-07] MEDS: DOXAZOSIN 4 MG TAB PO SCH (08:46)
[2021-07-07] MEDS: PREGABALIN 75 MG CAP PO SCH ×2 (08:47→21:34)
[2021-07-07] MEDS: PYRIDOXINE 50 MG TAB PO SCH (08:47)
[2021-07-07] MEDS: FLUTICASONE 50MCG/SPRAY NASAL 16GM EA NOSTRIL SCH ×2 (08:47→21:34)
[2021-07-07] MEDS: LOSARTAN 50 MG TAB PO SCH (08:53)
[2021-07-07] MEDS: TADALAFIL 5 MG PO SCH (09:01)
[2021-07-07 11:08] VITALS: BMI 26.9
[2021-07-07 11:45] LABS: Glucose,Whole Blood 112 mg/dL (75-99)
--- NOTE | 2021-07-07 13:14 | P.PN ---
Subjective Progress Note Date: 07/07/21 Pt reports some increased difficulty breathing today. Did well s/p colo. Had polyp removed. Source of bleed felt to be diverticulosis. Hgb stable and no further bleeding in last 24 hours. Objective - Vital Signs Vital signs: Vital Signs Temp 97.9 F 07/07/21 08:00 Pulse 77 07/07/21 08:29 Resp 21 07/07/21 08:00 BP 114/56 07/07/21 08:00 Pulse Ox 97 07/07/21 08:00 Intake & Output 07/06/21 07/07/21 07/07/21 18:59 06:59 18:59 Intake Total 1050 118 Balance 1050 118 Weight 80.2 kg 80.2 kg Intake: IV 100 Oral 640 118 Blood Product 310 Rc As-1 Unit 310 [id number] Other: Voiding Method Urinal # Voids 2 # Bowel Movements 1 - Exam Gen: awake, alert HEENT: normocephalic, atraumatic, good hearing acuity, moist mucous membranes Resp: CTAB, diminished air exchange CVS: good distal perfusion x 4, RRR, no murmurs GI: soft, NTTP, ND : no SPT, no CVAT, tom catheter not present MSK: no pitting edema, no clubbing Neuro: non-focal, moving all extremities Psych: cooperative, euthymic mood - Labs CBC & Chem 7: 07/07/21 07:30 07/07/21 07:30 Labs: Abnormal Lab Results - Last 24 Hours (Table) 07/04/21 07/06/21 07/06/21 Range/Units 10:18 14:05 16:45 WBC (3.8-10.6) k/uL RBC 2.82 L (4.30-5.90) m/uL Hgb 8.8 L (13.0-17.5) gm/dL Hct 26.0 L (39.0-53.0) % Plt Count 130 L (150-450) k/uL Carbon Dioxide (22-30) mmol/L BUN (9-20) mg/dL Glucose (74-99) mg/dL POC Glucose (mg/dL) 164 H (75-99) mg/dL Calcium (8.4-10.2) mg/dL Crossmatch See Detail 08/07/06/21 07/07/21 Range/Units 19:44 20:17 05:48 WBC (3.8-10.6) k/uL RBC 2.58 L (4.30-5.90) m/uL Hgb 7.7 L (13.0-17.5) gm/dL Hct 23.6 L (39.0-53.0) % Plt Count 109 L (150-450) k/uL Carbon Dioxide (22-30) mmol/L BUN (9-20) mg/dL Glucose (74-99) mg/dL POC Glucose (mg/dL) 138 H 143 H (75-99) mg/dL Calcium (8.4-10.2) mg/dL Crossmatch 07/07/21 07/07/21 07/07/21 Range/Units 07:30 07:30 11:42 WBC 10.9 H (3.8-10.6) k/uL RBC 2.64 L (4.30-5.90) m/uL Hgb 8.0 L (13.0-17.5) gm/dL Hct 24.7 L (39.0-53.0) % Plt Count 122 L (150-450) k/uL Carbon Dioxide 35 H (22-30) mmol/L BUN 28 H (9-20) mg/dL Glucose 110 H (74-99) mg/dL POC Glucose (mg/dL) 112 H (75-99) mg/dL Calcium 7.3 L (8.4-10.2) mg/dL Crossmatch Assessment and Plan Assessment: Lower GI bleed -Admit to observation, telemetry -GI consult for colonoscopy -Clear liquid diet with plans to prep for EGD/[facility] on 07/06 -Trend CBC -1U PRBC on 07/05 -1U PRBC on 07/06 -Maintain active type and screen -Maintain large-bore IV access -Close monitoring of hemodynamics COPD exacerbation Chronic respiratory failure -Oxygen when necessary -Pulmonology consulted -duonebs q4h -solumedrol q6h Diabetes type 2 Hypertension Hyperlipidemia GERD with esophagitis -Home medications reviewed and reconciled Patient is a no code DVT prophylaxis is contraindicated Daughter is DURABLE POWER OF PAINTER ROUGH
--- NOTE | 2021-07-07 15:22 | P.PN ---
Subjective Progress Note Date: 07/07/21 Principal diagnosis: Rectal bleeding 80-year-old male who presented to the emergency department after having multiple episodes of rectal bleeding. Patient denies any anticoagulation or frequent NSAID use. Denies any previous GI bleed. Last colonoscopy was approximately 15 years ago. He has no associated abdominal pain, nausea, or vomiting. Patient had a drop in his hemoglobin requiring 2 units of PRBC transfusion. Yesterday he underwent EGD and colonoscopy. EGD showed no evidence of active upper GI bleed, normal mucosa. Colonoscopy revealed diffuse diverticulosis with fresh blood noted throughout the entire colon more prominent in the sigmoid and descending colon which makes likely source of bleeding has left sided diverticulosis. 2 cm broad based polyp in the ascending colon that was removed by polypectomy. Today patient has a stable hemoglobin of 8. He has had no further bloody bowel movements. He denies any abdominal pain, nausea, or vomiting. Objective - Vital Signs Vital signs: Vital Signs Temp 97.9 F 07/07/21 08:00 Pulse 77 07/07/21 08:29 Resp 21 07/07/21 08:00 BP 114/56 07/07/21 08:00 Pulse Ox 97 07/07/21 08:00 Intake & Output 07/06/21 07/07/21 07/07/21 18:59 06:59 18:59 Intake Total 1050 118 Balance 1050 118 Weight 80.2 kg Intake: IV 100 Oral 640 118 Blood Product 310 Rc As-1 Unit 310 [id number] Other: Voiding Method Urinal # Voids 2 # Bowel Movements 1 - Exam General appearance: The patient is alert, oriented, appears in no acute distress. HET: Head is normocephalic and atraumatic. Conjunctiva pink. Sclera anicteric. Neck: Supple without lymphadenopathy. Abdomen: Soft, nontender, nondistended with bowel sounds. No guarding or rigidity. Extremities: Normal skin color and turgor. No pedal edema Skin: No rashes, no jaundice Neurological: No focal deficits. Alert and oriented 3. - Labs CBC & Chem 7: 07/07/21 07:30 07/07/21 07:30 Labs: Abnormal Lab Results - Last 24 Hours (Table) 07/04/21 07/06/21 07/06/21 Range/Units 10:18 11:44 14:05 WBC (3.8-10.6) k/uL RBC 2.82 L (4.30-5.90) m/uL Hgb 8.8 L (13.0-17.5) gm/dL Hct 26.0 L (39.0-53.0) % Plt Count 130 L (150-450) k/uL Carbon Dioxide (22-30) mmol/L BUN (9-20) mg/dL Glucose (74-99) mg/dL POC Glucose (mg/dL) 145 H (75-99) mg/dL Calcium (8.4-10.2) mg/dL Crossmatch See Detail 07/06/21 07/06/21 07/06/21 Range/Units 16:45 19:44 20:17 WBC (3.8-10.6) k/uL RBC 2.58 L (4.30-5.90) m/uL Hgb 7.7 L (13.0-17.5) gm/dL Hct 23.6 L (39.0-53.0) % Plt Count 109 L (150-450) k/uL Carbon Dioxide (22-30) mmol/L BUN (9-20) mg/dL Glucose (74-99) mg/dL POC Glucose (mg/dL) 164 H 138 H (75-99) mg/dL Calcium (8.4-10.2) mg/dL Crossmatch 07/07/21 07/07/21 07/07/21 Range/Units 05:48 07:30 07:30 WBC 10.9 H (3.8-10.6) k/uL RBC 2.64 L (4.30-5.90) m/uL Hgb 8.0 L (13.0-17.5) gm/dL Hct 24.7 L (39.0-53.0) % Plt Count 122 L (150-450) k/uL Carbon Dioxide 35 H (22-30) mmol/L BUN 28 H (9-20) mg/dL Glucose 110 H (74-99) mg/dL POC Glucose (mg/dL) 143 H (75-99) mg/dL Calcium 7.3 L (8.4-10.2) mg/dL Crossmatch Assessment and Plan (1) GI bleed Narrative/Plan: 80-year-old male who presented to the emergency department with complaints of multiple episodes of bright red blood per rectum. States he was having bright red blood with clots which was painless. Denies any abdominal pain, nausea, or vomiting. Her last colonoscopy was approximately 15 years ago. He does state he has a history of an ulcer. He is not on any blood thinners or does not take NSAIDs regularly. On admission his hemoglobin was stable at 13.7. He does have a history of COPD and is oxygen dependent follows with Dr. Mackey. Likely dealing with a diverticular bleed however other possible etiologies need to be considered. Patient also has history of peptic ulcer disease. Will proceed with EGD and colonoscopy if cleared by pulmonology. Patient underwent EGD and colonoscopy yesterday. EGD was normal with no active bleeding or old blood. Colonoscopy revealed diffuse diverticulosis with fresh blood noted throughout the entire colon more predominant in the sigmoid and descending colon, likely source of bleeding as his left-sided diverticulosis. He also had a polyp in the ascending colon that was removed. He is not having any further bleeding today. Hemoglobin is stable at 8.0. Current Visit: Yes Status: Acute Code(s): K92.2 - GASTROINTESTINAL HEMORRHAGE, UNSPECIFIED SNOMED Code(s): 21014981 (2) COPD (chronic obstructive pulmonary disease) Narrative/Plan: Pulmonology consulted to evaluate patient for clearance for EGD and colonoscopy. Patient follows with Dr. Mackey. He is oxygen dependent and is having some labored respirations. Patient seen by pulmonology and cleared to proceed with EGD and colonoscopy. Current Visit: Yes Status: Acute Code(s): J44.9 - CHRONIC OBSTRUCTIVE PULMONARY DISEASE, UNSPECIFIED SNOMED Code(s): 35747902 Plan: 1. Continue symptomatic and supportive care 2. Advance to full liquid diet, may advance as tolerated 3. Daily CBC and transfuse for hemoglobin less than 7 4. Protonix 40 mg daily 5. Patient is status post EGD and colonoscopy Thank you for this consultation, we will continue to follow closely. Dr. Irma Kaiser I agree with the dictator's note, documented as a scribe by Apolonia Winchester.
--- NOTE | 2021-07-07 16:28 | P.PN ---
Subjective Progress Note Date: 07/07/21 Principal diagnosis: Rectal bleeding This is a 80-year-old white male patient with known history of severe stage IV COPD with FEV1 of 0.35 L or 12% of predicted on home oxygen usually wears 3 L, normally sees Dr. Mackey in the pulmonary clinic for his COPD. Patient is a former smoker, he quit smoking over 25 years ago. Other medical history is significant for hypertension, hyperlipidemia, diabetes mellitus type 2, BPH, chronic dermatitis, patient is hard of hearing, previous history of GI bleeding and a gastric ulcer. He came into the emergency department on 07/04/2021 for evaluation of several episodes of bright red blood per rectum that started this morning. Patient states he had a total of 6 episodes thus far today, with large amount of bright red rectal bleeding. He woke up this morning to blood coming from his rectum. He is not on any blood thinners. He denies any abdominal pain, no nausea or vomiting. He states his bowel movements have been regular. Denied any lightheadedness, denied any dizziness, no chest pain, he does admit to mild shortness of breath, not significantly worse from his baseline. Denies any cough, no fever or chills. Blood work in the emergency department revealed a hemoglobin of 13.7, white blood cell count of 8.2, platelet count is 173, INR is 1.0, sodium is 137, potassium is 4.3, chloride is 97, CO2 is 35, B1 is 27 cre atinine is 1.05, lactic acid is 1.6, magnesium was 1.9, troponin is less than 0.012, stool for occult blood was positive. Patient is usually maintained on Spiriva, Ventolin inhaler on the regular basis. Patient is seen in the emergency department, he is mildly dyspneic, but appears to be in no acute distress, he is on 4 L of oxygen pulse ox of 98%, blood pressure is 116/63, he is in sinus mechanism with a rate of 82, he is afebrile. He is mildly dyspneic and wheezy on today's exam. Abdomen is soft, no hematemesis, he is being considered for endoscopic evaluation with colonoscopy,we were asked to see the patient for pulmonary clearance for colonoscopy On today's evaluation on 07/05/2031 patient seen in follow-up on [facility] care unit, since yesterday patient has had multiple episodes of bright red stools. Today's hemoglobin is 9.6, patient is receiving 1 unit of packed red blood ce lls. No abdominal pain, no vomiting, patient is on clear liquid diet. Yesterday we saw the patient consultation, patient has advanced COPD with baseline FEV1 of 12%, he is on home oxygen. Patient was more short of breath than usual, had wheezing on physical exam. We placed him back on nebulized bronchodilators, and IV steroids, he is breathing better on today's exam. he was seen in consultation by GI service possibly tomorrow. His blood pressure has remained stable, no complaints of chest pain, or worsening dyspnea. On 07/07/2021 patient seen in follow-up on selective care unit, patient underwent EGD colonoscopy yesterday, EGD showed no evidence of acute upper GI bleed, normal mucosa, colonoscopy revealed diffuse diverticulosis with fresh blood noted throughout the entire colon that was more prominent in the sigmoid and descending colon. Patient states he didn't have any bloody bowel movements overnight, this morning she passed one bowel movement which is formed and brown. Today's labs have been reviewed, his hemoglobin is 8.0, electrolytes are fairly unremarkable, B1 is 28 creatinine 0.94. CO2 was 35. Gait is breathing easier improving, he is currently on 4 L of oxygen pulse ox is 98%, only mild wheezing on today's exam, he continues on nebulized bronchodilators, and he continues on IV steroids with Solu-Medrol 40 mg every 8 hours Objective - Vital Signs Vital signs: Vital Signs Temp 97.7 F 07/07/21 12:00 Pulse 63 07/07/21 15:32 Resp 18 07/07/21 12:00 BP 112/56 07/07/21 12:00 Pulse Ox 98 07/07/21 15:26 Intake & Output 07/06/21 07/07/21 07/07/21 18:59 06:59 18:59 Intake Total 1050 236 Output Total 400 Balance 1050 -164 Weight 80.2 kg 80.2 kg Intake: IV 100 Oral 640 236 Blood Product 310 Rc As-1 Unit 310 [id number] Output: Urine 400 Other: Voiding Method Urinal # Voids 2 2 # Bowel Movements 1 - Exam GENERAL EXAM: Alert, very pleasant, 80-year-old white male, in no acute distress, patient is on 4 L of oxygen with a pulse ox of 98%, comfortable in no apparent distress. HEAD: Normocephalic/atraumatic. EYES: Normal reaction of pupils, equal size. Conjunctiva pink, sclera white. NOSE: Clear with pink turbinates. THROAT: No erythema or exudates. NECK: No masses, no JVD, no thyroid enlargement, no adenopathy. CHEST: No chest wall deformity. Symmetrical expansion. LUNGS: Equal air entry with no crackles, wheeze, rhonchi or dullness. CVS: Regular rate and rhythm, normal S1 and S2, no gallops, no murmurs, no rubs ABDOMEN: Soft, obese, nontender. No hepatosplenomegaly, normal bowel sounds, no guarding or rigidity. EXTREMITIES: No clubbing, no edema, no cyanosis, 2+ pulses and upper and lower extremities. MUSCULOSKELETAL: Muscle strength and tone normal. SPINE: No scoliosis or deformity SKIN: No rashes CENTRAL NERVOUS SYSTEM: Alert and oriented -3. No focal deficits, tone is normal in all 4 extremities. PSYCHIATRIC: Alert and oriented -3. Appropriate affect. Intact judgment and insight. - Labs CBC & Chem 7: 07/07/21 07:30 07/07/21 07:30 Labs: Abnormal Lab Results - Last 24 Hours (Table) 07/06/21 07/06/21 07/06/21 Range/Units 16:45 19:44 20:17 WBC (3.8-10.6) k/uL RBC 2.58 L (4.30-5.90) m/uL Hgb 7.7 L (13.0-17.5) gm/dL Hct 23.6 L (39.0-53.0) % Plt Count 109 L (150-450) k/uL Carbon Dioxide (22-30) mmol/L BUN (9-20) mg/dL Glucose (74-99) mg/dL POC Glucose (mg/dL) 164 H 138 H (75-99) mg/dL Calcium (8.4-10.2) mg/dL 07/07/21 07/07/21 07/07/21 Range/Units 05:48 07:30 07:30 WBC 10.9 H (3.8-10.6) k/uL RBC 2.64 L (4.30-5.90) m/uL Hgb 8.0 L (13.0-17.5) gm/dL Hct 24.7 L (39.0-53.0) % Plt Count 122 L (150-450) k/uL Carbon Dioxide 35 H (22-30) mmol/L BUN 28 H (9-20) mg/dL Glucose 110 H (74-99) mg/dL POC Glucose (mg/dL) 143 H (75-99) mg/dL Calcium 7.3 L (8.4-10.2) mg/dL 07/07/21 Range/Units 11:42 WBC (3.8-10.6) k/uL RBC (4.30-5.90) m/uL Hgb (13.0-17.5) gm/dL Hct (39.0-53.0) % Plt Count (150-450) k/uL Carbon Dioxide (22-30) mmol/L BUN (9-20) mg/dL Glucose (74-99) mg/dL POC Glucose (mg/dL) 112 H (75-99) mg/dL Calcium (8.4-10.2) mg/dL Assessment and Plan Plan: Assessment: #1. Acute GI bleeding, patient presenting with several episodes of bright red blood per rectum. Admission hemoglobin is 13.7, is currently down to 8.0. Patient has received 2 units of packed red blood cells #2. Diffuse there is ecchymosis noted on colonoscopy, throughout the entire colon, more predominant in the sigmoid and descending colon. EGD was normal #3. Severe stage IV COPD with baseline FEV1 of 0.35 L or 12% of predicted, on home oxygen usually wears 3 L on a regular basis #4. Acute on chronic shortness of breath, possibly related to acute blood loss anemia, x-rays pending #5. Hypertension #6. Hyperlipidemia #7. Benign prostatic hypertrophy #8. Diabetes mellitus type 2 with diabetic neuropathy #9. Chronic dermatitis #10. 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 History of GI bleeding and gastric ulcer Plan: Continue current medical treatment, continue IV steroids we'll decrease the dose down to 40 mg every 12 hours, Codey nebulized bronchodilators Results the EGD and colonoscopy were noted Patient is starting to pass brown stool with no visible blood in Monitor closely management and monitoring, monitor H&H we'll continue to follow Time with Patient: Less than 30
[2021-07-07 16:47] LABS: Glucose,Whole Blood 128 mg/dL (75-99)
[2021-07-07 20:47] LABS: Glucose,Whole Blood 191 mg/dL (75-99)
[2021-07-07] MEDS: PRAVASTATIN SODIUM 40 MG TAB PO SCH (21:34)
[2021-07-07] MEDS: PROPRANOLOL LA 60 MG CAP.SA.24H PO SCH (21:36)
[2021-07-07] MEDS: ALBUTEROL NEBULIZED 2.5 MG/3 ML INHALATION PRN (23:50)
[2021-07-08] MEDS: IPRATROPIUM-ALBUTEROL 3 ML NEB INHALATION SCH ×5 (02:58→20:50)
[2021-07-08] MEDS: ALBUTEROL NEBULIZED 2.5 MG/3 ML INHALATION PRN ×3 (02:58→11:33)
[2021-07-08 06:20] LABS: Glucose,Whole Blood 172 mg/dL (75-99)
[2021-07-08] MEDS: INSULIN ASPART (NovoLOG) 100 UNIT/ML VIAL SQ SCH ×3 (06:46→16:41)
[2021-07-08] MEDS: FLUTICASONE 220 MCG INHALER INHALATION SCH ×2 (07:42→20:50)
[2021-07-08] MEDS: methylPREDNISolone SOD SUCCI 40 MG/ML 1 ML VIAL IV SCH (08:39)
[2021-07-08] MEDS: CYANOCOBALAMIN 500 MCG TAB PO SCH (08:39)
[2021-07-08] MEDS: CHLORTHALIDONE 25 MG TAB PO SCH (08:39)
[2021-07-08] MEDS: PYRIDOXINE 50 MG TAB PO SCH (08:39)
[2021-07-08] MEDS: PANTOPRAZOLE 40 MG/10 ML VIAL IVP SCH (08:39)
[2021-07-08] MEDS: FLUTICASONE 50MCG/SPRAY NASAL 16GM EA NOSTRIL SCH ×2 (08:40→20:24)
[2021-07-08] MEDS: TADALAFIL 5 MG PO SCH (08:40)
[2021-07-08] MEDS: PREGABALIN 75 MG CAP PO SCH ×2 (08:40→20:24)
[2021-07-08] MEDS: LOSARTAN 50 MG TAB PO SCH (08:40)
[2021-07-08] MEDS: DOXAZOSIN 4 MG TAB PO SCH (08:40)
[2021-07-08 11:54] LABS: Glucose,Whole Blood 189 mg/dL (75-99)
--- NOTE | 2021-07-08 12:09 | CONS ---
CONSULTATION DATE OF SERVICE: 07/08/2021. HISTORY: The patient is a 80-year-old pleasant white male admitted to hospital with acute GI bleed. He had an upper endoscopy as well as colonoscopy done 2 days ago that showed evidence of diffuse diverticulosis, which possibly was the source of bleeding. The patient is doing better now. No further bleeding. He had 3 bowel movements yesterday with no blood in the stool. Last hemoglobin yesterday was 8 g/dL. He denies any abdominal pain. No nausea, no vomiting. No new symptoms. PHYSICAL EXAMINATION: Blood pressure is 119/66, pulse rate 66, temperature 97.6. HEENT examination unremarkable. Conjunctivae pink. Sclerae anicteric. Oral cavity no lesions neck no JVD abdomen chest was clear to auscultation. Heart regular rate and rhythm. ABDOMEN: Soft bowel sounds are positive no organomegaly. Extremities no pedal edema. Neuro he is alert and oriented x3. No focal deficits. LABS: From yesterday, WBC 10.9, hemoglobin 8, platelets normal. IMPRESSION: 1. Acute GI bleed possibly diverticular in nature, the bleeding subsided. Status post EGD and colonoscopy 2 days ago that showed fresh blood throughout the entire colon, more in the left colon suggestive of left-sided diverticular bleed. Hemoglobin is stable. Bleeding has spontaneously subsided. He is status post 2 units of PRBC transfusion, last hemoglobin 8 g/dL. 2. Chronic obstructive pulmonary disease. 3. History of hypertension and hypercholesterolemia. RECOMMENDATIONS: 1. Continue monitoring CBC daily. 2. Advance diet as tolerated. 3. He can be discharged home from GI standpoint. Thank you for this consultation. MMODL / IJN: [id number] /
--- NOTE | 2021-07-08 12:48 | P.PN ---
Subjective Progress Note Date: 07/08/21 This is a 80-year-old white male patient with known history of severe stage IV COPD with FEV1 of 0.35 L or 12% of predicted on home oxygen usually wears 3 L, normally sees Dr. Mackey in the pulmonary clinic for his COPD. Patient is a former smoker, he quit smoking over 25 years ago. Other medical history is significant for hypertension, hyperlipidemia, diabetes mellitus type 2, BPH, chronic dermatitis, patient is hard of hearing, previous history of GI bleeding and a gastric ulcer. He came into the emergency department on 07/04/2021 for evaluation of several episodes of bright red blood per rectum that started this morning. Patient states he had a total of 6 episodes thus far today, with large amount of bright red rectal bleeding. He woke up this morning to blood coming from his rectum. He is not on any blood thinners. He denies any abdominal pain, no nausea or vomiting. He states his bowel movements have been regular. Denied any lightheadedness, denied any dizziness, no chest pain, he does admit to mild shortness of breath, not significantly worse from his baseline. Denies any cough, no fever or chills. Blood work in the emergency department revealed a hemoglobin of 13.7, white blood cell count of 8.2, platelet count is 173, INR is 1.0, sodium is 137, potassium is 4.3, chloride is 97, CO2 is 35, B1 is 27 creatinine is 1.05, lactic acid is 1.6, magnesium was 1.9, troponin is less than 0.012, stool for occult blood was positive. Patient is usually maintained on Spiriva, Ventolin inhaler on the regular basis. Patient is seen in the emergency department, he is mildly dyspneic, but appears to be in no acute distress, he is on 4 L of oxygen pulse ox of 98%, blood pressure is 116/63, he is in sinus mechanism with a rate of 82, he is afebrile. He is mildly dyspneic and wheezy on today's exam. Abdomen is soft, no hematemesis, he is being considered for endoscopic evaluation with colonoscopy,we were asked to see the patient for pulmonary clearance for colonoscopy On today's evaluation on 07/05/2031 patient seen in follow-up on [facility] care unit, since yesterday patient has had multiple episodes of bright red stools. Today's hemoglobin is 9.6, patient is receiving 1 unit of packed red blood cells. No abdominal pain, no vomiting, patient is on clear liquid diet. Yesterday we saw the patient consultation, patient has advanced COPD with baseline FEV1 of 12%, he is on home oxygen. Patient was more short of breath than usual, had wheezing on physical exam. We placed him back on nebulized bronchodilators, and IV steroids, he is breathing better on today's exam. he was seen in consultation by GI service possibly tomorrow. His blood pressure has remained stable, no complaints of chest pain, or worsening dyspnea. On 07/07/2021 patient seen in follow-up on selective care unit, patient underwent EGD colonoscopy yesterday, EGD showed no evidence of acute upper GI bleed, normal mucosa, colonoscopy revealed diffuse diverticulosis with fresh blood noted throughout the entire colon that was more prominent in the sigmoid and descending colon. Patient states he didn't have any bloody bowel movements overnight, this morning she passed one bowel movement which is formed and brown. Today's labs have been reviewed, his hemoglobin is 8.0, electrolytes are fairly unremarkable, B1 is 28 creatinine 0.94. CO2 was 35. Gait is breathing easier improving, he is currently on 4 L of oxygen pulse ox is 98%, only mild wheezing on today's exam, he continues on nebulized bronchodilators, and he continues on IV steroids with Solu-Medrol 40 mg every 8 hours On 07/08/2021, the patient has no further bouts of GI bleeding. His resting comfortably in bed. EGD was done and showed no upper GI source of bleeding. Colonoscopy was done and showed diverticulosis. This was mainly involving the sigmoid and descending colon. His hemoglobin is stable for now and the patient is being advanced on his diet. The patient otherwise has no specific complaints. COPD stable. He is on bronchodilators. He was on IV Solu-Medrol. This will be discontinued as the patient's overall respiratory status is stable. No other significant events overnight. Most recent hemoglobin from yesterday was 8.0. Follow-up levels are pending for today. He is on 4 L of oxygen nasal cannula with pulse ox of 97%. Objective - Vital Signs Vital signs: Vital Signs Temp 97.7 F 07/08/21 08:35 Pulse 67 07/08/21 12:05 Resp 18 07/08/21 12:05 BP 123/53 07/08/21 12:05 Pulse Ox 97 07/08/21 12:05 Intake & Output 07/07/21 07/08/21 07/08/21 18:59 06:59 18:59 Intake Total 476 240 Output Total 401 180 Balance 75 -180 240 Weight 80.2 kg 80 kg Intake: Oral 476 240 Output: Urine 400 180 Stool 1 Other: Voiding Method Urinal Bedside Commode Bedside Commode # Voids 2 1 # Bowel Movements 1 1 - Exam GENERAL EXAM: Alert, very pleasant, 80-year-old white male, in no acute d istress, patient is on 4 L of oxygen with a pulse ox of 98%, comfortable in no apparent distress. HEAD: Normocephalic/atraumatic. EYES: Normal reaction of pupils, equal size. Conjunctiva pink, sclera white. NOSE: Clear with pink turbinates. THROAT: No erythema or exudates. NECK: No masses, no JVD, no thyroid enlargement, no adenopathy. CHEST: No chest wall deformity. Symmetrical expansion. LUNGS: Equal air entry with no crackles, wheeze, rhonchi or dullness. CVS: Regular rate and rhythm, normal S1 and S2, no gallops, no murmurs, no rubs ABDOMEN: Soft, obese, nontender. No hepatosplenomegaly, normal bowel sounds, no guarding or rigidity. EXTREMITIES: No clubbing, no edema, no cyanosis, 2+ pulses and upper and lower extremities. MUSCULOSKELETAL: Muscle strength and tone normal. SPINE: No scoliosis or deformity SKIN: No rashes CENTRAL NERVOUS SYSTEM: Alert and oriented -3. No focal deficits, tone is normal in all 4 extremities. PSYCHIATRIC: Alert and oriented -3. Appropriate affect. Intact judgment and insight. - Labs CBC & Chem 7: 07/07/21 07:30 07/07/21 07:30 Labs: Abnormal Lab Results - Last 24 Hours (Table) 07/07/21 07/07/21 07/08/21 Range/Units 16:45 20:44 06:04 POC Glucose (mg/dL) 128 H 191 H 172 H (75-99) mg/dL 07/08/21 Range/Units 11:52 POC Glucose (mg/dL) 189 H (75-99) mg/dL Assessment and Plan Plan: #1. Acute GI bleeding, patient presenting with several episodes of bright red blood per rectum after dropping the hemoglobin, the patient received a total of 2 units of packed RBC. Colonoscopy was done and showed diverticulosis and lower GI source of bleeding. No intervention was done and the patient's bleeding stopped spontaneously. #2. Diffuse there is ecchymosis noted on colonoscopy, throughout the entire colon, more predominant in the sigmoid and descending colon. EGD was normal #3. Severe stage IV COPD with baseline FEV1 of 0.35 L or 12% of predicted, on home oxygen usually wears 3 L on a regular basis, currently on 4 L, inactive in stable #4. Acute on chronic shortness of breath, possibly related to acute blood loss anemia, improved #5. Hypertension #6. Hyperlipidemia #7. Benign prostatic hypertrophy #8. Diabetes mellitus type 2 with diabetic neuropathy #9. Chronic dermatitis #10. 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 History of GI bleeding and gastric ulcer Plan: Continue bronchodilators Stop IV Solu-Medrol Monitor hemoglobin Advance diet Results the EGD and colonoscopy were noted Patient is starting to pass brown stool with no visible blood in Monitor closely management and monitoring, monitor H&H we'll continue to follow Possible discharge within next 24-48 hours
--- NOTE | 2021-07-08 13:50 | P.PN ---
Subjective Progress Note Date: 07/08/21 Doing much better overall, still has some complaints of shortness of breath. No further episodes of bleeding in the stools. Objective - Vital Signs Vital signs: Vital Signs Temp 97.7 F 07/08/21 08:35 Pulse 67 07/08/21 12:05 Resp 18 07/08/21 12:05 BP 123/53 07/08/21 12:05 Pulse Ox 97 07/08/21 12:05 Intake & Output 07/07/21 07/08/21 07/08/21 18:59 06:59 18:59 Intake Total 476 240 Output Total 401 180 Balance 75 -180 240 Weight 80.2 kg 80 kg Intake: Oral 476 240 Output: Urine 400 180 Stool 1 Other: Voiding Method Urinal Bedside Commode Bedside Commode # Voids 2 1 # Bowel Movements 1 1 - Exam Gen: awake, alert HEENT: normocephalic, atraumatic, good hearing acuity, moist mucous membranes Resp: CTAB, diminished air exchange CVS: good distal perfusion x 4, RRR, no murmurs GI: soft, NTTP, ND : no SPT, no CVAT, tom catheter not present MSK: no pitting edema, no clubbing Neuro: non-focal, moving all extremities Psych: cooperative, euthymic mood - Labs CBC & Chem 7: 07/07/21 07:30 07/07/21 07:30 Labs: Abnormal Lab Results - Last 24 Hours (Table) 07/07/21 07/07/21 07/08/21 Range/Units 16:45 20:44 06:04 POC Glucose (mg/dL) 128 H 191 H 172 H (75-99) mg/dL 07/08/21 Range/Units 11:52 POC Glucose (mg/dL) 189 H (75-99) mg/dL Assessment and Plan Assessment: Lower GI bleed -Admit to observation, telemetry -GI consult for colonoscopy = diverticulosis, one polyp removed -Clear liquid diet with plans to prep for EGD/colo on 07/06 -Trend CBC -1U PRBC on 07/05 -1U PRBC on 07/06 -Maintain active type and screen -Maintain large-bore IV access -Close monitoring of hemodynamics COPD exacerbation Chronic respiratory failure -Oxygen when necessary -Pulmonology consulted -duonebs q4h, add flutter valve, hypertonic saline to help clear sputum -can consider roflumilast on d/c in this chronic bronchitis patient -solumedrol tapered Diabetes type 2 Hypertension Hyperlipidemia GERD with esophagitis -Home medications reviewed and reconciled Patient is a no code DVT prophylaxis is contraindicated Daughter is DURABLE POWER OF FINISHING AREA OPERATOR
[2021-07-08 16:39] LABS: Glucose,Whole Blood 346 mg/dL (75-99)
[2021-07-08 16:40] LABS: Glucose,Whole Blood 121 mg/dL (75-99)
[2021-07-08] MEDS: HYPERTONIC SALINE 3% NEBULIZ 4 ML NEBU INHALATION SCH (16:56)
[2021-07-08 19:34] LABS: Glucose,Whole Blood 177 mg/dL (75-99)
[2021-07-08] MEDS: PRAVASTATIN SODIUM 40 MG TAB PO SCH (20:24)
[2021-07-08] MEDS: PROPRANOLOL LA 60 MG CAP.SA.24H PO SCH (20:25)
[2021-07-09] MEDS: IPRATROPIUM-ALBUTEROL 3 ML NEB INHALATION SCH ×4 (00:55→11:34)
[2021-07-09] MEDS: HYPERTONIC SALINE 3% NEBULIZ 4 ML NEBU INHALATION SCH ×2 (00:55→08:12)
[2021-07-09] MEDS: ALBUTEROL NEBULIZED 2.5 MG/3 ML INHALATION PRN (04:52)
[2021-07-09 05:59] LABS: Glucose,Whole Blood 122 mg/dL (75-99)
[2021-07-09] MEDS: INSULIN ASPART (NovoLOG) 100 UNIT/ML VIAL SQ SCH ×2 (06:14→11:56)
[2021-07-09] MEDS: FLUTICASONE 220 MCG INHALER INHALATION SCH (08:15)
[2021-07-09 08:40] LABS: Basophils % (A) 0 %; Eosinophils % (A) 0 %; HCT 23.9 % (39.0-53.0); HGB 7.6 gm/dL (13.0-17.5); Hypochromasia Slight; Lymphocytes % (A) 10 %; MCH 30.2 pg (25.0-35.0); MCV 94.4 fL (80.0-100.0); Mean Platelet Volume 8.1; Monocytes # (A) 0.8 k/uL (0-1.0); Monocytes % (A) 8 %; Neutrophils % (A) 80 %; Platelet Count 162 k/uL (150-450); RBC 2.53 m/uL (4.30-5.90); RDW 14.9 % (11.5-15.5)
[2021-07-09 09:15] VITALS: TEMP 97.8
[2021-07-09] MEDS: PYRIDOXINE 50 MG TAB PO SCH (09:18)
[2021-07-09] MEDS: PREGABALIN 75 MG CAP PO SCH (09:18)
[2021-07-09] MEDS: DOXAZOSIN 4 MG TAB PO SCH (09:18)
[2021-07-09] MEDS: LOSARTAN 50 MG TAB PO SCH (09:18)
[2021-07-09] MEDS: CHLORTHALIDONE 25 MG TAB PO SCH (09:18)
[2021-07-09] MEDS: CYANOCOBALAMIN 500 MCG TAB PO SCH (09:18)
[2021-07-09] MEDS: TADALAFIL 5 MG PO SCH (09:19)
[2021-07-09] MEDS: FLUTICASONE 50MCG/SPRAY NASAL 16GM EA NOSTRIL SCH (09:19)
[2021-07-09] MEDS: PANTOPRAZOLE 40 MG/10 ML VIAL IVP SCH (09:19)
--- NOTE | 2021-07-09 10:11 | P.PN ---
Subjective Progress Note Date: 07/09/21 This is a 80-year-old white male patient with known history of severe stage IV COPD with FEV1 of 0.35 L or 12% of predicted on home oxygen usually wears 3 L, normally sees Dr. Mackey in the pulmonary clinic for his COPD. Patient is a former smoker, he quit smoking over 25 years ago. Other medical history is significant for hypertension, hyperlipidemia, diabetes mellitus type 2, BPH, chronic dermatitis, patient is hard of hearing, previous history of GI bleeding and a gastric ulcer. He came into the emergency department on 07/04/2021 for evaluation of several episodes of bright red blood per rectum that started this morning. Patient states he had a total of 6 episodes thus far today, with large amount of bright red rectal bleeding. He woke up this morning to blood coming from his rectum. He is not on any blood thinners. He denies any abdominal pain, no nausea or vomiting. He states his bowel movements have been regular. Denied any lightheadedness, denied any dizziness, no chest pain, he does admit to mild shortness of breath, not significantly worse from his baseline. Denies any cough, no fever or chills. Blood work in the emergency department revealed a hemoglobin of 13.7, white blood cell count of 8.2, platelet count is 173, INR is 1.0, sodium is 137, potassium is 4.3, chloride is 97, CO2 is 35, B1 is 27 creatinine is 1.05, lactic acid is 1.6, magnesium was 1.9, troponin is less than 0.012, stool for occult blood was positive. Patient is usually maintained on Spiriva, Ventolin inhaler on the regular basis. Patient is seen in the emergency department, he is mildly dyspneic, but appears to be in no acute distress, he is on 4 L of oxygen pulse ox of 98%, blood pressure is 116/63, he is in sinus mechanism with a rate of 82, he is afebrile. He is mildly dyspneic and wheezy on today's exam. Abdomen is soft, no hematemesis, he is being considered for endoscopic evaluation with colonoscopy,we were asked to see the patient for pulmonary clearance for colonoscopy On today's evaluation on 07/05/2031 patient seen in follow-up on [facility] care unit, since yesterday patient has had multiple episodes of bright red stools. Today's hemoglobin is 9.6, patient is receiving 1 unit of packed red blood cells. No abdominal pain, no vomiting, patient is on clear liquid diet. Yesterday we saw the patient consultation, patient has advanced COPD with baseline FEV1 of 12%, he is on home oxygen. Patient was more short of breath than usual, had wheezing on physical exam. We placed him back on nebulized bronchodilators, and IV steroids, he is breathing better on today's exam. he was seen in consultation by GI service possibly tomorrow. His blood pressure has remained stable, no complaints of chest pain, or worsening dyspnea. On 07/07/2021 patient seen in follow-up on selective care unit, patient underwent EGD colonoscopy yesterday, EGD showed no evidence of acute upper GI bleed, normal mucosa, colonoscopy revealed diffuse diverticulosis with fresh blood noted throughout the entire colon that was more prominent in the sigmoid and descending colon. Patient states he didn't have any bloody bowel movements overnight, this morning she passed one bowel movement which is formed and brown. Today's labs have been reviewed, his hemoglobin is 8.0, electrolytes are fairly unremarkable, B1 is 28 creatinine 0.94. CO2 was 35. Gait is breathing easier improving, he is currently on 4 L of oxygen pulse ox is 98%, only mild wheezing on today's exam, he continues on nebulized bronchodilators, and he continues on IV steroids with Solu-Medrol 40 mg every 8 hours On 07/08/2021, the patient has no further bouts of GI bleeding. His resting comfortably in bed. EGD was done and showed no upper GI source of bleeding. Colonoscopy was done and showed diverticulosis. This was mainly involving the sigmoid and descending colon. His hemoglobin is stable for now and the patient is being advanced on his diet. The patient otherwise has no specific complaints. COPD stable. He is on bronchodilators. He was on IV Solu-Medrol. This will be discontinued as the patient's overall respiratory status is stable. No other significant events overnight. Most recent hemoglobin from yesterday was 8.0. Follow-up levels are pending for today. He is on 4 L of oxygen nasal cannula with pulse ox of 97%. On today's evaluation of 07/09/2021, the patient is doing well. No specific complaints. No further bouts of bleeding. The patient's hemoglobin is stable. The patient is also stable in terms of his COPD on DuoNeb nebulized treatments around the clock and no other issues for now. He is ambulating. He is breathing is nonlabored. His hemoglobin is at 7.6, slightly 2 days ago. Glucose at 122. He remains on oxygen at 4 L per minute nasal cannula. Is c urrently off steroids. No nausea. No vomiting. No abdominal pain. Objective - Vital Signs Vital signs: Vital Signs Temp 97.8 F 07/09/21 09:14 Pulse 70 07/09/21 09:25 Resp 22 07/09/21 09:25 BP 108/59 07/09/21 09:14 Pulse Ox 94 L 07/09/21 09:14 Intake & Output 07/08/21 07/09/21 07/09/21 18:59 06:59 18:59 Intake Total 600 240 Output Total 2 Balance 600 -2 240 Weight 82.8 kg Intake: Oral 600 240 Output: Urine 2 Other: Voiding Method Bedside Commode Bedside Commode Bedside Commode # Voids 1 210 # Bowel Movements 1 - Exam GENERAL EXAM: Alert, very pleasant, 80-year-old white male, in no acute distress, patient is on 4 L of oxygen with a pulse ox of 98%, comfortable in no apparent distress. HEAD: Normocephalic/atraumatic. EYES: Normal reaction of pupils, equal size. Conjunctiva pink, sclera white. NOSE: Clear with pink turbinates. THROAT: No erythema or exudates. NECK: No masses, no JVD, no thyroid enlargement, no adenopathy. CHEST: No chest wall deformity. Symmetrical expansion. LUNGS: Equal air entry with no crackles, wheeze, rhonchi or dullness. CVS: Regular rate and rhythm, normal S1 and S2, no gallops, no murmurs, no rubs ABDOMEN: Soft, obese, nontender. No hepatosplenomegaly, normal bowel sounds, no guarding or rigidity. EXTREMITIES: No clubbing, no edema, no cyanosis, 2+ pulses and upper and lower extremities. MUSCULOSKELETAL: Muscle strength and tone normal. SPINE: No scoliosis or deformity SKIN: No rashes CENTRAL NERVOUS SYSTEM: Alert and oriented -3. No focal deficits, tone is normal in all 4 extremities. PSYCHIATRIC: Alert and oriented -3. Appropriate affect. Intact judgment and insight. - Labs CBC & Chem 7: 07/09/21 07:57 07/07/21 07:30 Labs: Abnormal Lab Results - Last 24 Hours (Table) 07/08/21 07/08/21 07/08/21 Range/Units 11:52 16:39 16:40 RBC (4.30-5.90) m/uL Hgb (13.0-17.5) gm/dL Hct (39.0-53.0) % Neutrophils # (1.3-7.7) k/uL POC Glucose (mg/dL) 189 H 346 H 121 H (75-99) mg/dL 07/08/21 07/09/21 07/09/21 Range/Units 19:32 05:57 07:57 RBC 2.53 L (4.30-5.90) m/uL Hgb 7.6 L (13.0-17.5) gm/dL Hct 23.9 L (39.0-53.0) % Neutrophils # 8.0 H (1.3-7.7) k/uL POC Glucose (mg/dL) 177 H 122 H (75-99) mg/dL Assessment and Plan Plan: #1. Acute GI bleeding, patient presenting with several episodes of bright red blood per rectum after dropping the hemoglobin, the patient received a total of 2 units of packed RBC. Colonoscopy was done and showed diverticulosis and lower GI source of bleeding. No intervention was done and the patient's bleeding stopped spontaneously. Most recent hemoglobin is at 7.6. #2. Diffuse there is ecchymosis noted on colonoscopy, throughout the entire colon, more predominant in the sigmoid and descending colon. EGD was normal #3. Severe stage IV COPD with baseline FEV1 of 0.35 L or 12% of predicted, on home oxygen usually wears 3 L on a regular basis, currently on 4 L, inactive in stable #4. Acute on chronic shortness of breath, possibly related to acute blood loss anemia, improved #5. Hypertension #6. Hyperlipidemia #7. Benign prostatic hypertrophy #8. Diabetes mellitus type 2 with diabetic neuropathy #9. Chronic dermatitis #10. 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 History of GI bleeding and gastric ulcer Plan: Continue bronchodilators No need for systemic steroids Monitor hemoglobin, hemolytic was at 7.6 Advance diet Results the EGD and colonoscopy were noted Patient is starting to pass brown stool with no visible blood in stool and hemoglobin is at 7.6 Monitor closely management and monitoring, monitor H&H we'll continue to follow Possible discharge within next 24-48 hours Pulmonary critical care services we'll sign off.
--- NOTE | 2021-07-09 10:22 | PN ---
PROGRESS NOTE DATE OF DICTATION: 07/09/2021 Patient is a 80-year-old pleasant white male admitted to the hospital with acute lower GI bleed. He had an EGD and colonoscopy done that showed diverticular bleed which appears to have resolved. The patient had no bowel movements for the last 2 days. Overall, he is doing well. He still complains of shortness of breath. He remains on IV Solu-Medrol for exacerbation of COPD. PHYSICAL EXAMINATION: He appears comfortable. No apparent distress. VITAL SIGNS: Stable. Blood pressure is 133/86, pulse rate 80, temperature 98. HEENT EXAMINATION: Unremarkable. Conjunctivae pink. Sclerae anicteric. Oral cavity no lesions. NECK: No JVD. No lymph node enlargement. CHEST: Decreased breath sounds bilaterally. HEART: Regular rate and rhythm. ABDOMEN: Soft. It was slightly distended, but bowel sounds are positive. No organomegaly. EXTREMITIES: No pedal edema. NEURO: Alert and oriented x3. No focal deficits. LABS: Hemoglobin was 8 two days ago. No labs available from today. IMPRESSION: 1. Acute lower gastrointestinal bleed, possibly diverticular in nature, status post EGD and colonoscopy two days ago, as mentioned above. No further bleeding. 2. Exacerbation of chronic obstructive pulmonary disease. RECOMMENDATIONS: 1. Continue with regular diet. 2. Monitor CBC on a daily basis. 3. Will sign off at this time. Please call us if needed. Thank you for this consultation. DANGELO / IJN: [id number] /
[2021-07-09 11:36] VITALS: RESP 18
[2021-07-09 11:43] LABS: Glucose,Whole Blood 128 mg/dL (75-99)
[2021-07-09 11:54] VITALS: BP 95/49; PULSE 63
--- NOTE | 2021-07-09 12:38 | P.DS ---
Providers Date of admission: 07/05/21 13:37 Expected date of discharge: 07/09/21 Attending physician: Saúl Joyner MD Consults: 07/04/21 11:36 Consult Physician Urgent Consulting Provider: Carmela Kaiser Consult Reason/Comments: GI Bleed Do you want consulting provider notified?: Yes 07/04/21 11:38 Consult Physician Routine Consulting Provider: Cliff Miller Consult Reason/Comments: GI Bleed; lower, painless Do you want consulting provider notified?: Yes 07/04/21 14:27 Consult Physician Routine Consulting Provider: Morris Mackey Consult Reason/Comments: clearance for EGD/Colonoscopy Do you want consulting provider notified?: Yes Primary care physician: Ashlie Aparicio MD Hospital Course: Lower GI bleed -Admitted to observation, telemetry. GI consulted for colonoscopy and found diverticulosis, and removed one polyp. Pt tolerated diet well with no further evidence of bleeding after the procedure. Hgbs remained stable after receiving 2U PRBCs in total throughout stay. Pt to f/u with GI and PCP for ongoing mangement. COPD exacerbation Chronic respiratory failure -Oxygenated to patient's needs. He rec'd standing nebulizer therapy and burst tapered steroids with the help of pulmonary medicine. Patient did have increased sputum production c/w chronic bronchitis flare, and a flutter valve with hypertonic saline helped to clear some of this sputum. On discharge, he was started on roflumilast as a new medication to reduce likelihood of hospitalizations for COPD going forward. Pt to f/u with Dr. Mackey from pulmonology. Diabetes type 2 Hypertension Hyperlipidemia GERD with esophagitis -Home medications reviewed and reconciled, no changes made on discharge except as above. I spent 36 minutes coordinating this complex discharge. Assessment: Gen: awake, alert HEENT: normocephalic, atraumatic, good hearing acuity, moist mucous membranes Resp: CTAB, diminished air exchange CVS: good distal perfusion x 4, RRR, no murmurs GI: soft, NTTP, ND : no SPT, no CVAT, tom catheter not present MSK: no pitting edema, no clubbing Neuro: non-focal, moving all extremities Psych: cooperative, euthymic mood Patient Condition at Discharge: Good Plan - Discharge Summary Discharge Rx Participant: Yes New Discharge Prescriptions: New Roflumilast [Daliresp] 500 mcg PO DAILY #30 tablet Continue metFORMIN HCL [Glucophage] 500 mg PO BID Pregabalin [Lyrica] 150 mg PO BID Pravastatin Sodium [Pravachol] 40 mg PO HS Losartan [Cozaar] 50 mg PO DAILY Chlorthalidone [Hygroton] 12.5 mg PO DAILY Albuterol Nebulized [Ventolin Nebulized] 5 mg INHALATION RT-Q4H Propranolol HCl [Propranolol HCl ER] 60 mg PO HS Ketoconazole 2% Shampoo [Nizoral] 1 applic TOPICAL DAILY Albuterol Sulfate [Proventil Hfa] 1 - 2 puff INHALATION RT-BID Cyanocobalamin (Vitamin B-12) [Vitamin B-12] 1,000 mcg PO DAILY Mometasone Furoate [Asmanex] 2 puff INHALATION RT-BID Tadalafil [Cialis] 5 mg PO DAILY Terazosin HCl 10 mg PO DAILY Selenium Sulfide Shampoo 1 applic TOPICAL MOWEFR Desonide [DesOwen .05%] 1 applic TOPICAL BID PRN PRN Reason: scaly skin on central face Fluticasone Nasal [place] [Flonase Nasal [place]] 1 spr EA NOSTRIL BID Triamcinolone 0.1% Ointment [Kenalog 0.1% Ointment] 1 applic TOPICAL Q12H PRN PRN Reason: Skin Irritation Tiotropium [place] [Spiriva Respimat] 2 puff INHALATION RT-DAILY Pyridoxine HCl (Vitamin B6) [Pyridoxine HCl] 25 mg PO DAILY Eucerin Cream 1 applic TOPICAL DAILY Clindamycin Phosphate 1 applic TOPICAL BID Discharge Medication List Chlorthalidone [Hygroton] 12.5 mg PO DAILY 07/15/15 [History] Losartan [Cozaar] 50 mg PO DAILY 07/15/15 [History] Pravastatin Sodium [Pravachol] 40 mg PO HS 07/15/15 [History] Pregabalin [Lyrica] 150 mg PO BID 07/15/15 [History] metFORMIN HCL [Glucophage] 500 mg PO BID 07/15/15 [History] Albuterol Nebulized [Ventolin Nebulized] 5 mg INHALATION RT-Q4H 05/18/17 [History] Ketoconazole 2% Shampoo [Nizoral] 1 applic TOPICAL DAILY 05/18/17 [History] Propranolol HCl [Propranolol HCl ER] 60 mg PO HS 05/18/17 [History] Albuterol Sulfate [Proventil Hfa] 1 - 2 puff INHALATION RT-BID 03/23/19 [History] Cyanocobalamin (Vitamin B-12) [Vitamin B-12] 1,000 mcg PO DAILY 03/23/19 [History] Mometasone Furoate [Asmanex] 2 puff INHALATION RT-BID 03/23/19 [History] Tadalafil [Cialis] 5 mg PO DAILY 03/23/19 [History] Terazosin HCl 10 mg PO DAILY 03/23/19 [History] Desonide [DesOwen .05%] 1 applic TOPICAL BID PRN 06/13/20 [History] Fluticasone Nasal [place] [Flonase Nasal [place]] 1 spr EA NOSTRIL BID 06/13/20 [History] Selenium Sulfide Shampoo 1 applic TOPICAL MOWEFR 06/13/20 [History] Clindamycin Phosphate 1 applic TOPICAL BID 07/04/21 [History] Eucerin Cream 1 applic TOPICAL DAILY 07/04/21 [History] Pyridoxine HCl (Vitamin B6) [Pyridoxine HCl] 25 mg PO DAILY 07/04/21 [History] Tiotropium [place] [Spiriva Respimat] 2 puff INHALATION RT-DAILY 07/04/21 [History] Triamcinolone 0.1% Ointment [Kenalog 0.1% Ointment] 1 applic TOPICAL Q12H PRN 07/04/21 [History] Roflumilast [Daliresp] 500 mcg PO DAILY #30 tablet 07/09/21 [Rx] Follow up Appointment(s)/Referral(s): Morris Mackey DO [Doctor of Osteopathic Medicine] - 1 Week [facility], [NON-STAFF] - Ashlie Aparicio MD [Primary Care Provider] - 1-2 days Patient Instructions/Handouts: Gastrointestinal Bleeding (DC), COPD (Chronic Obstructive Pulmonary Disease) (DC) Discharge Disposition: HOME SELF-CARE
== END 2021-07-09 13:44 | disposition home or self-care (01) | DRG 378 ==
LOC: EC 09:51 → 3SCARD 11:46 → OBSVTOIN 07-05 13:37
PROVIDERS: ADMIT Internal Medicine; ATTEND Internal Medicine
PROC: 30233N1 Transfusion of Nonautologous Red Blood Cells into Peripheral Vein, Percutaneous Approach (ICD-10-PCS; 2021-07-05)
PROC: 0DBK8ZX Excision of Ascending Colon, Via Natural or Artificial Opening Endoscopic, Diagnostic (ICD-10-PCS; principal; 2021-07-06 12:50)
PROC: 0DJ08ZZ Inspection of Upper Intestinal Tract, Via Natural or Artificial Opening Endoscopic (ICD-10-PCS; 2021-07-06 12:50)
DX: K57.31 Diverticulosis of large intestine without perforation or abscess with bleeding (principal); J96.11 Chronic respiratory failure with hypoxia; D62 Acute posthemorrhagic anemia; J44.1 Chronic obstructive pulmonary disease with (acute) exacerbation; E11.40 Type 2 diabetes mellitus with diabetic neuropathy, unspecified; E78.00 Pure hypercholesterolemia, unspecified; I10 Essential (primary) hypertension; E78.5 Hyperlipidemia, unspecified; G25.0 Essential tremor; K21.00 Gastro-esophageal reflux disease with esophagitis, without bleeding; H91.90 Unspecified hearing loss, unspecified ear; I95.9 Hypotension, unspecified; K63.5 Polyp of colon; L30.9 Dermatitis, unspecified; N40.0 Benign prostatic hyperplasia without lower urinary tract symptoms; Z79.84 Long term (current) use of oral hypoglycemic drugs; Z79.899 Other long term (current) drug therapy; Z87.11 Personal history of peptic ulcer disease; Z87.891 Personal history of nicotine dependence; Z99.81 Dependence on supplemental oxygen; Z88.1 Allergy status to other antibiotic agents; Z88.0 Allergy status to penicillin; Z88.8 Allergy status to other drugs, medicaments and biological substances; Z88.5 Allergy status to narcotic agent; Z65.5 Exposure to disaster, war and other hostilities; Z98.42 Cataract extraction status, left eye; Z98.41 Cataract extraction status, right eye; Z87.19 Personal history of other diseases of the digestive system; Z87.01 Personal history of pneumonia (recurrent); Z86.19 Personal history of other infectious and parasitic diseases
CPT/HCPCS: 36415; 43235; 45385; 71045; 80048; 80053; 82272; 83605; 83735; 84484; 85025; 85027; 85610; 85730; 86850; 86900; 86901; 86920; 88305; 93005; 94640; 94667; 94760; 96374; 96375; 99285